=== PATIENT | female | born 1940 | race Caucasian/White ===

== ENCOUNTER → 2018-06-17 09:36 | Outpatient (CLI) | payer MEDICARE, OTHER, SELFPAY ==
[2018-06-17 09:59] LABS: Add Manual Diff / Slide Review NO; Basophils Percent Auto 1.2 % (0-2); Eosinophils Percent Auto 2.6 % (2-4); Hematocrit 39.8 % (36-46); Hemoglobin 13.9 g/dL (12.0-16.0); Lymphocytes Percent Auto 22.4 % (25-40); Mean Corpuscular HGB Conc 34.9 % (30-36); Mean Corpuscular Hemoglobin 31.5 PG (26-34); Mean Corpuscular Volume 90.3 fL (80-100); Monocytes Percent Auto 9.1 % (3-14); Neutrophils Absolute Auto 3400 /uL (3000-5900); Neutrophils Percent Auto 64.7 % (50-75); Platelet Count 120 X10^3/uL (150-400); Red Blood Cell Count 4.41 X10^6/uL (4.0-5.2); Red Cell Distribution Width 12.6 % (11.6-14.8); White Blood Cell Count 5.2 X10^3/uL (4.5-11.0)
[2018-06-17 10:12] LABS: Alanine Aminotransferase 43 IU/L (9-52); Albumin 4.3 g/dL (3.5-5.0); Albumin Globulin Ratio 1.2 (1.0-2.8); Alkaline Phosphatase 63 U/L (38-126); Aspartate Aminotransferase 49 IU/L (14-36); BUN Creatinine Ratio 21.4 (6-22); Bilirubin Total 0.7 mg/dL (0.2-1.3); Blood Urea Nitrogen 15 mg/dL (7-17); Calcium 9.5 mg/dL (8.4-10.2); Carbon Dioxide 28 mmol/L (22-32); Chloride 104 mmol/L (98-107); Estimated Glomerular Filt Rate > 60.0 mL/min (>60); Globulin 3.7 g/dL (1.7-4.1); Glucose 101 mg/dL (80-110); HEMOLYSIS < 15 (0-50); Potassium 3.6 mmol/L (3.4-5.1); Sodium 141 mmol/L (137-145)
[2018-06-17 10:56] LABS: Carcinoembryonic Antigen 2.2 ng/mL (0.1-3.0)
== END ==
PROVIDERS: PCP Family Medicine; Visit Provider Internal Medicine Hematology & Oncology
DX: C34.90 Malignant neoplasm of unspecified part of unspecified bronchus or lung (principal)
CPT/HCPCS: 36415; 80053; 82378; 85025

== ENCOUNTER → 2018-06-17 09:55 | Outpatient (CLI) | payer MEDICARE, OTHER, SELFPAY ==
--- NOTE | 2018-06-17 09:58 | DI.CT.S_ITS ---
PROCEDURE: CT CHEST W CON INDICATIONS: LUNG CANCER SURVEILLANCE TECHNIQUE: After the administration of intravenous contrast, 5 mm thick sections acquired from the pulmonary apices to the posterior costophrenic angles. 7 mm thick coronal and sagittal MIP reformats were acquired. For radiation dose reduction, the following was used: automated exposure control, adjustment of mA and/or kV according to patient size. COMPARISON: [facility], CT, CHEST/ABDOMEN WITH CONTRAST, 11/06/2016, 10:37. [facility], CT, CHEST/ABDOMEN WITH CONTRAST, 05/27/2017, 12:40. FINDINGS: Image quality: Excellent. Lungs and pleura: Redemonstration of bilateral perihilar ill-defined consolidation, confluent soft tissue attenuation, architectural distortion and ground glass attenuation. There is questionable increase in left perihilar subcentimeter focus on image 27 series 3 although other areas of previously identified consolidation appear less conspicuous. Overall, the appearance is probably unchanged accounting for slice registration artifact, since 05/27/17 No pleural effusions or pneumothorax. Central and peripheral airways are patent and normal in caliber. Upper lobe predominant centrilobular emphysema. Mediastinum: Heart size is normal. Coronary artery calcifications are noted. No pericardial effusion. Subcarinal abnormal confluent lymphoid soft tissue presumably treated disease given the unchanged appearance since the prior study. Thoracic aorta and central pulmonary arteries are normal in size. Aberrant right subclavian artery, status post stent placement. Esophagus is normal in caliber. No hiatal hernia. Bones and chest wall: No suspicious bony lesions. T7 compression fracture as before. No axillary or supraclavicular adenopathy by size criteria. Thyroid gland negative. Abdomen: Bilateral renal cortical atrophy and scarring. Hepatic steatosis. IMPRESSION: Overall, grossly unremarkable appearance of the presumed post therapeutic changes/fibrosis involving the bilateral perihilar regions since 05/27/17; no significant change. Confluent mediastinal lymphoid soft tissue also presumably treated disease given the absence of change. No specific evidence of active metastatic disease. Dictated by: Juan C Goodman M.D. on 06/17/2018 at 11:33 Approved by: Juan C Goodman M.D. on 06/17/2018 at 12:15
== END ==
PROVIDERS: PCP Family Medicine; Visit Provider Internal Medicine Hematology & Oncology
DX: C34.90 Malignant neoplasm of unspecified part of unspecified bronchus or lung (principal)
CPT/HCPCS: 36415; 71260; 80053; 82378; 85025; Q9967

== ENCOUNTER → 2018-08-12 16:00 | Outpatient (CLI) | payer MEDICARE, OTHER, SELFPAY ==
--- NOTE | 2018-08-12 16:02 | DI.RAD.S_ITS ---
PROCEDURE: XR THORACIC SPINE 3V INDICATIONS: thoracic back pain without trauma TECHNIQUE: 3 views of the thoracic spine were acquired. COMPARISON: [facility], CR, XR CHEST 2 VIEWS, 09/21/2017, 8:04. [facility], CT, CT CHEST W CON, 06/17/2018, 10:15. FINDINGS: Bones: There is a mild superior endplate deformity at T8, unchanged. There is multilevel disc desiccation is present. No suspicious bony lesions. 12 pairs of ribs are noted, and appear intact where visualized. Soft tissues: No paravertebral stripe thickening. IMPRESSION: Unchanged superior endplate deformity at T8. Multilevel disc desiccation. Dictated by: Sandy Mathews M.D. on 08/12/2018 at 17:05 Approved by: Sandy Mathews M.D. on 08/12/2018 at 17:07
== END ==
PROVIDERS: PCP Family Medicine; Visit Provider Family Medicine
DX: M54.6 Pain in thoracic spine (principal)
CPT/HCPCS: 72072

== ENCOUNTER → 2018-12-29 10:42 | Outpatient (CLI) | payer MEDICARE, OTHER, SELFPAY ==
[2018-12-29 11:23] LABS: Add Manual Diff / Slide Review NO; Basophils Absolute Auto 100 /uL (0-100); Basophils Percent Auto 1.1 % (0-2); Eosinophils Absolute Auto 100 /uL (0-450); Eosinophils Percent Auto 2.6 % (2-4); Hematocrit 41.7 % (36-46); Hemoglobin 13.9 g/dL (12.0-16.0); Lymphocytes Absolute Auto 1100 /uL (1100-4500); Lymphocytes Percent Auto 24.8 % (25-40); Mean Corpuscular HGB Conc 33.4 % (30-36); Mean Corpuscular Hemoglobin 30.5 PG (26-34); Mean Corpuscular Volume 91.2 fL (80-100); Monocytes Absolute Auto 500 /uL (0-900); Monocytes Percent Auto 10.8 % (3-14); Neutrophils Absolute Auto 2800 /uL (1500-7000); Neutrophils Percent Auto 60.7 % (50-75); Platelet Count 139 X10^3/uL (150-400); Red Blood Cell Count 4.58 X10^6/uL (4.0-5.2); Red Cell Distribution Width 13.3 % (11.6-14.8); White Blood Cell Count 4.6 X10^3/uL (4.5-11.0)
[2018-12-29 11:30] LABS: Alanine Aminotransferase 45 IU/L (9-52); Albumin 4.1 g/dL (3.5-5.0); Alkaline Phosphatase 67 U/L (38-126); Aspartate Aminotransferase 50 IU/L (14-36); BUN Creatinine Ratio 15.7 (6-22); Bilirubin Total 0.4 mg/dL (0.2-1.3); Blood Urea Nitrogen 11 mg/dL (7-17); Calcium 9.1 mg/dL (8.4-10.2); Carbon Dioxide 28 mmol/L (22-32); Chloride 102 mmol/L (98-107); Estimated Glomerular Filt Rate > 60.0 mL/min (>60); Glucose 95 mg/dL (80-110); HEMOLYSIS < 15 (0-50); Potassium 3.9 mmol/L (3.4-5.1); Sodium 140 mmol/L (137-145); Total Protein 8.1 g/dL (6.3-8.2)
[2018-12-29 11:59] LABS: Carcinoembryonic Antigen 2.5 ng/mL (0.1-3.0)
== END ==
PROVIDERS: Visit Provider Nurse Practitioner Gerontology
DX: Z85.118 Personal history of other malignant neoplasm of bronchus and lung (principal); J44.9 Chronic obstructive pulmonary disease, unspecified; I73.9 Peripheral vascular disease, unspecified; I48.91 Unspecified atrial fibrillation; Z86.718 Personal history of other venous thrombosis and embolism; F17.200 Nicotine dependence, unspecified, uncomplicated
CPT/HCPCS: 36415; 80053; 82378; 85025

== ENCOUNTER → 2019-03-10 14:40 | Oncology outpatient (ONC) | payer MEDICARE, OTHER, SELFPAY ==
[2018-07-01 14:03] VITALS: BP 106/47; PULSE 70; RESP 16; TEMP 36.4; O2SAT 99
--- NOTE | 2018-07-01 14:03 | ONC.PN ---
Assessment and Plan - Time Spent with Patient IMPRESSION: 1. 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 Stage T1 N3 by PET/CT. Completed chemoradiation therapy, November 23, [address] Pepe and Dr[address] Jessica. 2. COPD 3. Tobacco use, ongoing. 4. Weight loss, stabilized. 5. Peripheral vascular disease 6. Atrial fibrillation 7. History of DVT, 25 years ago. I reviewed her current lab results and recent CT chest from June 17, 2018 which reports stable post treatment related fibrosis without change compared with prior CT 05/27/2017. No new pulmonary nodules, masses, fluid collection or adenopathy to suggest recurrent disease. She otherwise is feeling well and appears to be stable clinically. She is very pleased with the results of her lab and CT imaging. We reviewed other issues, questions and concerns today. I strongly encouraged her in her efforts to quit smoking, hopefully permanently. Reviewed other symptoms to monitor for an to call back as needed if new concerns arise. We otherwise will plan to see her back in 6 months. PLAN: 1. Continue self monitoring and call back as needed. 2. Return appointment in 6 months. 3. CBC, CMP, CEA prior to the visit. 4. Repeat CT imaging in 6-12 months or based on symptoms or clinical concerns. 5. Follow-up with Dr. Bennett as planned. DICTATED BY GILA CHAPA MD MEDICAL ONCOLOGY AND HEMATOLOGY PN -Subjective Interval history: IDENTIFICATION: Ms. Umanzor is a 78-year-old woman with history of stage IIIB squamous cell carcinoma of the lung, diagnosed in 2014 and completed treatment with chemoradiation therapy, 11/23/2015. INTERVAL HISTORY: She returns today in follow-up to review labs and CT results. Here today with her daughter. She is under a bit more stress since her son . She had stopped smoking then restarted then quit then restarted. Otherwise, she is feeling well and gaining strength. She feels better than a few months ago and has no new symptoms or other concerns. She denies chest pain, productive cough or hemoptysis. No nausea, vomiting or abdominal discomfort, headaches or new neurologic symptoms. Anxious to learn her lab and CT results today but otherwise encouraged and feeling better. PAST MEDICAL HISTORY: 1. 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 Diagnosed by [facility] in [place]. Stage T1 N3 M0 by PET/CT. Completed chemoradiation therapy, 11/23/2015, with treatment guided by Dr. Jessica and Dr. Pepe. 2. Peripheral vascular disease. 3. COPD. 4. Tobacco use. 5. Atrial fibrillation. 6. DVT 25 years ago. 7. Status post hysterectomy with ovaries left in place. PHYSICAL EXAMINATION: She is a pleasant, thin, elderly woman who appears comfortable at today's appointment and not in acute distress. VITAL SIGNS: Blood pressure 95/50, pulse 56, respirations 18 and unlabored, temperature 98.1, weight 51.2 kg, 112.8 pounds. SKIN: No rash or ecchymoses. HEENT: Sclerae anicteric. PERRL. EOMI. Oropharynx clear. LYMPH: No palpable cervical or supraclavicular adenopathy. LUNGS: Clear bilaterally without wheeze or rales. CARDIAC: No JVD. Regular rate and rhythm. No S3. ABDOMEN: Soft, nontender. No hepatosplenomegaly or mass palpable. EXTREMITIES: Trace pedal edema bilaterally with dependent rubor. LABORATORY: 12/12/2017: WBC 5000, hemoglobin 15.1, hematocrit 43.3, platelet count 136,000. Sodium 137, potassium 4, chloride 100, CO2 29, BUN 13, creatinine 0.8, calcium 9.4, glucose 92, CEA 2. Albumin 4.4, globulin 4.4, total bilirubin 0.5, alkaline phosphatase 64, AST 69, ALT 50. IMPRESSION: 1. Stage IIIB (T1 N3) squamous cell carcinoma of the lung, diagnosed in 2014, and status post treatment with chemoradiation therapy by Dr. Pepe and Dr. Jessica, with treatment completing 11/23/2015. 2. Chronic obstructive pulmonary disease (COPD). 3. Tobacco use. 4. Weight loss, gradual and chronic, due to inadequate caloric intake by history. 5. Shoulder pain. - Additional ROS Additional ROS: Review of systems: General: No fever, night sweats. HEENT: No headaches, vision change, epistaxis or dysphagia. Respiratory as above. Cardiac: No chest pain, PND or orthopnea. GI: Negative. : Negative. Musculoskeletal: As above. Neurologic: Negative. Results - Imaging Additional studies: Procedures Colonoscopy (02/13/12) Other endoscopy of small intestine (02/13/12) Home Medications and Allergies Home Medications Medication Instructions Recorded Confirmed Type omeprazole 20 mg PO QDAY #30 cap 07/31/17 05/08/18 Rx carvedilol [Coreg] 12.5 mg PO BID #180 tab 08/13/17 05/08/18 Rx hydrocodone-acetaminophen 1 tab PO Q6HP PRN #20 tab 09/26/17 05/08/18 Rx atorvastatin [Lipitor] #0 12/13/17 05/08/18 History lisinopril #0 12/13/17 05/08/18 History primidone [Mysoline] 50 mg PO Q DAY #30 tab 02/18/18 05/08/18 Rx diphenoxylate-atropine 2.5 1 tab PO TIDP PRN #60 tab 04/04/18 05/08/18 Rx mg-0.025 mg tablet clonazepam 0.5 mg tablet 0.5 mg PO BID PRN #60 tab 05/08/18 Rx atorvastatin 40 mg tablet 40 mg PO DAILY #30 tab 06/05/18 Rx Allergies Allergy/AdvReac Type Severity Reaction Status Date / Time Penicillins [PENICILLINS] Allergy Severe RASH, SOB Verified 05/22/18 10:29 Sulfa (Sulfonamide Allergy Severe SOB Verified 05/22/18 10:29 Antibiotics) [SULFA (SULFONAMIDE ANTIBIOTICS)] Exam - Constitutional positive no acute distress, positive thin, positive cooperative - Routine HEENT Exam Head: Present: normocephalic, atraumatic. Absent: cushingoid faces, facial swelling Eye: Present: EOMI, PERRL. Absent: conjunctival icterus, scleral injection, periorbital ecchymosis, periorbital swelling ENT: Present: mucous membranes moist, oropharynx clear - Routine Neck Exam Present: full ROM. Absent: JVD, lymphadenopathy - Routine Chest/Breast/Axilla Exam Chest wall exam standard: Absent: mass Axillae: Absent: lymphadenopathy - Routine Respiratory Exam Present: Clear to auscultation bilaterally. Absent: accessory muscle use, rales, respiratory distress, rhonchi, wheezes - Routine Cardiovascular Exam Present: RRR, S1, S2. Absent: murmur, S3 - Routine Abdominal Exam Present: soft, normoactive bowel sounds. Absent: tenderness, distended, organomegaly Palpation/Percussion: Absent: hepatomegaly - Routine Extremities Exam Absent: cyanosis, clubbing, edema - Routine Back/Spine Exam Back/Spine: Absent: paraspinal tenderness, vertebral tenderness - Routine Skin Exam Present: intact. Absent: cyanosis, erythema, petechiae, jaundice, rash, ecchymosis - Routine Neurological Exam Present: alert, oriented X3, moving all extremities, normal speech. Absent: altered mental status, abnormal gait - Routine Psychiatric Exam Present: normal affect, normal thought process, cooperative, good judgment
[2019-03-10 14:45] VITALS: BP 140/88; PULSE 61; RESP 22; TEMP 36.2; O2SAT 100
--- NOTE | 2019-03-10 15:06 | ONC.PN ---
PN -Subjective Interval history: IDENTIFICATION: Ms. Umanzor is a 78-year-old woman with history of stage IIIB squamous cell carcinoma of the lung, diagnosed in 2014 and completed treatment with chemoradiation therapy, 11/23/2015. INTERVAL HISTORY: She returns today for follow-up. She has a history of squamous cell lung cancer treated with chemo radiation finishing in 2014. Today, she is feeling generally well. she has been stable in her weight. She is swallowing without any difficulty in her appetite has been fair. She denies any worsening shortness of breath or cough. She is not having any chest pain. strength and energy level have been low but stable. She has been bothered by some ongoing tremors. She notes that her memory has been poor since the chemotherapy but may be getting a little bit better. She has not noted any adenopathy. No GI complaints. She tells me that she is having some sort of test done to evaluate stents in her carotid arteries. She denies any other changes in her health. Her medications include aspirin Lipitor carvedilol lisinopril omeprazole Mysoline and tramadol. She does smoke about 3-4 cigarettes daily but has been cutting back and is trying to quit. PAST MEDICAL HISTORY: 1. 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 Diagnosed by [facility] in [place]. Stage T1 N3 M0 by PET/CT. Completed chemoradiation therapy, 11/23/2015, with treatment guided by Dr. Jessica and Dr. Pepe. 2. Peripheral vascular disease. 3. COPD. 4. Tobacco use. 5. Atrial fibrillation. 6. DVT 25 years ago. 7. Status post hysterectomy with ovaries left in place. Home Medications and Allergies Home Medications Medication Instructions Recorded Confirmed Type carvedilol [Coreg] 12.5 mg PO BID #180 tab 08/13/17 03/03/19 Rx omeprazole 20 mg capsule,delayed 20 mg PO QDAY #30 cap 08/07/18 03/03/19 Rx release primidone 50 mg tablet 50 mg PO Q DAY #30 tab 09/29/18 03/03/19 Rx aspirin 81 mg tablet,delayed 81 mg PO BID tab 03/03/19 03/03/19 History release atorvastatin 10 mg tablet 10 mg PO DAILY #0 tab 03/03/19 03/03/19 History lisinopril 2.5 mg tablet 2.5 mg PO DAILY #0 tab 03/03/19 03/03/19 History tramadol 50 mg tablet 50 mg PO Q12H PRN 30 Days #60 tab 03/03/19 Rx Allergies Allergy/AdvReac Type Severity Reaction Status Date / Time Penicillins [PENICILLINS] Allergy Severe RASH, SOB Verified 03/03/19 13:28 Sulfa (Sulfonamide Allergy Severe SOB Verified 03/03/19 13:28 Antibiotics) [SULFA (SULFONAMIDE ANTIBIOTICS)] Exam Vital signs: Vital Signs Temp Pulse Resp BP Pulse Ox 03/10/19 14:45 97.1 F L 61 22 140/88 100 Intake and Output 03/09/19 03/10/19 03/10/19 23:59 07:59 15:59 Other: Weight 53.4 kg Patient Weight 03/10/19 23:59 Weight 53.4 kg - Constitutional positive no acute distress, positive thin - Routine HEENT Exam Head: Present: normocephalic, atraumatic Eye: Present: EOMI, PERRL. Absent: conjunctival icterus, scleral injection ENT: Present: mucous membranes moist, oropharynx clear - Routine Neck Exam Present: supple. Absent: lymphadenopathy, thyromegaly - Routine Respiratory Exam Present: Clear to auscultation bilaterally. Absent: rales, wheezes - Routine Cardiovascular Exam Present: RRR, S1, S2. Absent: murmur - Routine Abdominal Exam Present: soft, normoactive bowel sounds. Absent: tenderness, organomegaly - Routine Extremities Exam Absent: cyanosis, clubbing, edema Comments: She does have some deformities in the hands consistent with osteoarthritis. - Routine Back/Spine Exam Back/Spine: Present: vertebral tenderness - Routine Skin Exam Present: intact. Absent: petechiae, rash - Routine Neurological Exam Present: alert, oriented X3, tremors - Routine Psychiatric Exam Present: normal affect, normal thought process Results - Imaging Additional studies: Procedures Colonoscopy (02/13/12) Other endoscopy of small intestine (02/13/12) Assessment and Plan (1) Malignant neoplasm of lung Current visit: No Status: Acute 78-year-old woman with a history of stage III squamous cell lung cancer. She has a little bit more than 3 years out from the end of her therapy. She has no evidence of disease. I encouraged her to continue working to quit smoking. She will return to clinic in 6 months for follow-up. She will be due for a CT scan of the chest at that time.
== END ==
PROVIDERS: PCP Family Medicine
DX: Z08 Encounter for follow-up examination after completed treatment for malignant neoplasm (principal); Z85.118 Personal history of other malignant neoplasm of bronchus and lung; F17.210 Nicotine dependence, cigarettes, uncomplicated; I48.91 Unspecified atrial fibrillation; J44.9 Chronic obstructive pulmonary disease, unspecified; I73.9 Peripheral vascular disease, unspecified
CPT/HCPCS: 99214

== ENCOUNTER → 2019-07-27 09:59 | Outpatient (CLI) | payer MEDICARE, OTHER, SELFPAY ==
[2019-07-27 11:09] LABS: Creatinine Urine Random 12.3 mg/dL
[2019-07-27 11:14] LABS: Microalbumi Creatinin Ratio Ur 105.6 ug/mg CR (<30); Microalbumin Urine Random 1.3 mg/dL (0-1.6)
[2019-07-27 11:33] LABS: Hematocrit 39.4 % (36-46); Hemoglobin 13.7 g/dL (12.0-16.0); Mean Corpuscular HGB Conc 34.7 % (30-36); Mean Corpuscular Volume 89.3 fL (80-100); Platelet Count 131 X10^3/uL (150-400); Red Blood Cell Count 4.41 X10^6/uL (4.0-5.2); Red Cell Distribution Width 12.9 % (11.6-14.8); White Blood Cell Count 6.3 X10^3/uL (4.5-11.0)
[2019-07-27 12:13] LABS: Alanine Aminotransferase 36 IU/L (9-52); Albumin 4.2 g/dL (3.5-5.0); Alkaline Phosphatase 84 U/L (38-126); Aspartate Aminotransferase 54 IU/L (14-36); BUN Creatinine Ratio 14.3 (6-22); Bilirubin Total 0.5 mg/dL (0.2-1.3); Blood Urea Nitrogen 10 mg/dL (7-17); Calcium 9.8 mg/dL (8.4-10.2); Carbon Dioxide 27 mmol/L (22-32); Chloride 105 mmol/L (98-107); Cholesterol 123 mg/dL (140-199); Estimated Glomerular Filt Rate > 60.0 mL/min (>60); Globulin 4.1 g/dL (1.7-4.1); Glucose 79 mg/dL (80-110); HDL Cholesterol 60 mg/dL (40-60); HEMOLYSIS < 15 (0-50); LDL Cholesterol Calculated 46 mg/dL (<100); Potassium 4.4 mmol/L (3.4-5.1); Sodium 140 mmol/L (137-145); Total Protein 8.3 g/dL (6.3-8.2); Triglycerides 84 mg/dL (35-150)
== END ==
PROVIDERS: Visit Provider Nurse Practitioner Family
DX: I10 Essential (primary) hypertension (principal)
CPT/HCPCS: 36415; 80053; 80061; 82043; 82570; 85027

== ENCOUNTER → 2019-12-30 12:34 | Outpatient (CLI) | payer MEDICARE, OTHER, SELFPAY ==
[2019-12-30 14:09] LABS: HEMOLYSIS < 15 (0-50); Iron 58 ug/dL (37-170)
[2019-12-30 14:11] LABS: Alanine Aminotransferase 31 IU/L (<35); Albumin 4.6 g/dL (3.5-5.0); Albumin Globulin Ratio 1.1 (1.0-2.8); Alkaline Phosphatase 87 U/L (38-126); Aspartate Aminotransferase 51 IU/L (14-36); BUN Creatinine Ratio 16.3 (6-22); Bilirubin Total 0.5 mg/dL (0.2-1.3); Bilirubin Unconjugated 0.2 mg/dL (0.0-1.1); Blood Urea Nitrogen 13 mg/dL (7-17); Carbon Dioxide 24 mmol/L (22-32); Chloride 102 mmol/L (98-107); Estimated Glomerular Filt Rate > 60.0 mL/min (>60); Globulin 4.3 g/dL (1.7-4.1); Glucose 110 mg/dL (80-110); HEMOLYSIS < 15 (0-50); Magnesium 1.9 mg/dL (1.6-2.3); Potassium 4.1 mmol/L (3.4-5.1); Sodium 140 mmol/L (137-145); Total Protein 8.9 g/dL (6.3-8.2)
[2019-12-30 14:20] LABS: Percent Iron Saturation 12 % (15-50); Total Iron Binding Capacity 498 ug/dL (265-497); Transferrin 412 mg/dL (206-381)
[2019-12-30 14:44] LABS: Ferritin 16.9 ng/mL (11.1-264)
[2020-01-05 10:12] LABS: Hepatitis B Core Antibody IgM NONREACTIVE; Hepatitis B Surface Antigen NONREACTIVE
[2020-01-05 11:21] LABS: Hepatitis C Antibody REACTIVE
[2020-01-06 12:54] LABS: Hepatitis A Antibody IgM NONREACTIVE
== END ==
PROVIDERS: PCP Nurse Practitioner Family; Visit Provider Nurse Practitioner Family
DX: R74.8 Abnormal levels of other serum enzymes (principal); M62.838 Other muscle spasm; I10 Essential (primary) hypertension; B19.20 Unspecified viral hepatitis C without hepatic coma; Z13.818 Encounter for screening for other digestive system disorders
CPT/HCPCS: 36415; 80053; 80074; 80076; 82728; 83540; 83550; 83735; 87522

== ENCOUNTER → 2020-01-13 11:02 | Outpatient (CLI) | payer MEDICARE, OTHER, SELFPAY ==
[2020-01-13 12:15] LABS: Cholesterol 123 mg/dL (140-199); HDL Cholesterol 52 mg/dL (40-60); LDL Cholesterol Calculated 52 mg/dL (<100); Triglycerides 94 mg/dL (35-150)
== END ==
PROVIDERS: PCP Nurse Practitioner Family; Referring Provider Internal Medicine Cardiovascular Disease; Visit Provider Internal Medicine Cardiovascular Disease
DX: E78.2 Mixed hyperlipidemia (principal)
CPT/HCPCS: 36415; 80061

== ENCOUNTER → 2020-02-19 09:38 | Outpatient (CLI) | payer MEDICARE, OTHER, SELFPAY ==
[2020-02-19 11:09] LABS: Influenza A - CEPHEID Flu A NEGATIVE (NEGATIVE); Influenza B - CEPHEID Flu B NEGATIVE (NEGATIVE)
[2020-02-22 06:03] LABS: COVID19 Sendout Not Detected (Not Detected)
== END ==
PROVIDERS: PCP Nurse Practitioner Family; Visit Provider Registered Nurse
DX: R68.89 Other general symptoms and signs (principal)
CPT/HCPCS: 87502

== ENCOUNTER 2020-02-27 11:33 | Inpatient (IN) | payer MEDICARE, OTHER, SELFPAY ==
[2020-02-27] VITALS (10 sets, daily range): BP systolic 100–125; BP diastolic 50–82; PULSE 66–101; RESP 14–28; TEMP 36.2–37.3; O2SAT 91–98; BMI 24.1
--- NOTE | 2020-02-27 11:50 | DI.RAD.S_ITS ---
PROCEDURE: XR HIP W PEL IF DONE LT 2V INDICATIONS: GLF, Groin pain, and tenderness on palpation of femoral head TECHNIQUE: AP pelvis with lateral view(s) of the left hip(s). COMPARISON: [facility], RG, XR PELVIS WITH LATERAL HIP, 04/30/2006, 7:48. [facility], CR, XR CHEST 1V, 02/27/2020, 13:15. [facility], CR, XR LUMBAR SPINE 2-3V, 02/27/2020, 13:15. [facility], CT, CT HEAD/BRAIN WO CON, 02/27/2020, 13:09. [facility], CT, CT CERVICAL SPINE WO CON, 02/27/2020, 13:09. FINDINGS: Bones: There is a mildly displaced, impacted subcapital left femoral neck fracture. No additional fractures are detected. No dislocation can be seen. Age-appropriate bony degenerative changes are seen. Soft tissues: The visualized bowel gas pattern is normal. No suspicious soft tissue calcifications. IMPRESSION: Subcapital left femoral neck fracture. Please consider a dedicated CT of the hip for further evaluation. Dictated by: Danis Morgan M.D. on 02/27/2020 at 13:08 Approved by: Danis Morgan M.D. on 02/27/2020 at 13:10
--- NOTE | 2020-02-27 12:44 | ED_ITS ---
HPI - Extremity Injury (Lower) General Chief Complaint: Extremity Injury, Lower Stated Complaint: fell out of bed, left leg/hip/groin pain-neg covid Time Seen by Provider: 02/27/20 12:34 Source: patient Mode of arrival: Wheelchair History of Present Illness HPI Narrative: HPI: The patient is a 79-year-old female who appears great it pale and chronically ill states that she fell out of bed. She states that she was trying to get up and she slid out of bed and landed on her buttocks. She told me that she got back up and into bed.However, she told the nurse that she remained on the floor until her family found her this morning. The patient was brought into the emergency department to be evaluated complaining of pain primarily in her groin. The patient was exquisitely tender to palpation over her left pubis. The patient was unable to walk. She was complaining of low back pain. She denied striking her head however she has a headache at this time. And her neck was stiff and sore. This injury happened last night. The patient is a poor historian however she is oriented to time and that she is here in the [facility]. She denies a history of diabetes mellitus but admits to a history of hypertension asthma and COPD. The patient intermittently smoke cigarettes. She does not drink alcohol and has smoked marijuana in the past. She has had intermittent sweats but denies any fever or chills. She is complaining of a headache without sore throat or sinus congestion. She has had a cough on productive of any sputum that is deep in rattling. She chronically has shortness of breath but denies any chest pain or palpitations. She is not having any nausea vomiting abdominal pain diarrhea or urinary symptoms. Related Data Home Medications Medication Instructions Recorded Confirmed aspirin 81 mg tablet,delayed 81 mg PO BID tab 03/03/19 02/19/20 release atorvastatin 10 mg tablet 10 mg PO DAILY #0 tab 03/03/19 02/19/20 lisinopril 2.5 mg tablet 2.5 mg PO DAILY #0 tab 03/03/19 02/19/20 multivitamin 1 tab PO DAILY 12/30/19 02/19/20 Previous Rx's Medication Instructions Recorded carvedilol [Coreg] 12.5 mg PO BID #180 tab 08/13/17 omeprazole 20 mg capsule,delayed 20 mg PO QDAY #90 cap 09/29/19 release primidone 50 mg tablet 50 mg PO Q DAY #90 tab 12/17/19 nicotine 21 mg/24 hr daily 1 patch TRANSDERMAL DAILY #28 each 12/30/19 transdermal patch albuterol sulfate 90 mcg/actuation 2 inhalation INHALATION Q4-6H PRN 02/19/20 aerosol inhaler #8 gram Allergies Allergy/AdvReac Type Severity Reaction Status Date / Time Penicillins [PENICILLINS] Allergy Severe RASH, SOB Verified 02/19/20 08:55 Sulfa (Sulfonamide Allergy Severe SOB Verified 02/19/20 08:55 Antibiotics) [SULFA (SULFONAMIDE ANTIBIOTICS)] Review of Systems Review of Systems Narrative: Her review of systems were all negative except for those mentioned in the history of present illness. 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 Unknown) Carotid artery disease (Chronic Unknown) Chronic viral hepatitis, unspecified (Chronic Unknown) Chronic wound of extremity (Resolved ~01/2012) COPD (chronic obstructive pulmonary disease) (Chronic Unknown) Coronary artery disease involving [place] coronary artery of [place] heart without angina pectoris (10/20/15) Decreased platelet count (Acute) Degenerative joint disease involving multiple joints (Chronic Unknown) Elevated liver enzymes (Acute) Essential hypertension (10/20/15) Essential tremor (11/29/16) Fatigue (Chronic) Fibromyalgia (Chronic Unknown) Gastroesophageal reflux disease without esophagitis (10/20/15) GERD (gastroesophageal reflux disease) (Chronic Unknown) Hx of cancer of lung (Resolved 08/2015) Hyperlipidemia (Chronic Unknown) Hypertension (Chronic Unknown) Low back pain (Chronic) Malignant neoplasm of lower lobe of left lung (10/20/15) Migraines (Chronic Unknown) Mixed hyperlipidemia (10/20/15) Muscle spasm of both lower legs (Acute) Pacemaker (Chronic 07/2017) Peripheral neuropathy (Chronic Unknown) Peripheral vascular disease (10/20/15) Renal artery stenosis (Chronic Unknown) Sleep apnea (Chronic Unknown) Thoracic back pain (Chronic) Tobacco abuse (Acute) Vascular insufficiency (Chronic Unknown) Surgical History History of permanent cardiac pacemaker placement (Resolved 10/2017) Hx of appendectomy (Resolved Unknown) Hx of hysterectomy (Resolved Unknown) Hx of tonsillectomy (Resolved Unknown) Social History household members: children Smoking Status: Current every day smoker quit status: considering quitting second hand exposure: Yes alcohol intake: never substance use type: marijuana Smoking Status: Current every day smoker Exam Narrative Exam Narrative: PHYSICAL EXAM: CONSTITUTIONAL: Awake, his swelling and and moving her right leg around but not her left leg or left hip. Her left hip is flexed. Movement of her left hip causes severe pain and discomfort. She is tender to palpation over her left pubic rami. The patient is very restless. She appears ashen calvillo in color. He is chronically ill-appearing HEAD: AT/NC EENT: PERRL, FROM of eyes, no discharge, External auditory canals are partially occluded. The portion of the tympanic membrane that I visualized did not reveal any hemotympanum. No epistaxis or nasal drainage Oral mucosa is moist and pink, posterior pharynx is without erythema or exudate. NECK: The patient is tender to palpation over the cervical spine diffusely. There is no bony deformity. No tenderness over the left costovertebral angle. SPINE: No gross deformity, no palpable tenderness of the cervical, thoracic, lumbar or sacral spine. THORAX: Increased AP diameter without retractions or tenderness. She has a pacemaker defibrillator in her left chest. LUNGS: He has inspiratory crackles in both bases of her lung with diffuse expiratory rhonchi with wheezes. HEART: Regular rhythm with a grade 1-2/6 systolic murmur along left sternal border. ABDOMEN: Soft, non-tender, without guarding, rebound, rigidity or palpable mass EXTREMITIES: The patient is moving her right leg around . She has held her left hip flexed. And motionless. SKIN: No rash, bruising, petechiae or purpura. NEURO: Awake, alert, cranial nerves II-XII are symmetrical moves all 4 extremities Initial Vital Signs Initial Vital Signs: Vital Signs Temperature 98.4 F 02/27/20 11:45 Respiratory Rate 14 02/27/20 11:45 Blood Pressure 125/66 02/27/20 11:45 Pulse Oximetry 98 02/27/20 11:45 Course Course Course Narrative: 1245: The patient had an unwitnessed fall out of bed last night. She got up and got herself back into bed. This morning she is complaining of severe pain in her pelvis and in her left hip. She is also complaining of neck pain and headache. She does not remember striking her head neck. 1445: Lumbar spine x-ray revealed focal L4-L5-L5-S1 degenerative changes without acute fracture CXR: Chest x-ray reveals diffuse interstitial prominence which is attributed to pulmonary edema. HIP and Pelvis xray reveals a subcapital left femoral neck fracture. CT of Head: No acute intracranial hemorrhage is seen. No displaced calvarial fracture can be seen. Cervical Spine CT: Reveals no definite acute fractures of the cervical spine visualized. However there is motion artifact in evaluation of the lower cervical spine is limited.Remote C5 anterior Wedge deformity. I will call and discuss the patient with Dr. Hinton the orthopedic surgeon on- call. Laboratory chemistries reveal a WBC of 12.8, hemoglobin 9.0, hematocrit 27.5, EGFR greater than 60, glucose 154, liver function tests except for AST are within normal limits AST is 43. CPK is 140. On February 18 the the patient's influenza a and B and [place] virus were reported to be negative. Discussed with Dr. Hinton, admit to medicine and he will consult. 1625: The patient has become agitated. A set of blood gases on room air reveals that her pH is 7.37 to her pCO2 is 20.4 O2 is 47 and her oxygen saturation is 83% consistent with hypoxia. She will be placed on nasal oxygen and assess her oxygen saturation she may need to be placed on the CPAP or BiPAP. For her agitation she is being administered 1 mg of Haldol. 1632: The nursing and respiratory therapy is having a hard time keeping her oxygen monitor on her. The patient has been placed on 5 L of oxygen and her oxygen saturation has been 97-99%. The patient has calmed down significantly with 1 mg of Haldol IV. The question will need to be re-evaluated to see whether not she is retaining CO2 as result of being placed on the oxygen. Chest x-ray revealed prominence of the interstitial markings consistent with collette estive heart failure. The patient's IV has been changed to keep vein open at 75 cc/hour. She will be administered 20 mg of Lasix IV push to see whether not this helps and improves her oxygen saturation. Orders Ordered: ED Orders 02/27/20 11:50 XR hip w pel if done LT 2V Stat 02/27/20 12:46 CT cervical spine wo con Stat CT head/brain wo con Stat 02/27/20 12:52 XR chest 1V Stat XR lumbar spine 2-3V Stat 02/27/20 13:47 UA Complete [Urinalysis and Microscopic] Stat 02/27/20 13:57 CBC Auto Diff [Complete Blood Count AUTO DIFF] Stat CMP [Comprehensive Metabolic Panel] Stat CPK [Creatine Kinase] Stat NT-proBNP (BNP-Adult 18+) Stat Troponin & CK Cardiac Panel Stat 02/27/20 16:11 Arterial Blood Gas Stat Haloperidol (Haldol) 1 mg IV Q1H PRN PRN Reason: Agitation Last Admin: 02/27/20 16:27 Dose: 1 mg Documented by: NICK Discontinued Medications Albuterol (Ventolin Hfa) 2 puff INH NOW ONE Stop: 02/27/20 14:01 Last Admin: 02/27/20 14:03 Dose: 2 puff Documented by: DANI Albuterol/Ipratropium (Duoneb) 3 ml INH NOW ONE Stop: 02/27/20 15:26 Last Admin: 02/27/20 16:01 Dose: 3 ml Documented by: DANI Furosemide (Lasix) 20 mg IV NOW ONE Stop: 02/27/20 16:32 Last Admin: 02/27/20 17:18 Dose: 20 mg Documented by: NICK Sodium Chloride (Normal Saline 0.9%) 1,000 mls @ 1,000 mls/hr IV BOLUS ONE Stop: 02/27/20 15:13 Last Infusion: 02/27/20 15:30 Dose: 0 mls/hr Documented by: Infusion: 02/27/20 15:30 Dose: 800 mls/hr Documented by: Admin: 02/27/20 14:20 Dose: 1,000 mls/hr Documented by: NICK Morphine Sulfate (Morphine) 4 mg IM NOW ONE Stop: 02/27/20 12:47 Last Admin: 02/27/20 13:09 Dose: 4 mg Documented by: NICK Morphine Sulfate (Morphine) 2 mg IV NOW ONE Stop: 02/27/20 15:26 Last Admin: 02/27/20 15:34 Dose: 2 mg Documented by: SENGEARLINE Vital Signs Vital signs: Vital Signs - 8 hr 02/27/20 11:45 02/27/20 14:04 02/27/20 15:30 Temperature 98.4 F Pulse Rate 82 80 Respiratory Rate 14 14 28 H Blood Pressure 125/66 Blood Pressure [Left Arm] 100/67 Pulse Oximetry 98 93 91 02/27/20 16:01 02/27/20 16:25 02/27/20 16:30 Temperature Pulse Rate 89 75 66 Respiratory Rate 22 20 Blood Pressure Blood Pressure [Left Arm] 115/67 Pulse Oximetry 93 94 MDM - Extremity Injury (Lower) Lab Data Result diagrams: 02/27/20 13:57 02/27/20 13:57 Labs: Lab Results 02/27/20 02/27/20 02/27/20 Range/Units 13:57 13:57 13:57 WBC 12.8 H (4.5-11.0) X10^3/uL RBC 3.48 L (4.0-5.2) X10^6/uL Hgb 9.0 L (12.0-16.0) g/dL Hct 27.5 L (36-46) % MCV 79.1 L (80-100) fL MCH 25.8 L (26-34) PG MCHC 32.6 (30-36) % RDW 13.9 (11.6-14.8) % Plt Count 168 (150-400) X10^3/uL Neut % (Auto) 85.7 H (50-75) % Lymph % (Auto) 7.2 L (25-40) % Weld % (Auto) 6.0 (3-14) % Eos % (Auto) 0.1 L (2-4) % Baso % (Auto) 1.0 (0-2) % Neut # (Auto) 12567 H (3091-1918) /uL Lymph # (Auto) 900 L (7502-7804) /uL Weld # (Auto) 800 (0-900) /uL Eos # (Auto) 0 (0-450) /uL Baso # (Auto) 100 (0-100) /uL ABG pH (7.35-7.45) ABG pCO2 (35-45) mmHg ABG pO2 (80-100) mmHg ABG HCO3 (22-26) mmol/L ABG Total CO2 (21-31) mmol/L ABG O2 Saturation (95-100) % ABG Base Excess (-2-2) mmol/L FiO2 Sodium 137 (137-145) mmol/L Potassium 3.7 (3.4-5.1) mmol/L Chloride 106 (98-107) mmol/L Carbon Dioxide 20 L (22-32) mmol/L BUN 14 (7-17) mg/dL Creatinine 0.68 (0.52-1.04) mg/dL Estimated GFR > 60.0 (>60) mL/min BUN/Creatinine Ratio 20.6 (6-22) Glucose 154 H (80-110) mg/dL Calcium 9.3 (8.4-10.2) mg/dL Total Bilirubin 0.5 (0.2-1.3) mg/dL AST 43 H (14-36) IU/L ALT 21 (<35) IU/L Alkaline Phosphatase 87 (38-126) U/L Total Creatine Kinase 140 H (30-135) U/L CK-MB (CK-2) (<2.37) ng/mL CK-MB (CK-2) Rel Index (1.5-5.0) % Troponin I (0.01-0.034) ng/mL NT-Pro-B Natriuret Pep 6220 H (<450) pg/mL Total Protein 8.3 H (6.3-8.2) g/dL Albumin 4.1 (3.5-5.0) g/dL Globulin 4.2 H (1.7-4.1) g/dL Albumin/Globulin Ratio 1.0 (1.0-2.8) 02/27/20 02/27/20 Range/Units 13:57 16:11 WBC (4.5-11.0) X10^3/uL RBC (4.0-5.2) X10^6/uL Hgb (12.0-16.0) g/dL Hct (36-46) % MCV (80-100) fL MCH (26-34) PG MCHC (30-36) % RDW (11.6-14.8) % Plt Count (150-400) X10^3/uL Neut % (Auto) (50-75) % Lymph % (Auto) (25-40) % Weld % (Auto) (3-14) % Eos % (Auto) (2-4) % Baso % (Auto) (0-2) % Neut # (Auto) (4478-0839) /uL Lymph # (Auto) (0450-0085) /uL Weld # (Auto) (0-900) /uL Eos # (Auto) (0-450) /uL Baso # (Auto) (0-100) /uL ABG pH 7.37 (7.35-7.45) ABG pCO2 29.4 L (35-45) mmHg ABG pO2 47 L* (80-100) mmHg ABG HCO3 17 L (22-26) mmol/L ABG Total CO2 18 L (21-31) mmol/L ABG O2 Saturation 83 L* (95-100) % ABG Base Excess -8.0 L (-2-2) mmol/L FiO2 21 Sodium (137-145) mmol/L Potassium (3.4-5.1) mmol/L Chloride (98-107) mmol/L Carbon Dioxide (22-32) mmol/L BUN (7-17) mg/dL Creatinine (0.52-1.04) mg/dL Estimated GFR (>60) mL/min BUN/Creatinine Ratio (6-22) Glucose (80-110) mg/dL Calcium (8.4-10.2) mg/dL Total Bilirubin (0.2-1.3) mg/dL AST (14-36) IU/L ALT (<35) IU/L Alkaline Phosphatase (38-126) U/L Total Creatine Kinase 137 H (30-135) U/L CK-MB (CK-2) 3.87 H (<2.37) ng/mL CK-MB (CK-2) Rel Index 2.8 (1.5-5.0) % Troponin I 0.022 (0.01-0.034) ng/mL NT-Pro-B Natriuret Pep (<450) pg/mL Total Protein (6.3-8.2) g/dL Albumin (3.5-5.0) g/dL Globulin (1.7-4.1) g/dL Albumin/Globulin Ratio (1.0-2.8) Discharge Plan Departure Patient Disposition: Admitted As Inpatient Clinical Impression: COPD exacerbation, Restless, Cachectic, Hypoxia, Agitation Closed left hip fracture Qualifiers: Encounter type: initial encounter Qualified Code(s): S72.002A - Fracture of unspecified part of neck of left femur, initial encounter for closed fracture Discharge Date/Time: 02/27/20 17:30 Referrals: Jose Raul Zarate ARNP [Primary Care Provider] - Admit Date/Time: 02/27/20 17:34 Admit Provider: Kevin Caicedo
--- NOTE | 2020-02-27 12:46 | DI.CT.S_ITS ---
PROCEDURE: CT CERVICAL SPINE WO CON INDICATIONS: unwitnessed fall out of bed c/o of headache and neck pain TECHNIQUE: Noncontrast 3 mm thick sections acquired from the skull base to the T4 level. Sagittal and coronal reformats were then constructed. For radiation dose reduction, the following was used: automated exposure control, adjustment of mA and/or kV according to patient size. COMPARISON: [facility], CT, SOFT TISSUE NECK W CONTRAST, 11/06/2016, 10:37. [facility], CR, XR CHEST 1V, 02/27/2020, 13:15. [facility], CR, XR HIP W PEL IF DONE LT 2V, 02/27/2020, 13:15. [facility], CR, XR LUMBAR SPINE 2-3V, 02/27/2020, 13:15. [facility], CT, CT HEAD/BRAIN WO CON, 02/27/2020, 13:09. FINDINGS: Image quality: This examination is limited by involuntary motion artifact, particularly within the lower cervical spine. Bones: The limits of this study, with motion artifact, no acute fractures are seen. Stable mild anterior wedge deformity can be seen at C5. There is moderate to space narrowing seen at C5-C6. Milder degenerative changes are seen elsewhere. Visualized superior ribs are intact. Soft tissues: Prevertebral soft tissues are normal in thickness. No paravertebral hematomas. No apical pneumothoraces. Emphysematous changes are seen. Pacer leads are partially seen. A left subclavian stent is seen. Atherosclerotic calcification is noted. IMPRESSION: No definite, acute fractures are seen. However, there is motion artifact and evaluation of the lower cervical spine is limited. If there is point tenderness, then please consider a repeat examination, the patient is able to hold still. Remote, stable C5 anterior wedge deformity Incidental note is made of: Left subclavian stent Pacer leads Atherosclerotic calcification Emphysematous change Dictated by: Danis Morgan M.D. on 02/27/2020 at 13:02 Approved by: Danis Morgan M.D. on 02/27/2020 at 13:06
--- NOTE | 2020-02-27 12:46 | DI.CT.S_ITS ---
PROCEDURE: CT HEAD/BRAIN WO CON INDICATIONS: unwitnessed fall out of bed c/o of headache and neck pain TECHNIQUE: Noncontrast 4.5 mm thick angled axial sections acquired from the foramen magnum to the vertex, with coronal and sagittal reformats. For radiation dose reduction, the following was used: automated exposure control, adjustment of mA and/or kV according to patient size. COMPARISON: [facility], MR, BRAIN W&WO CONTRAST, 08/05/2015, 18:40. [facility], CR, XR HIP W PEL IF DONE LT 2V, 02/27/2020, 13:15. [facility], CR, XR LUMBAR SPINE 2-3V, 02/27/2020, 13:15. [facility], CT, CT CERVICAL SPINE WO CON, 02/27/2020, 13:09. [facility], CR, XR THORACIC SPINE 3V, 08/12/2018, 15:49. [facility], CT, HEAD WITHOUT CONTRAST, 06/12/2017, 14:34. FINDINGS: Image quality: This examination is limited by involuntary motion artifact. CSF spaces: Basal cisterns are patent. No extra-axial fluid collections. The ventricles are symmetric in size and shape. Brain: No intracranial bleeds or masses. There is cerebral volume loss for age, with resultant ventricular and sulcal prominence. There are periventricular and deep white matter chronic small vessel ischemic changes. There is intracranial internal carotid artery atherosclerosis. Skull and face: Calvarium and visualized facial bones appear intact, without suspicious lesions. Sinuses: Visualized sinuses and mastoids are clear. IMPRESSION: No acute intracranial hemorrhage is seen. No displaced calvarial fracture can be seen. Note is made of age-appropriate brain parenchymal volume loss and chronic small vessel ischemic changes. Dictated by: Danis Morgan M.D. on 02/27/2020 at 13:06 Approved by: Danis Morgan M.D. on 02/27/2020 at 13:08
--- NOTE | 2020-02-27 12:52 | DI.RAD.S_ITS ---
PROCEDURE: XR CHEST 1V INDICATIONS: unwitnessed fall, cough short of breath COPD, reported neg Covid TECHNIQUE: One view of the chest was acquired. COMPARISON: [facility], CT, CT CHEST W CON, 06/17/2018, 10:15. [facility], CR, XR THORACIC SPINE 3V, 08/12/2018, 15:49. [facility], CR, XR HIP W PEL IF DONE LT 2V, 02/27/2020, 13:15. [facility], CR, XR LUMBAR SPINE 2-3V, 02/27/2020, 13:15. [facility], CT, CT HEAD/BRAIN WO CON, 02/27/2020, 13:09. [facility], CT, CT CERVICAL SPINE WO CON, 02/27/2020, 13:09. [facility], CR, CHEST 1 VIEW, 11/07/2015, 9:46. FINDINGS: Surgical changes and devices: A pacer device is seen. The leads are seen in stable positions. Lungs and pleura: Diffuse interstitial prominence is seen, which is more prominent centrally. No focal infiltrates are seen. No pleural effusions or pneumothorax. Mediastinum: The cardiac contours are within normal limits. The aorta demonstrates calcification and tortuosity. Bones and chest wall: No suspicious bony lesions. Age-appropriate bony degenerative changes are seen. Overlying soft tissues appear unremarkable. IMPRESSION: Diffuse interstitial prominence, which is attributed to pulmonary edema. Postoperative and degenerative changes are seen. Dictated by: Danis Morgan M.D. on 02/27/2020 at 13:10 Approved by: Danis Morgan M.D. on 02/27/2020 at 13:11
--- NOTE | 2020-02-27 12:52 | DI.RAD.S_ITS ---
PROCEDURE: XR LUMBAR SPINE 2-3V INDICATIONS: unwitnessed fall low back pain TECHNIQUE: 2 views of the lumbar spine were acquired. COMPARISON: [facility], CT, CHEST/ABDOMEN WITH CONTRAST, 05/27/2017, 12:40. [facility], CR, XR HIP W PEL IF DONE LT 2V, 02/27/2020, 13:15. [facility], CR, XR CHEST 1V, 02/27/2020, 13:15. [facility], CT, CT HEAD/BRAIN WO CON, 02/27/2020, 13:09. [facility], CT, CT CERVICAL SPINE WO CON, 02/27/2020, 13:09. [facility], CR, L-SPINE 2-3 VIEWS, 04/18/2010, 11:54. FINDINGS: Bones: 5 nonrib-bearing, lumbar type vertebral bodies are seen. Mild levoconvex scoliotic curvature is noted. No focal AP alignment abnormality is seen. No acute fractures are seen. Moderate to severe disc space narrowing is seen at L4-L5 and L5-S1. The disc heights otherwise appear well-preserved. Lower lumbar spine facet arthropathy is seen. Soft tissues: Overlying bowel gas pattern is normal. No suspicious soft tissue calcifications. There is a left renal artery stent. Pacer leads are partially seen. IMPRESSION: Focal L4-L5 L5-S1 degenerative change, without acute fracture is seen on this study. If there is point tenderness (or other clinical suspicion for a fracture not seen on these images) then a dedicated CT could be considered for further evaluation, as clinically appropriate. Postoperative changes are seen. Dictated by: Danis Morgan M.D. on 02/27/2020 at 13:11 Approved by: Danis Morgan M.D. on 02/27/2020 at 13:15
[2020-02-27] MEDS: MORPHINE 4 MG/ML INJ IM (13:09)
--- NOTE | 2020-02-27 13:41 | PC.NURSE ---
slipped out of bed fell to the floor. Patient has no obvious deformity or rotation. Patient reports to this writter she spent the night on the floor that she called for family but no one helped her till 11ish this morning.Updated provider on event
[2020-02-27] MEDS: ALBUTEROL HFA 60 PUFF/8 GM INH INH (14:03)
[2020-02-27 14:07] LABS: Add Manual Diff / Slide Review NO; Basophils Absolute Auto 100 /uL (0-100); Eosinophils Absolute Auto 0 /uL (0-450); Eosinophils Percent Auto 0.1 % (2-4); Hematocrit 27.5 % (36-46); Lymphocytes Absolute Auto 900 /uL (1100-4500); Lymphocytes Percent Auto 7.2 % (25-40); Mean Corpuscular HGB Conc 32.6 % (30-36); Mean Corpuscular Hemoglobin 25.8 PG (26-34); Mean Corpuscular Volume 79.1 fL (80-100); Monocytes Absolute Auto 800 /uL (0-900); Neutrophils Absolute Auto 11000 /uL (1500-7000); Neutrophils Percent Auto 85.7 % (50-75); Platelet Count 168 X10^3/uL (150-400); Red Blood Cell Count 3.48 X10^6/uL (4.0-5.2); Red Cell Distribution Width 13.9 % (11.6-14.8); White Blood Cell Count 12.8 X10^3/uL (4.5-11.0)
[2020-02-27 14:17] LABS: Alanine Aminotransferase 21 IU/L (<35); Albumin 4.1 g/dL (3.5-5.0); Alkaline Phosphatase 87 U/L (38-126); Aspartate Aminotransferase 43 IU/L (14-36); BUN Creatinine Ratio 20.6 (6-22); Bilirubin Total 0.5 mg/dL (0.2-1.3); Blood Urea Nitrogen 14 mg/dL (7-17); Calcium 9.3 mg/dL (8.4-10.2); Carbon Dioxide 20 mmol/L (22-32); Chloride 106 mmol/L (98-107); Creatine Kinase 140 U/L (30-135); Estimated Glomerular Filt Rate > 60.0 mL/min (>60); Globulin 4.2 g/dL (1.7-4.1); Glucose 154 mg/dL (80-110); HEMOLYSIS 16 (0-50); Potassium 3.7 mmol/L (3.4-5.1); Sodium 137 mmol/L (137-145); Total Protein 8.3 g/dL (6.3-8.2)
[2020-02-27] MEDS: SODIUM CHLORIDE 0.9% 1,000 ML 1000 ML IV (14:20)
--- NOTE | 2020-02-27 14:34 | PC.NURSE ---
patient restless. Reports pain but denies need for more meds. Patient just wants to go home. Complaining of cramp in right leg.
[2020-02-27 15:34] LABS: NT-proBNP (BNP-Adult 18+) 6220 pg/mL (<450)
[2020-02-27] MEDS: MORPHINE 2 MG/ML INJ IV (15:34)
[2020-02-27 15:54] LABS: Creatine Kinase 137 U/L (30-135)
[2020-02-27] MEDS: ALBUTEROL/IPRATROPIUM 3 ML AMPUL INH (16:01)
[2020-02-27 16:07] LABS: Troponin I 0.022 ng/mL (0.01-0.034)
[2020-02-27 16:09] LABS: CKMB % Relative Index 2.8 % (1.5-5.0); Creatine Kinase MB 3.87 ng/mL (<2.37)
[2020-02-27 16:24] LABS: HCO3 ABG 17 mmol/L (22-26); PCO2 ABG 29.4 mmHg (35-45); PO2 ABG 47 mmHg (80-100); pH ABG 7.37 (7.35-7.45)
[2020-02-27 16:25] LABS: Fractionated Inspired Oxygen 21; Oxygen Saturation ABG 83 % (95-100); TCO2 ABG 18 mmol/L (21-31)
[2020-02-27] MEDS: HALOPERIDOL 5 MG/ML VIAL 1 MG IV (16:27)
[2020-02-27] MEDS: FUROSEMIDE 20 MG/2 ML VIAL IV (17:18)
[2020-02-27 19:32] LABS: Bacteria Urine None Seen; RBC Urine None Seen (0-5/HPF)
[2020-02-27 19:33] LABS: Appearance Urine UA CLEAR; Bilirubin Urine UA NEGATIVE (NEGATIVE); Color Urine UA YELLOW; Glucose Urine UA NEGATIVE (Negative); Ketones Urine UA NEGATIVE (NEGATIVE); Leukocyte Esterase Urine UA NEGATIVE (NEGATIVE); Nitrite Urine UA NEGATIVE (Negative); Occult Blood Urine UA NEGATIVE (Negative); Protein Urine UA 1+ (Negative); Urobilinogen Urine UA 0.2 E.U./dL (0.2)
[2020-02-27 19:37] LABS: pH Urine UA 5.5 (4.5-8.0)
[2020-02-27 19:39] LABS: Amorphous Sediment Urine 1+; Culture Indicated Urine Cult Not Indicated; Mucus Urine 1+ (Negative); Squamous Epithelial Cell Urine 0-1 /HPF (0-5/HPF); WBC Urine 0-1/HPF (0-5/HPF)
[2020-02-27] MEDS: ACETAMINOPHEN 325 MG TABLET 975 MG PO (20:18)
[2020-02-27 20:40] LABS: Magnesium 1.7 mg/dL (1.6-2.3)
--- NOTE | 2020-02-27 20:45 | PM.HP.1 ---
History of Present Illness History of Present Illness Date Patient Seen: 02/27/20 Time Patient Seen: 20:05 Chief complaint: fell out of bed, left leg/hip/groin pain Narrative: Ms. Zamzam Randall is a 79-year-old female with an extensive medical history including coronary artery disease with a previous diagnosis of atrial fibrillation and status post permanent pacemaker insertion, peripheral vascular disease, COPD, hypertension, hyperlipidemia, obstructive sleep apnea, renal artery stenosis history of left lower squamous cell lung cancer status post chemotherapy and radiation in remission, neuropathy, GERD and migraines with a history of DVT 25 years ago who presents to the ER after being found down by family this morning. The patient presents to the ER with a chief complaint of left groin pain. The patient is a poor historian providing conflicting information stating she had fallen out of her bed to the floor but was able to get back into bed. The family states they found the patient on the floor. Timing of the fall is unclear with family reporting the fall was last night and the patient stating her fall was 2 days ago. Patient has associated complaints of headache and neck pain. She is incapable of providing subjective information is she is restless and agitated at time of admission. According to subjective evaluation completed in the ER the patient has had sweats but no fevers or chills gas with complaining of headache but denies nasal congestion or sore throat. She denied chest pain or palpitations has had a dry cough that is described as deep and rattling. The patient was seen by her primary care [phone] having had 1 and half weeks of worsening shortness of breath, subjective fevers and cough and was started on 1 week course of Levaquin. The patient has had no complaints of nausea or vomiting, no abdominal pain, diarrhea constipation no urinary symptoms. Upon arrival to the ER the patient is afebrile with a temperature 98.4? with heart rate of 82, blood pressure of 125/66, respirations 14 saturating 98% on room air. A chest x-ray is obtained which finds diffuse interstitial prominence believed to be pulmonary edema, images consistent with COPD with normal heart size, dual lead permanent pacemaker. An x-ray of the left hip finds an impacted subcapital femoral neck fracture that is minimally displaced. Imaging of the C-spine finds no acute injury and L-spine identifies levoscoliosis with L from 4-5-S1 degenerative joint disease without acute injury. CT of the head finds no acute intracranial processes, chronic periventricular and deep white matter at small-vessel ischemic changes. On laboratory analysis the patient has elevated white count at 12.8, hemoglobin of 9.0 and hematocrit of 27.5 and platelets of 168. Her electrolytes are within normal range and has a BUN of 14 and creatinine is 0.68. Her nonfasting glucose is 154. She has a total bilirubin of 0.5, AST of 43, ALT of 21 alkaline phosphatase of 87. She has a total CK of 137 with an MB of 3.87 and index of 2.8%. Her troponin is 0.22 with a BNP of 6220. ABGs obtained finding a pH of 7.37, pCO2 of 29.4, PO2 of 47 and bicarb of 17 with a base excess of -8 saturation is 83%. Dr. Hinton was consulted through the ER for evaluation hip fracture in has agreed to consult. In the ER the patient received albuterol MDI and nebulizer treatments, Lasix 20 mg IV and morphine for pain. The patient had increased agitation following morphine administration and was given Haldol. The patient is admitted to the medicine service for ground level fall resulting in left hip fracture. Patient History Medical History (Updated 02/27/20 @ 21:16 by ANUP Randall) Anxiety (Chronic) Chronic viral hepatitis, unspecified (Chronic Unknown) COPD (chronic obstructive pulmonary disease) (Chronic Unknown) Coronary artery disease involving [place] coronary artery of [place] heart without angina pectoris (10/20/15) Decreased platelet count (Acute) Degenerative joint disease involving multiple joints (Chronic Unknown) Elevated liver enzymes (Acute) Essential hypertension (10/20/15) Essential tremor (11/29/16) Fatigue (Chronic) Fibromyalgia (Chronic Unknown) GERD (gastroesophageal reflux disease) (Chronic Unknown) Low back pain (Chronic) Malignant neoplasm of lower lobe of left lung (10/20/15) Migraines (Chronic Unknown) Mixed hyperlipidemia (10/20/15) Muscle spasm of both lower legs (Acute) Peripheral neuropathy (Chronic Unknown) Renal artery stenosis (Chronic Unknown) Sleep apnea (Chronic Unknown) Thoracic back pain (Chronic) Tobacco abuse (Acute) Vascular insufficiency (Chronic Unknown) Surgical History (Updated 02/27/20 @ 21:24 by ANUP Randall) History of bilateral carotid endarterectomy (Acute) History of cataract surgery (Acute) History of intravascular stent placement (Acute) History of permanent cardiac pacemaker placement (Resolved 10/2017) History of stent insertion of renal artery (Acute) Hx of appendectomy (Resolved Unknown) Hx of hysterectomy (Resolved Unknown) Hx of tonsillectomy (Resolved Unknown) Family & Social History Family History Father Cancer Family history unavailable: Yes (History unavailable due to cognitive impairment) Social History: household members children Prior Living Arrangements Mobile home Safety & Behavioral: Feels Safe in Current Yes Environment Suicidal Ideation Description None Suicide Plan Description No Plan Tobacco & Substance use: Smoking Status Current every day smoker Smoking packs per day 0.5 alcohol intake never Comment: The patient lives in a single family home with her children. Family history is unavailable due to patient cognitive impairment. Social history is obtained through the medical record validated on visit with primary care provider 1 week ago. Smoking: Patient smokes 1/2 pack per day Alcohol: Patient does not consume alcohol Substance use: The patient has used marijuana, unknown last use. Advanced directives: There are no advanced directives in the medical record. At present the patient does not have capacity to determine code status and therefore will default to FULL CODE until such time this committee verified. Per phone call with family Bernarda Parmar, the patient's daughter, is the patient's surrogate decision maker. Meds Home Medications and Allergies Home Medications Medication Instructions Recorded Confirmed Type carvedilol [Coreg] 12.5 mg PO BID #180 tab 08/13/17 02/19/20 Rx aspirin 81 mg tablet,delayed 81 mg PO BID tab 03/03/19 02/19/20 History release lisinopril 2.5 mg tablet 2.5 mg PO DAILY #0 tab 03/03/19 02/19/20 History omeprazole 20 mg capsule,delayed 20 mg PO QDAY #90 cap 09/29/19 02/19/20 Rx release primidone 50 mg tablet 50 mg PO Q DAY #90 tab 12/17/19 02/19/20 Rx multivitamin 1 tab PO DAILY 12/30/19 02/19/20 History albuterol sulfate 90 mcg/actuation 2 inhalation INHALATION Q4-6H PRN 02/19/20 02/19/20 Rx aerosol inhaler #8 gram atorvastatin 40 mg PO BEDTIME 02/27/20 02/27/20 History Allergies Allergy/AdvReac Type Severity Reaction Status Date / Time Penicillins [PENICILLINS] Allergy Severe RASH, SOB Verified 02/19/20 08:55 Sulfa (Sulfonamide Allergy Severe SOB Verified 02/19/20 08:55 Antibiotics) [SULFA (SULFONAMIDE ANTIBIOTICS)] Review of Systems Review of Systems Narrative: Patient is confused and agitated and unable to participate in a review of systems. Notation is made of review of systems obtained by the ER provider upon patient arrival, prior to admission. ROS: Yes unobtainable due to mental status Exam Vital Signs (past 8 hours): - 02/27/20 14:04 02/27/20 15:30 02/27/20 16:01 Temperature Pulse Rate 82 80 89 Respiratory Rate 14 28 H 22 Blood Pressure Blood Pressure [Left Arm] 100/67 Pulse Oximetry 93 91 02/27/20 16:25 02/27/20 16:30 02/27/20 17:52 Temperature 99.1 F Pulse Rate 75 66 91 H Respiratory Rate 20 18 Blood Pressure 106/50 L Blood Pressure [Left Arm] 115/67 Pulse Oximetry 93 94 97 02/27/20 19:29 Temperature Pulse Rate Respiratory Rate Blood Pressure Blood Pressure [Left Arm] Pulse Oximetry 96 Oxygen Delivery Method Nasal Cannula Oxygen Flow Rate 2 Narrative Exam Narrative: GENERAL APPEARANCE: well developed, restless and agitated chronically ill-appearing elderly female. HEENT: Atraumatic, PERRLA, conjunctiva clear, EOMs intact without nystagmus, no sinus tenderness to percussion, no rhinorrhea, mucous membranes are moist and pink without lesions or exudate. NECK/THYROID: Full ROM, no step-offs, no JVD, no thyromegaly, trachea midline. LYMPH NODES: no cervical or supraclavicular lymphadenopathy. SKIN: [place], warm and dry, no visible ecchymosis, vascular insufficiency skin changes bilateral lower extremities. HEART: regular rate and rhythm, S1-S2, no murmur appreciated, delayed capillary refill bilateral toes at 3-4 seconds. LUNGS: Coarse bilaterally bilaterally, no wheezing, no cough present. CHEST: Symmetrical movement, no accessory muscle use, good tidal volume. ABDOMEN: Soft, no distention, no abdominal tenderness, no organomegaly, no flank or suprapubic tenderness, Griffin catheter in place, active bowel tones. EXTREMITIES: moves all extremities, pain left groin and hip. NEUROLOGIC: AAO to person confused as to place and situation, GCS 13-14 will inconsistently follow directions, no lateralizing findings. PSYCH: Patient is agitated post morphine, impaired cognition, intermittently cooperative. Objective Labs Result Diagrams: 02/27/20 13:57 02/27/20 13:57 Labs: Laboratory Results - last 24 hr 02/27/20 02/27/20 02/27/20 13:57 13:57 13:57 WBC 12.8 H RBC 3.48 L Hgb 9.0 L Hct 27.5 L MCV 79.1 L MCH 25.8 L MCHC 32.6 RDW 13.9 Plt Count 168 Neut % (Auto) 85.7 H Lymph % (Auto) 7.2 L [place] % (Auto) 6.0 Eos % (Auto) 0.1 L Baso % (Auto) 1.0 Neut # (Auto) 35932 H Lymph # (Auto) 900 L [place] # (Auto) 800 Eos # (Auto) 0 Baso # (Auto) 100 ABG pH ABG pCO2 ABG pO2 ABG HCO3 ABG Total CO2 ABG O2 Saturation ABG Base Excess FiO2 Sodium 137 Potassium 3.7 Chloride 106 Carbon Dioxide 20 L BUN 14 Creatinine 0.68 Estimated GFR > 60.0 BUN/Creatinine Ratio 20.6 Glucose 154 H Calcium 9.3 Magnesium Total Bilirubin 0.5 AST 43 H ALT 21 Alkaline Phosphatase 87 Total Creatine Kinase 140 H CK-MB (CK-2) CK-MB (CK-2) Rel Index Troponin I NT-Pro-B Natriuret Pep 6220 H Total Protein 8.3 H Albumin 4.1 Globulin 4.2 H Albumin/Globulin Ratio 1.0 Urine Color Urine Appearance Urine pH Ur Specific [place] Urine Protein Urine Glucose (UA) Urine Ketones Urine Occult Blood Urine Nitrate Urine Bilirubin Urine Urobilinogen Ur Leukocyte Esterase Urine RBC Urine WBC Ur Squamous Epith Cells Amorphous Sediment Urine Bacteria Urine Mucus Ur Culture Indicated? 02/27/20 02/27/20 02/27/20 13:57 13:57 16:11 WBC RBC Hgb Hct MCV MCH MCHC RDW Plt Count Neut % (Auto) Lymph % (Auto) [place] % (Auto) Eos % (Auto) Baso % (Auto) Neut # (Auto) Lymph # (Auto) [place] # (Auto) Eos # (Auto) Baso # (Auto) ABG pH 7.37 ABG pCO2 29.4 L ABG pO2 47 L* ABG HCO3 17 L ABG Total CO2 18 L ABG O2 Saturation 83 L* ABG Base Excess -8.0 L FiO2 21 Sodium Potassium Chloride Carbon Dioxide BUN Creatinine Estimated GFR BUN/Creatinine Ratio Glucose Calcium Magnesium 1.7 Total Bilirubin AST ALT Alkaline Phosphatase Total Creatine Kinase 137 H CK-MB (CK-2) 3.87 H CK-MB (CK-2) Rel Index 2.8 Troponin I 0.022 NT-Pro-B Natriuret Pep Total Protein Albumin Globulin Albumin/Globulin Ratio Urine Color Urine Appearance Urine pH Ur Specific [place] Urine Protein Urine Glucose (UA) Urine Ketones Urine Occult Blood Urine Nitrate Urine Bilirubin Urine Urobilinogen Ur Leukocyte Esterase Urine RBC Urine WBC Ur Squamous Epith Cells Amorphous Sediment Urine Bacteria Urine Mucus Ur Culture Indicated? 02/27/20 19:31 WBC RBC Hgb Hct MCV MCH MCHC RDW Plt Count Neut % (Auto) Lymph % (Auto) [place] % (Auto) Eos % (Auto) Baso % (Auto) Neut # (Auto) Lymph # (Auto) [place] # (Auto) Eos # (Auto) Baso # (Auto) ABG pH ABG pCO2 ABG pO2 ABG HCO3 ABG Total CO2 ABG O2 Saturation ABG Base Excess FiO2 Sodium Potassium Chloride Carbon Dioxide BUN Creatinine Estimated GFR BUN/Creatinine Ratio Glucose Calcium Magnesium Total Bilirubin AST ALT Alkaline Phosphatase Total Creatine Kinase CK-MB (CK-2) CK-MB (CK-2) Rel Index Troponin I NT-Pro-B Natriuret Pep Total Protein Albumin Globulin Albumin/Globulin Ratio Urine Color Yellow Urine Appearance Clear Urine pH 5.5 Ur Specific [place] 1.020 Urine Protein 1+ H Urine Glucose (UA) Negative Urine Ketones Negative Urine Occult Blood Negative Urine Nitrate Negative Urine Bilirubin Negative Urine Urobilinogen 0.2 Ur Leukocyte Esterase Negative Urine RBC None seen Urine WBC 0-1/hpf Ur Squamous Epith Cells 0-1 /hpf Amorphous Sediment 1+ Urine Bacteria None seen Urine Mucus 1+ H Ur Culture Indicated? Cult not indicated Assessment & Plan Assessment & Plan narrative: 1. Acute left subcapital femoral neck fracture, present on admission, active -Patient sustained a ground level fall from her bed to the floor and per best reports last night and has been nonambulatory with chief complaint of left groin pain. -Left hip x-ray identifies mildly displaced impacted subcapital femoral neck fracture. -Dr. Hinton was contacted through the emergency department has agreed to consult, we appreciate Dr. Hinton's evaluation and recommendations. -Patient will be NPO at midnight pending possible surgery in the morning. -Ordered Tylenol 975 mg every 8 hours for pain -Patient had an inducing carotic response with agitation to morphine, ordered tramadol 100 mg x 1 and will assess efficacy. 2. Acute on chronic respiratory failure with hypoxemia, COPD, bronchitis, present on admission, active -History of left lower lobe squamous cell lung cancer treated with chemotherapy and radiation in 2014, presently in remission followed by oncology. -Present smoker 1/2 pack per day. Chest x-ray consistent with COPD with radiology interpretation of diffuse interstitial prominence lead to be pulmonary edema. -Arterial blood gas finds a pH of 7.37, pCO2 29.4, PO2 low at 47, bicarbonate at 17, base excess of -8 with oxygen saturation of 83%. 3. Coronary artery disease, history of atrial fibrillation probable paroxysmal in nature, presently in sinus rhythm, active. -Patient has not complained of chest pain but has chronic shortness of breath and treated for pneumonia with Levaquin by her primary care provider. -Twelve lead EKG finds sinus rhythm with a ventricular rate of 90 with a sinus arrhythmia without ventricular ectopy, with inverted T-waves laterally and inferior Q-waves. -Total CK is 137, MB is 3.87, index is 2.8, troponin is 0.22. BNP of 6220. Prior echocardiogram from 07/2017 10 if eyes and EF of 70 75%, LV is hyperdynamic with mild concentric left find sure killer hypertrophy, right ventricle is described as normal in function and size. -Continue home regimen of aspirin 81 mg twice daily, carvedilol 12.5 mg twice daily and lisinopril 2.5 mg daily. -will recheck troponin at 10:00 p.m. -patient will remain on cardiac telemetry. 4. Peripheral vascular disease, present on admission, stable. -Patient with decreased capillary refill at 3-4 seconds bilateral feet, vascular insufficiency skin changes bilateral lower extremities, history renal and subclavian stents. -Continue home regimen lisinopril and monitor condition. 5. History of hepatitis C, stable -History of hepatitis C exposure, on 12/30/2019 HCV antibody was reactive at 28.9 (cut off 1.0). No evidence of hepatomegaly and she does not consume alcohol. -Patient has a bilirubin of 0.5, AST minimally elevated at 43, ALT of 21 and alkaline phosphatase of 87, albumin is 4.1 and platelets are 186. 6. Essential hypertension, present on admission stable. -Continue home regimen of aspirin 81 mg twice daily, carvedilol 12.5 mg twice daily and lisinopril 2.5 mg daily. 7. Hyperlipidemia, present on admission, stable. Continue home regimen of atorvastatin 40 mg daily. VTE prophylaxis: SCDs, chemical prophylaxis contraindicated with planned surgery, aspirin 81 mg twice daily. IV fluid: Lactated Ringer's 75 cc/hour Diet: NPO except meds. Code status: Patient is presently FULL CODE. Patient is unable to confirm status will require clarification. Patient is admitted to the hospital for acute on chronic shortness of breath with a closed left hip fracture and planned surgical intervention. The patient is admitted as an inpatient with expected length of stay to be greater than 2 midnights. Scores GCS [place] coma scale eye opening: Spontaneous [place] coma scale verbal response: Confused [place] coma scale motor response: Obey commands [place] coma scale total score: 14
[2020-02-27] MEDS: LACTATED RINGERS 1,000 ML 50 ML IV (21:13)
[2020-02-27] MEDS: TRAMADOL 50 MG TABLET 100 MG PO (21:56)
--- NOTE | 2020-02-27 23:23 | PC.NURSE ---
Upon arrival pt was drowsy. pt kept falling asleep while I was asking her questions. later on pt started to become more restless due to pain. tylenol given per orders. LS: ronchi and expiratory wheezes. cont pulse ox. 1.5L 95%. pt's bladder scan was 725cc. pt unable to void. notified , VTO to place lin. bed rest. pt ate some pudding then went back to sleep. NPO at midnight. IVF. call light in reach. bed alarm active. frequent checks. pt occasionally tries to get out of bed.
[2020-02-27 23:37] LABS: Troponin I 0.246 ng/mL (0.01-0.034)
[2020-02-27 23:38] LABS: Adenovirus Not Detected (Not Detect)
[2020-02-27 23:39] LABS: Bordetella pertussis Not Detected (Not Detect); Chlamydophila pneumoniae Not Detected (Not Detect); Coronavirus 229E Not Detected (Not Detect); Coronavirus HKU1 Not Detected (Not Detect); Coronavirus NL 63 Not Detected (Not Detect); Coronavirus OC43 Not Detected (Not Detect); Human Metapneumovirus Not Detected (Not Detect); Human Rhinovirus/Enterovirus Not Detected (Not Detect); Influenza A Not Detected (Not Detect); Influenza B Not Detected (Not Detect); Mycoplasma pneumoniae Not Detected (Not Detect); Parainfluenza Virus 1 Not Detected (Not Detect); Parainfluenza Virus 2 Not Detected (Not Detect); Parainfluenza Virus 3 Not Detected (Not Detect); Parainfluenza Virus 4 Not Detected (Not Detect); Respiratory Syncytial Virus Not Detected (Not Detect)
[2020-02-28] VITALS (31 sets, daily range): BP systolic 70–167; BP diastolic 36–99; PULSE 73–91; RESP 10–20; TEMP 36.1–37.2; O2SAT 86–99; BMI 22.6
--- NOTE | 2020-02-28 | DI.RAD.S_ITS ---
PROCEDURE: XR HIP W PEL IF DONE LT 2V INDICATIONS: LEFT HIP CANULATED SCREWS TECHNIQUE: Fluoroscopic images were obtained during an operative procedure and submitted for interpretation following the completion of the procedure. COMPARISON: [facility], , XR HIP W PEL IF DONE LT 2V, 02/27/2020, 13:15. FINDINGS: These fluoroscopic images were performed for intraoperative localization. On these images, 3 screws are seen through the left femoral neck. Please correlate with intraoperative findings. IMPRESSION: Normal intraoperative examination. Dictated by: Danis Morgan M.D. on 02/28/2020 at 14:18 Approved by: Danis Morgan M.D. on 02/28/2020 at 14:19
--- NOTE | 2020-02-28 | DI.RAD.S_ITS ---
PROCEDURE: XR CHEST 1V INDICATIONS: increasing O2 requirements, hypotension, assess fluid status TECHNIQUE: One view of the chest was acquired. COMPARISON: [facility], CT, CHEST/ABDOMEN WITH CONTRAST, 02/15/2016, 9:57. [facility], CT, CT CHEST W CON, 06/17/2018, 10:15. [facility], CR, XR CHEST 1V, 02/27/2020, 13:15. FINDINGS: Surgical changes and devices: A pacer device is seen. The leads are seen in stable positions. 2 great vessel stents are seen. There is also a left renal artery stent. Lungs and pleura: Interstitial prominence is seen, which is improved compared to the prior examination. Right perihilar fullness is seen. On this semiupright portable chest examination, no large pneumothorax or large pleural effusions are seen. No focal infiltrates are seen. Mediastinum: The cardiac contours are within normal limits. The aorta demonstrates calcification and tortuosity. Bones and chest wall: No suspicious bony lesions. Age-appropriate bony degenerative changes are seen. Mitral valve annulus calcification can be seen. IMPRESSION: Improved interstitial prominence. Dictated by: Danis Morgan M.D. on 02/28/2020 at 10:06 Approved by: Danis Morgan M.D. on 02/28/2020 at 10:10
[2020-02-28] MEDS: NITROGLYCERIN OINT 1 INCH/GM OINT...G. 0.5 INCH TOP (00:41)
[2020-02-28] MEDS: TRAMADOL 50 MG TABLET 100 MG PO ×3 (01:54→21:15)
[2020-02-28] MEDS: ACETAMINOPHEN 325 MG TABLET 975 MG PO (05:25)
[2020-02-28 06:42] LABS: Add Manual Diff / Slide Review NO; Basophils Absolute Auto 100 /uL (0-100); Basophils Percent Auto 0.8 % (0-2); Eosinophils Absolute Auto 0 /uL (0-450); Eosinophils Percent Auto 0.6 % (2-4); Hematocrit 24.9 % (36-46); Hemoglobin 8.2 g/dL (12.0-16.0); INR 1.1 (0.9-1.3); Lymphocytes Absolute Auto 1200 /uL (1100-4500); Lymphocytes Percent Auto 15.4 % (25-40); Mean Corpuscular HGB Conc 33.1 % (30-36); Mean Corpuscular Hemoglobin 26.3 PG (26-34); Mean Corpuscular Volume 79.4 fL (80-100); Monocytes Absolute Auto 1000 /uL (0-900); Monocytes Percent Auto 12.2 % (3-14); Neutrophils Absolute Auto 5800 /uL (1500-7000); Platelet Count 141 X10^3/uL (150-400); Prothrombin Time 12.7 SECONDS (10.1-12.7); Red Blood Cell Count 3.13 X10^6/uL (4.0-5.2); Red Cell Distribution Width 13.9 % (11.6-14.8); White Blood Cell Count 8.1 X10^3/uL (4.5-11.0)
[2020-02-28 06:45] LABS: PTT Partial Thromboplastin Tim 32 SECONDS (26.4-36.2)
[2020-02-28 06:52] LABS: BUN Creatinine Ratio 21.9 (6-22); Blood Urea Nitrogen 21 mg/dL (7-17); Calcium 8.8 mg/dL (8.4-10.2); Carbon Dioxide 24 mmol/L (22-32); Chloride 104 mmol/L (98-107); Estimated Glomerular Filt Rate 56.2 mL/min (>60); Glucose 113 mg/dL (80-110); HEMOLYSIS < 15 (0-50); Potassium 3.5 mmol/L (3.4-5.1); Sodium 135 mmol/L (137-145)
[2020-02-28 07:01] LABS: Troponin I 0.255 ng/mL (0.01-0.034)
[2020-02-28] MEDS: LACTATED RINGERS 1,000 ML 100 ML IV (08:24)
[2020-02-28] MEDS: PANTOPRAZOLE 40 MG VIAL IV (09:10)
--- NOTE | 2020-02-28 10:04 | PM.HP.1 ---
History of Present Illness History of Present Illness Date Patient Seen: 02/28/20 Time Patient Seen: 10:05 Date of Onset of Symptoms: 02/27/20 Chief complaint: fell out of bed, left leg/hip/groin pain Narrative: 79-year-old female status post fall out of bed with complaints of left hip and lower extremity pain. Seen and evaluated emergency room and noted to have an impacted subcapital femoral neck fracture. Patient has history of low-grade GI bleed and pacemaker. Current the being assessed by the hospitalist due to concerns about GI bleed and cardiac issues. Patient in moderate pain due to left hip injury. Patient History Medical History (Updated 02/27/20 @ 21:16 by ANUP Randall) Anxiety (Chronic) Chronic viral hepatitis, unspecified (Chronic Unknown) COPD (chronic obstructive pulmonary disease) (Chronic Unknown) Coronary artery disease involving [place] coronary artery of [place] heart without angina pectoris (10/20/15) Decreased platelet count (Acute) Degenerative joint disease involving multiple joints (Chronic Unknown) Elevated liver enzymes (Acute) Essential hypertension (10/20/15) Essential tremor (11/29/16) Fatigue (Chronic) Fibromyalgia (Chronic Unknown) GERD (gastroesophageal reflux disease) (Chronic Unknown) Low back pain (Chronic) Malignant neoplasm of lower lobe of left lung (10/20/15) Migraines (Chronic Unknown) Mixed hyperlipidemia (10/20/15) Muscle spasm of both lower legs (Acute) Peripheral neuropathy (Chronic Unknown) Renal artery stenosis (Chronic Unknown) Sleep apnea (Chronic Unknown) Thoracic back pain (Chronic) Tobacco abuse (Acute) Vascular insufficiency (Chronic Unknown) Surgical History (Updated 02/27/20 @ 21:24 by ANUP Randall) History of bilateral carotid endarterectomy (Acute) History of cataract surgery (Acute) History of intravascular stent placement (Acute) History of permanent cardiac pacemaker placement (Resolved 10/2017) History of stent insertion of renal artery (Acute) Hx of appendectomy (Resolved Unknown) Hx of hysterectomy (Resolved Unknown) Hx of tonsillectomy (Resolved Unknown) Family & Social History Family History Father Cancer Social History: Family history unavailable Yes: History unavailable due to cognitive impairment household members children Prior Living Arrangements Mobile home Safety & Behavioral: Feels Safe in Current Yes Environment Suicidal Ideation Description None Suicide Plan Description No Plan Tobacco & Substance use: Smoking Status Current every day smoker Smoking packs per day 0.5 alcohol intake never Meds Home Medications and Allergies Home Medications Medication Instructions Recorded Confirmed Type carvedilol [Coreg] 12.5 mg PO BID #180 tab 08/13/17 02/19/20 Rx aspirin 81 mg tablet,delayed 81 mg PO BID tab 03/03/19 02/19/20 History release lisinopril 2.5 mg tablet 2.5 mg PO DAILY #0 tab 03/03/19 02/19/20 History omeprazole 20 mg capsule,delayed 20 mg PO QDAY #90 cap 09/29/19 02/19/20 Rx release primidone 50 mg tablet 50 mg PO Q DAY #90 tab 12/17/19 02/19/20 Rx multivitamin 1 tab PO DAILY 12/30/19 02/19/20 History albuterol sulfate 90 mcg/actuation 2 inhalation INHALATION Q4-6H PRN 02/19/20 02/19/20 Rx aerosol inhaler #8 gram atorvastatin 40 mg PO BEDTIME 02/27/20 02/27/20 History Allergies Allergy/AdvReac Type Severity Reaction Status Date / Time Penicillins [PENICILLINS] Allergy Severe RASH, SOB Verified 02/19/20 08:55 Sulfa (Sulfonamide Allergy Severe SOB Verified 02/19/20 08:55 Antibiotics) [SULFA (SULFONAMIDE ANTIBIOTICS)] Review of Systems Review of Systems Narrative: Elderly appearing female in hospital bed in obvious distress due to left hip pain. Vital signs stable, afebrile, patient is awake and alert and oriented and moderately conversant although interrupted by spasms of pain. HEENT normocephalic atraumatic lungs clear to auscultation heart regular rate rhythm abdomen benign extremities benign but there is significant pain with any movement of the left lower extremity neurovascular examination is grossly intact. Exam Vital Signs (past 8 hours): - 02/28/20 05:38 02/28/20 08:06 02/28/20 08:59 Temperature 97.6 F Pulse Rate 76 82 Respiratory Rate 16 Blood Pressure 126/71 112/64 Pulse Oximetry 99 96 94 Oxygen Delivery Method Nasal Cannula Oxygen Flow Rate 1 Objective Labs Result Diagrams: 02/28/20 06:15 02/28/20 06:15 Labs: Laboratory Results - last 24 hr 02/27/20 02/27/20 02/27/20 13:57 13:57 13:57 WBC 12.8 H RBC 3.48 L Hgb 9.0 L Hct 27.5 L MCV 79.1 L MCH 25.8 L MCHC 32.6 RDW 13.9 Plt Count 168 Neut % (Auto) 85.7 H Lymph % (Auto) 7.2 L [place] % (Auto) 6.0 Eos % (Auto) 0.1 L Baso % (Auto) 1.0 Neut # (Auto) 47224 H Lymph # (Auto) 900 L [place] # (Auto) 800 Eos # (Auto) 0 Baso # (Auto) 100 PT INR APTT ABG pH ABG pCO2 ABG pO2 ABG HCO3 ABG Total CO2 ABG O2 Saturation ABG Base Excess FiO2 Sodium 137 Potassium 3.7 Chloride 106 Carbon Dioxide 20 L BUN 14 Creatinine 0.68 Estimated GFR > 60.0 BUN/Creatinine Ratio 20.6 Glucose 154 H Calcium 9.3 Magnesium Total Bilirubin 0.5 AST 43 H ALT 21 Alkaline Phosphatase 87 Total Creatine Kinase 140 H CK-MB (CK-2) CK-MB (CK-2) Rel Index Troponin I NT-Pro-B Natriuret Pep 6220 H Total Protein 8.3 H Albumin 4.1 Globulin 4.2 H Albumin/Globulin Ratio 1.0 Urine Color Urine Appearance Urine pH Ur Specific [place] Urine Protein Urine Glucose (UA) Urine Ketones Urine Occult Blood Urine Nitrate Urine Bilirubin Urine Urobilinogen Ur Leukocyte Esterase Urine RBC Urine WBC Ur Squamous Epith Cells Amorphous Sediment Urine Bacteria Urine Mucus Ur Culture Indicated? Chlamy pneumoniae PCR Adenovirus (PCR) B.parapertussis DNA PCR Coronavirus OC43 (PCR) Coronavirus HKU1 (PCR) Coronavirus 229E (PCR) Coronavirus NL63 (PCR) Human Metapneumovir PCR Influenza Type A (PCR) Influenza Type B (PCR) M. pneumoniae (PCR) Parainfluenza 1 (PCR) Parainfluenza 2 (PCR) Parainfluenza 3 (PCR) Parainfluenza 4 (PCR) RSV (PCR) Entero/Rhino (PCR) 02/27/20 02/27/20 02/27/20 13:57 13:57 16:11 WBC RBC Hgb Hct MCV MCH MCHC RDW Plt Count Neut % (Auto) Lymph % (Auto) [place] % (Auto) Eos % (Auto) Baso % (Auto) Neut # (Auto) Lymph # (Auto) [place] # (Auto) Eos # (Auto) Baso # (Auto) PT INR APTT ABG pH 7.37 ABG pCO2 29.4 L ABG pO2 47 L* ABG HCO3 17 L ABG Total CO2 18 L ABG O2 Saturation 83 L* ABG Base Excess -8.0 L FiO2 21 Sodium Potassium Chloride Carbon Dioxide BUN Creatinine Estimated GFR BUN/Creatinine Ratio Glucose Calcium Magnesium 1.7 Total Bilirubin AST ALT Alkaline Phosphatase Total Creatine Kinase 137 H CK-MB (CK-2) 3.87 H CK-MB (CK-2) Rel Index 2.8 Troponin I 0.022 NT-Pro-B Natriuret Pep Total Protein Albumin Globulin Albumin/Globulin Ratio Urine Color Urine Appearance Urine pH Ur Specific [place] Urine Protein Urine Glucose (UA) Urine Ketones Urine Occult Blood Urine Nitrate Urine Bilirubin Urine Urobilinogen Ur Leukocyte Esterase Urine RBC Urine WBC Ur Squamous Epith Cells Amorphous Sediment Urine Bacteria Urine Mucus Ur Culture Indicated? Chlamy pneumoniae PCR Adenovirus (PCR) B.parapertussis DNA PCR Coronavirus OC43 (PCR) Coronavirus HKU1 (PCR) Coronavirus 229E (PCR) Coronavirus NL63 (PCR) Human Metapneumovir PCR Influenza Type A (PCR) Influenza Type B (PCR) M. pneumoniae (PCR) Parainfluenza 1 (PCR) Parainfluenza 2 (PCR) Parainfluenza 3 (PCR) Parainfluenza 4 (PCR) RSV (PCR) Entero/Rhino (PCR) 02/27/20 02/27/20 02/27/20 19:31 21:59 22:25 WBC RBC Hgb Hct MCV MCH MCHC RDW Plt Count Neut % (Auto) Lymph % (Auto) [place] % (Auto) Eos % (Auto) Baso % (Auto) Neut # (Auto) Lymph # (Auto) [place] # (Auto) Eos # (Auto) Baso # (Auto) PT INR APTT ABG pH ABG pCO2 ABG pO2 ABG HCO3 ABG Total CO2 ABG O2 Saturation ABG Base Excess FiO2 Sodium Potassium Chloride Carbon Dioxide BUN Creatinine Estimated GFR BUN/Creatinine Ratio Glucose Calcium Magnesium Total Bilirubin AST ALT Alkaline Phosphatase Total Creatine Kinase CK-MB (CK-2) CK-MB (CK-2) Rel Index Troponin I 0.246 H* NT-Pro-B Natriuret Pep Total Protein Albumin Globulin Albumin/Globulin Ratio Urine Color Yellow Urine Appearance Clear Urine pH 5.5 Ur Specific [place] 1.020 Urine Protein 1+ H Urine Glucose (UA) Negative Urine Ketones Negative Urine Occult Blood Negative Urine Nitrate Negative Urine Bilirubin Negative Urine Urobilinogen 0.2 Ur Leukocyte Esterase Negative Urine RBC None seen Urine WBC 0-1/hpf Ur Squamous Epith Cells 0-1 /hpf Amorphous Sediment 1+ Urine Bacteria None seen Urine Mucus 1+ H Ur Culture Indicated? Cult not indicated Chlamy pneumoniae PCR Not detected Adenovirus (PCR) Not detected B.parapertussis DNA PCR Not detected Coronavirus OC43 (PCR) Not detected Coronavirus HKU1 (PCR) Not detected Coronavirus 229E (PCR) Not detected Coronavirus NL63 (PCR) Not detected Human Metapneumovir PCR Not detected Influenza Type A (PCR) Not detected Influenza Type B (PCR) Not detected M. pneumoniae (PCR) Not detected Parainfluenza 1 (PCR) Not detected Parainfluenza 2 (PCR) Not detected Parainfluenza 3 (PCR) Not detected Parainfluenza 4 (PCR) Not detected RSV (PCR) Not detected Entero/Rhino (PCR) Not detected 02/28/20 02/28/20 02/28/20 06:15 06:15 06:15 WBC 8.1 RBC 3.13 L Hgb 8.2 L Hct 24.9 L MCV 79.4 L MCH 26.3 MCHC 33.1 RDW 13.9 Plt Count 141 L Neut % (Auto) 71.0 Lymph % (Auto) 15.4 L [place] % (Auto) 12.2 Eos % (Auto) 0.6 L Baso % (Auto) 0.8 Neut # (Auto) 5800 Lymph # (Auto) 1200 [place] # (Auto) 1000 H Eos # (Auto) 0 Baso # (Auto) 100 PT INR APTT ABG pH ABG pCO2 ABG pO2 ABG HCO3 ABG Total CO2 ABG O2 Saturation ABG Base Excess FiO2 Sodium 135 L Potassium 3.5 Chloride 104 Carbon Dioxide 24 BUN 21 H Creatinine 0.96 Estimated GFR 56.2 L BUN/Creatinine Ratio 21.9 Glucose 113 H Calcium 8.8 Magnesium Total Bilirubin AST ALT Alkaline Phosphatase Total Creatine Kinase CK-MB (CK-2) CK-MB (CK-2) Rel Index Troponin I 0.255 H* NT-Pro-B Natriuret Pep Total Protein Albumin Globulin Albumin/Globulin Ratio Urine Color Urine Appearance Urine pH Ur Specific [place] Urine Protein Urine Glucose (UA) Urine Ketones Urine Occult Blood Urine Nitrate Urine Bilirubin Urine Urobilinogen Ur Leukocyte Esterase Urine RBC Urine WBC Ur Squamous Epith Cells Amorphous Sediment Urine Bacteria Urine Mucus Ur Culture Indicated? Chlamy pneumoniae PCR Adenovirus (PCR) B.parapertussis DNA PCR Coronavirus OC43 (PCR) Coronavirus HKU1 (PCR) Coronavirus 229E (PCR) Coronavirus NL63 (PCR) Human Metapneumovir PCR Influenza Type A (PCR) Influenza Type B (PCR) M. pneumoniae (PCR) Parainfluenza 1 (PCR) Parainfluenza 2 (PCR) Parainfluenza 3 (PCR) Parainfluenza 4 (PCR) RSV (PCR) Entero/Rhino (PCR) 02/28/20 06:15 WBC RBC Hgb Hct MCV MCH MCHC RDW Plt Count Neut % (Auto) Lymph % (Auto) [place] % (Auto) Eos % (Auto) Baso % (Auto) Neut # (Auto) Lymph # (Auto) [place] # (Auto) Eos # (Auto) Baso # (Auto) PT 12.7 INR 1.1 APTT 32 ABG pH ABG pCO2 ABG pO2 ABG HCO3 ABG Total CO2 ABG O2 Saturation ABG Base Excess FiO2 Sodium Potassium Chloride Carbon Dioxide BUN Creatinine Estimated GFR BUN/Creatinine Ratio Glucose Calcium Magnesium Total Bilirubin AST ALT Alkaline Phosphatase Total Creatine Kinase CK-MB (CK-2) CK-MB (CK-2) Rel Index Troponin I NT-Pro-B Natriuret Pep Total Protein Albumin Globulin Albumin/Globulin Ratio Urine Color Urine Appearance Urine pH Ur Specific [place] Urine Protein Urine Glucose (UA) Urine Ketones Urine Occult Blood Urine Nitrate Urine Bilirubin Urine Urobilinogen Ur Leukocyte Esterase Urine RBC Urine WBC Ur Squamous Epith Cells Amorphous Sediment Urine Bacteria Urine Mucus Ur Culture Indicated? Chlamy pneumoniae PCR Adenovirus (PCR) B.parapertussis DNA PCR Coronavirus OC43 (PCR) Coronavirus HKU1 (PCR) Coronavirus 229E (PCR) Coronavirus NL63 (PCR) Human Metapneumovir PCR Influenza Type A (PCR) Influenza Type B (PCR) M. pneumoniae (PCR) Parainfluenza 1 (PCR) Parainfluenza 2 (PCR) Parainfluenza 3 (PCR) Parainfluenza 4 (PCR) RSV (PCR) Entero/Rhino (PCR) Assessment & Plan Assessment & Plan narrative: 79-year-old female status post fall out of bed with impacted femoral neck fracture. Plan on proceed with cannulated screw fixation and patient gives informed consent. This is pending clearance by hospitalist due to concerns of chronic GI bleed and cardiac issues. Has a troponin pending later this morning which will help determine suitability for proceeding today.
--- NOTE | 2020-02-28 10:24 | CM.DANOTE ---
Patient is a 79 year old female who was admitted on 02/27/20 for GLF, hip pain. Pt has [facility] and [facility] for insurance and her PCP is Dr. Melany Zarate. EMR was reviewed. Per MD, pt was tested for COVID 19 on 02/19/20 and tested negative and has a hx of lung cancer in remission now and likely G.I. bleed but waiting for [place] results to determine. Ortho MD consulted and pt could benefit from a hip pinning pending her current trops. Per RN, pt mostly alert and oriented and sometimes slightly confused after waking but easily re-oriented. SW met bedside with pt and explained role and updated white board and pt clearly uncomfortable in her hip and attempted to readjust several times in the bed. Pt confirms that she lives in [place] with her adult Dtr/DPOA Bernarda and Bernarda's supportive . Pt is mostly independent with ADL's at baseline and Dtr typically drives. Pt denies any hx of HH or SNF or even being admitted to a hospital before. Pt aware of possible hip pinning pending her labs and is hopeful to d/c back home with supportive family when stable but aware that PT eval needed pending possible hip pinning procedure. Plan: SW to follow closely later today to determine if she is stable for hip pinning in the OR around lunchtime and PT initial eval and recommendations to determine if safe for return home with family when stable. HIGINIO Collier Discharge Planning/Care Management CM Discharge Assessment Start: 02/28/20 10:09 Freq: Status: Active Protocol: Document 02/28/20 10:09 (Rec: 02/28/20 10:24 [id number]) Discharge Planning Assessment Assigned Sex Therapist HIGINIO Steele DPOA/Assigned Designee Name Michaelamber Menchaca Contact Information [phone] Advance Directives? No Advance Directives on File No History Provided By Patient,Medical Record Has Patient been admitted in last 30 No days? Prior Living Arrangements Mobile home Household Members children Type of transporation used prior to Relies on Others admit Comment Lives in [place] with her adult Dtr Bernarda and her son inlaw Independent with ADL's Yes Is patient alert and oriented? Yes Needs Assistance With Home Chores / Shopping Caregiver for Another No Comment Waiting for possible hip pinning surgery and PT eval to determine d/c needs Barriers to Discharge No Discharge Plan Home Community Services Physical Therapy Transportation Arrangement If pt is safe for return home with family then Dtr can provide transport at d/c Additional Comment Waiting for possible surg and PT inial eval and recommendations Whiteboard Updated in Patient Room with Yes name and ext. # of Sex Therapist Review Status In Process Please Provide Date Initial DC 02/28/20 Assessment Was Performed Next Review Type Continued Stay Review
[2020-02-28] MEDS: ALBUTEROL/IPRATROPIUM 3 ML AMPUL INH ×2 (11:05→17:41)
--- NOTE | 2020-02-28 11:30 | PC.NURSE ---
Addendum entered by Neema Guerrero R.N. 02/28/20 12:46: ECHO completed. Most recent BP 123/78. Patient awake and alert, continues to deny chest pain or SOB. Reports improvement in pain in groin/LLE and objectively appears more comfortable. Dr Caicedo aware of EKG report, labs and current vitals, and stated that patient should be okay to go to surgery for a pinning of LLE. PROGRAM SUPPORT ASSISTANT Evelina reported she relayed lab values to Dr Hinton in surgery. Patient transported off floor to PACU at this time on 3L O2. This law writer will call to update daughter Marcella and granddaughter Rashmi. Addendum entered by Neema Guerrero R.N. 02/28/20 11:58: Labs back. Troponin decreased slightly compared to previous. H/H w/ slight improvement compared to previous. ECHO still being done at this time. Addendum entered by Neema Guerrero R.N. 02/28/20 11:55: Patient's granddaughter Rashmi called and this law writer gave her an update on patient condition. Original Note: Hypotension/sweaty: Starting approx 1000 patient C/O awful pain in her groin area and she was sweaty and writhing around in bed. Denied chest pain/pressure/palpitations. BP measured initially (at 1000) was 70/36. Vitals measured multiple times subsequently with most recent BP 106/70 with HR in the 80's. Patient denied SOB/dizziness/lightheadedness at rest. This law writer spoke w/ Dr Caicedo just after this started and informed of vitals,etc, and he came down and assessed patient at that time. Nitro paste removed (per direction from Dr Caicedo) at 1015. Coreg was held this morning r/t hypotension. Assisted patient to reposition in bed, given ice packs for groin and back of neck, fan placed at bedside. STAT EKG and chest x-ray were done and Dr Caicedo aware of results. Repeat H/H, troponin and BMP drawn. ECHO being done at this time. IV fluids per order Bed alarm on.
[2020-02-28 11:32] LABS: Hematocrit 26.3 % (36-46); Hemoglobin 8.5 g/dL (12.0-16.0)
[2020-02-28 11:40] LABS: BUN Creatinine Ratio 19.8 (6-22); Blood Urea Nitrogen 22 mg/dL (7-17); Calcium 8.8 mg/dL (8.4-10.2); Carbon Dioxide 21 mmol/L (22-32); Chloride 107 mmol/L (98-107); Estimated Glomerular Filt Rate 47.5 mL/min (>60); Glucose 122 mg/dL (80-110); HEMOLYSIS < 15 (0-50); Potassium 3.7 mmol/L (3.4-5.1); Sodium 137 mmol/L (137-145)
[2020-02-28 11:58] LABS: Troponin I 0.237 ng/mL (0.01-0.034)
[2020-02-28] MEDS: LACTATED RINGERS 1,000 ML 84 ML IV (13:00)
--- NOTE | 2020-02-28 13:21 | PM.PREOP ---
Pre-operative Note Interval Note History & Physical reviewed/Exam performed by Physician: Yes Changes to H&P: No
[2020-02-28] MEDS: CEFAZOLIN 1 GM/50 ML FROZ.PIGGY IV (13:57)
--- NOTE | 2020-02-28 14:30 | SUR.OPER ---
Supine on padded [place] table with left leg secured in padded positioning boot and suspended in positioning spar,right leg in well leg allen operative leg in traction per surgeon. Head on one pillow. Arm on non-operative side secured on padded armboard <90 degrees abduction. Arm on operative side padded and resting across chest then secured with tape over sheet. Padded perineal post in place per surgeon.
--- NOTE | 2020-02-28 15:02 | PM.OP.1 ---
Operative Date/Time/Diagnoses Date of procedure: 02/28/20 Time of procedure: 15:03 Pre-op diagnosis: Left Post-op diagnosis: same Procedure & Clinicians Procedure: Percutaneous cannulated screw fixation of left femoral neck fracture (CPT 57060) Same procedure as scheduled: Yes Indications: 79-year-old female status post fall with impacted femoral neck fracture. Discussed nature of condition, treatment options, risks, and benefits. Patient elected proceed with surgical fixation as discussed and gives informed consent. Surgeon: Merrick Hinton Click Yes if Unassisted: Yes Anesthesia Type: General Operative Notes Closure Type: primary Estimated Blood Loss (mL): 20 Procedure in detail: After administration of intravenous antibiotics and general anesthetic, patient placed supine on the fracture table with the right leg in the 90 90 well leg allen, and the left leg in the fracture table boot well-padded. Prior to prepping fluoroscopic images taken in AP and lateral planes demonstrate a mildly angulated valgus impacted femoral neck fracture and adequate visualization. Left hip and lower extremity then prepped and draped in the usual sterile fashion. Under fluoroscopic guidance 3 pins were placed percutaneously from the in the lateral femur to the lateral cortex of the femur up femoral neck across the fracture and into the femoral head and the desire and position and triangular configuration. After all 3 pins were determined to be in satisfactory position, incisions were made at the pin sites and the pins measured for depth. Corresponding cannulated screws were then inserted under fluoroscopic guidance and satisfactory maintenance of the position of the femoral head and neck and placement of screws was confirmed. The guidepins were removed the wounds were cleansed and closed with Steri-Strips. Sterile dressings applied the anesthetic terminated and the patient taken to postanesthetic recovery in satisfactory condition. Complications: none Post-operative Condition: stable Disposition: PACU Plan for aftercare: Routine postoperative wound care. Physical therapy ambulation toe-touch weight-bearing. Follow up for wound check and x-rays in 2 weeks. Probable discharge from hospital to extended care facility on postop day 3.
--- NOTE | 2020-02-28 16:01 | SUR.PHASEI ---
Patient taken up to room with all belongings. Report given to ENEIDA Mcfadden. Left in good condition with RN at bedside.
--- NOTE | 2020-02-28 16:48 | PM.PN.1 ---
Subjective Subjective Date Patient Seen: 02/28/20 Time Patient Seen: 16:49 Interval history: Zamzam Randall is a 79-year-old female with an extensive medical history including coronary artery disease with a previous diagnosis of atrial fibrillation and status post permanent pacemaker insertion, peripheral vascular disease, COPD, hypertension, hyperlipidemia, obstructive sleep apnea, renal artery stenosis history of left lower squamous cell lung cancer status post chemotherapy and radiation in remission, neuropathy, GERD and migraines with a history of DVT 25 years ago who presented to the emergency room after being found down by her family, likely overnight. She was found to have a left hip fracture and after an eventful morning underwent percutaneous pinning of the fracture for stabilization. Overnight the patient had a bump in her troponins to a peak of 0.255 this morning. She also showed evidence of ischemic changes with lateral T-wave inversions. This resolved on repeat EKGs this morning. Her hemoglobin also fell from 9.0 on admission to 8.3. She has also complained of dark stools over the past month and progressive fatigue over this period of time as well. Her hemoglobin was around 13 in July of last year. Stool guaiac was ordered but is still pending. She was started on Protonix, and hemoglobin subsequently increased slightly from 8.3 to 8.5. Her troponin downtrended at that time as well.This morning the patient was hypotensive, and still remained on fluids. Chest x-ray was repeated which showed improved interstitial predominance. She still had a nitro patch on which was removed as her EKG showed improvement in T-wave inversions and her troponin had down trended and her chest pain had resolved, with subsequent improvement in her blood pressures. Following this she was deemed stable for percutaneous pinning of her left hip fracture. Exam Vital Signs (past 8 hours): - 02/28/20 08:59 02/28/20 09:58 02/28/20 10:13 Temperature Pulse Rate 82 86 86 Respiratory Rate Blood Pressure 112/64 70/36 L 76/62 L Pulse Oximetry 94 94 02/28/20 10:15 02/28/20 10:31 02/28/20 10:34 Temperature Pulse Rate 87 84 Respiratory Rate Blood Pressure 88/36 L 83/59 L Pulse Oximetry 92 88 L 90 L 02/28/20 10:35 02/28/20 10:48 02/28/20 11:04 Temperature Pulse Rate 80 Respiratory Rate Blood Pressure 93/51 L Pulse Oximetry 94 92 94 02/28/20 11:06 02/28/20 11:22 02/28/20 11:25 Temperature 98.1 F Pulse Rate 83 78 Respiratory Rate 20 Blood Pressure 106/70 Pulse Oximetry 97 99 97 02/28/20 12:29 02/28/20 12:54 02/28/20 15:02 Temperature 97.4 F L 99.0 F Pulse Rate 78 75 81 Respiratory Rate 16 11 L Blood Pressure 123/78 122/71 97/57 L Pulse Oximetry 92 97 93 02/28/20 15:07 02/28/20 15:12 02/28/20 15:17 Temperature 97.8 F 97.0 F L 97.3 F L Pulse Rate 74 76 78 Respiratory Rate 11 L 11 L 10 L Blood Pressure 118/71 118/73 165/87 H Pulse Oximetry 94 91 97 02/28/20 15:32 02/28/20 16:05 Temperature 97.7 F Pulse Rate 77 77 Respiratory Rate 16 16 Blood Pressure 141/89 H 157/99 H Pulse Oximetry 93 98 Oxygen Delivery Method Room Air Oxygen Flow Rate 2 Narrative Exam Narrative: GENERAL APPEARANCE: well developed, restless but cooperative chronically ill-appearing elderly female. HEENT: Atraumatic, PERRLA, conjunctiva clear, EOMs intact without nystagmus, no sinus tenderness to percussion, no rhinorrhea, mucous membranes are moist and pink without lesions or exudate. NECK/THYROID: Full ROM, no step-offs, no JVD, no thyromegaly, trachea midline. LYMPH NODES: no cervical or supraclavicular lymphadenopathy. SKIN: [place], warm and dry, no visible ecchymosis, vascular insufficiency skin changes bilateral lower extremities. HEART: regular rate and rhythm, S1-S2, no murmur appreciated, delayed capillary refill bilateral toes at 3-4 seconds. LUNGS: Coarse bilaterally bilaterally, no wheezing, no cough present. CHEST: Symmetrical movement, no accessory muscle use, good tidal volume. ABDOMEN: Soft, no distention, no abdominal tenderness, no organomegaly, no flank or suprapubic tenderness, Griffin catheter in place, active bowel tones. EXTREMITIES: moves all extremities, pain left groin and hip. NEUROLOGIC: AAO to person confused as to place and situation, follows commands, no focal neurological deficits PSYCH: impaired cognition but common cooperative. Objective Labs Result Diagrams: 02/28/20 12:00 02/28/20 12:00 Labs: Laboratory Results - last 24 hr 02/27/20 02/27/20 02/27/20 13:57 19:31 21:59 WBC RBC Hgb Hct MCV MCH MCHC RDW Plt Count Neut % (Auto) Lymph % (Auto) [place] % (Auto) Eos % (Auto) Baso % (Auto) Neut # (Auto) Lymph # (Auto) [place] # (Auto) Eos # (Auto) Baso # (Auto) PT INR APTT Sodium Potassium Chloride Carbon Dioxide BUN Creatinine Estimated GFR BUN/Creatinine Ratio Glucose Calcium Magnesium 1.7 Troponin I Urine Color Yellow Urine Appearance Clear Urine pH 5.5 Ur Specific [place] 1.020 Urine Protein 1+ H Urine Glucose (UA) Negative Urine Ketones Negative Urine Occult Blood Negative Urine Nitrate Negative Urine Bilirubin Negative Urine Urobilinogen 0.2 Ur Leukocyte Esterase Negative Urine RBC None seen Urine WBC 0-1/hpf Ur Squamous Epith Cells 0-1 /hpf Amorphous Sediment 1+ Urine Bacteria None seen Urine Mucus 1+ H Ur Culture Indicated? Cult not indicated Chlamy pneumoniae PCR Not detected Adenovirus (PCR) Not detected B.parapertussis DNA PCR Not detected Coronavirus OC43 (PCR) Not detected Coronavirus HKU1 (PCR) Not detected Coronavirus 229E (PCR) Not detected Coronavirus NL63 (PCR) Not detected Human Metapneumovir PCR Not detected Influenza Type A (PCR) Not detected Influenza Type B (PCR) Not detected M. pneumoniae (PCR) Not detected Parainfluenza 1 (PCR) Not detected Parainfluenza 2 (PCR) Not detected Parainfluenza 3 (PCR) Not detected Parainfluenza 4 (PCR) Not detected RSV (PCR) Not detected Entero/Rhino (PCR) Not detected 02/27/20 02/28/20 02/28/20 22:25 06:15 06:15 WBC 8.1 RBC 3.13 L Hgb 8.2 L Hct 24.9 L MCV 79.4 L MCH 26.3 MCHC 33.1 RDW 13.9 Plt Count 141 L Neut % (Auto) 71.0 Lymph % (Auto) 15.4 L [place] % (Auto) 12.2 Eos % (Auto) 0.6 L Baso % (Auto) 0.8 Neut # (Auto) 5800 Lymph # (Auto) 1200 [place] # (Auto) 1000 H Eos # (Auto) 0 Baso # (Auto) 100 PT INR APTT Sodium Potassium Chloride Carbon Dioxide BUN Creatinine Estimated GFR BUN/Creatinine Ratio Glucose Calcium Magnesium Troponin I 0.246 H* 0.255 H* Urine Color Urine Appearance Urine pH Ur Specific [place] Urine Protein Urine Glucose (UA) Urine Ketones Urine Occult Blood Urine Nitrate Urine Bilirubin Urine Urobilinogen Ur Leukocyte Esterase Urine RBC Urine WBC Ur Squamous Epith Cells Amorphous Sediment Urine Bacteria Urine Mucus Ur Culture Indicated? Chlamy pneumoniae PCR Adenovirus (PCR) B.parapertussis DNA PCR Coronavirus OC43 (PCR) Coronavirus HKU1 (PCR) Coronavirus 229E (PCR) Coronavirus NL63 (PCR) Human Metapneumovir PCR Influenza Type A (PCR) Influenza Type B (PCR) M. pneumoniae (PCR) Parainfluenza 1 (PCR) Parainfluenza 2 (PCR) Parainfluenza 3 (PCR) Parainfluenza 4 (PCR) RSV (PCR) Entero/Rhino (PCR) 02/28/20 02/28/20 02/28/20 06:15 06:15 12:00 WBC RBC Hgb Hct MCV MCH MCHC RDW Plt Count Neut % (Auto) Lymph % (Auto) [place] % (Auto) Eos % (Auto) Baso % (Auto) Neut # (Auto) Lymph # (Auto) [place] # (Auto) Eos # (Auto) Baso # (Auto) PT 12.7 INR 1.1 APTT 32 Sodium 135 L Potassium 3.5 Chloride 104 Carbon Dioxide 24 BUN 21 H Creatinine 0.96 Estimated GFR 56.2 L BUN/Creatinine Ratio 21.9 Glucose 113 H Calcium 8.8 Magnesium Troponin I 0.237 H* Urine Color Urine Appearance Urine pH Ur Specific [place] Urine Protein Urine Glucose (UA) Urine Ketones Urine Occult Blood Urine Nitrate Urine Bilirubin Urine Urobilinogen Ur Leukocyte Esterase Urine RBC Urine WBC Ur Squamous Epith Cells Amorphous Sediment Urine Bacteria Urine Mucus Ur Culture Indicated? Chlamy pneumoniae PCR Adenovirus (PCR) B.parapertussis DNA PCR Coronavirus OC43 (PCR) Coronavirus HKU1 (PCR) Coronavirus 229E (PCR) Coronavirus NL63 (PCR) Human Metapneumovir PCR Influenza Type A (PCR) Influenza Type B (PCR) M. pneumoniae (PCR) Parainfluenza 1 (PCR) Parainfluenza 2 (PCR) Parainfluenza 3 (PCR) Parainfluenza 4 (PCR) RSV (PCR) Entero/Rhino (PCR) 02/28/20 02/28/20 12:00 12:00 WBC RBC Hgb 8.5 L Hct 26.3 L MCV MCH MCHC RDW Plt Count Neut % (Auto) Lymph % (Auto) [place] % (Auto) Eos % (Auto) Baso % (Auto) Neut # (Auto) Lymph # (Auto) [place] # (Auto) Eos # (Auto) Baso # (Auto) PT INR APTT Sodium 137 Potassium 3.7 Chloride 107 Carbon Dioxide 21 L BUN 22 H Creatinine 1.11 H Estimated GFR 47.5 L BUN/Creatinine Ratio 19.8 Glucose 122 H Calcium 8.8 Magnesium Troponin I Urine Color Urine Appearance Urine pH Ur Specific [place] Urine Protein Urine Glucose (UA) Urine Ketones Urine Occult Blood Urine Nitrate Urine Bilirubin Urine Urobilinogen Ur Leukocyte Esterase Urine RBC Urine WBC Ur Squamous Epith Cells Amorphous Sediment Urine Bacteria Urine Mucus Ur Culture Indicated? Chlamy pneumoniae PCR Adenovirus (PCR) B.parapertussis DNA PCR Coronavirus OC43 (PCR) Coronavirus HKU1 (PCR) Coronavirus 229E (PCR) Coronavirus NL63 (PCR) Human Metapneumovir PCR Influenza Type A (PCR) Influenza Type B (PCR) M. pneumoniae (PCR) Parainfluenza 1 (PCR) Parainfluenza 2 (PCR) Parainfluenza 3 (PCR) Parainfluenza 4 (PCR) RSV (PCR) Entero/Rhino (PCR) Assessment & Plan Assessment & Plan narrative: Zamzam Randall is a 79-year-old female with an extensive medical history including coronary artery disease with a previous diagnosis of atrial fibrillation and status post permanent pacemaker insertion, peripheral vascular disease, COPD, hypertension, hyperlipidemia, obstructive sleep apnea, renal artery stenosis history of left lower squamous cell lung cancer status post chemotherapy and radiation in remission, neuropathy, GERD and migraines with a history of DVT 25 years ago who presented to the emergency room after being found down by her family, likely overnight. She was found to have a left hip fracture and after an eventful morning underwent percutaneous pinning of the fracture for stabilization. 1. Acute left subcapital femoral neck fracture, present on admission, active -Patient sustained a ground level fall from her bed to the floor and per best reports last night and has been nonambulatory with chief complaint of left groin pain. -Left hip x-ray identifies mildly displaced impacted subcapital femoral neck fracture. -Dr. Hinton was contacted through the emergency department has agreed to consult, we appreciate Dr. Hinton's management. -pain control ordered by Orthopedic surgery, continue to adjust as necessary. 2. Acute on chronic respiratory failure with hypoxemia, COPD, bronchitis, present on admission, resolved -History of left lower lobe squamous cell lung cancer treated with chemotherapy and radiation in 2015, presently in remission followed by oncology. -Present smoker 1/2 pack per day. Chest x-ray consistent with COPD with radiology interpretation of diffuse interstitial prominence lead to be pulmonary edema. -Arterial blood gas finds a pH of 7.37, pCO2 29.4, PO2 low at 47, bicarbonate at 17, base excess of -8 with oxygen saturation of 83%. -improved oxygenation requirements prior to the OR. -echocardiogram obtained but still pending. This may be in the setting of NSTEMI, possible flash pulmonary edema, however etiology is unclear. This does not likely represent COPD exacerbation. 3. Coronary artery disease, history of atrial fibrillation probable paroxysmal in nature not on anticoagulation, presently in sinus rhythm, active. -Patient has not complained of chest pain but has chronic shortness of breath and treated for pneumonia with Levaquin by her primary care provider recently. -Twelve lead EKG finds sinus rhythm with a ventricular rate of 90 with a sinus arrhythmia without ventricular ectopy, with inverted T-waves laterally and inferior Q-waves which improved on repeat examination. -Continue home regimen of aspirin 81 mg twice daily, carvedilol half dosing as noted below and lisinopril 2.5 mg daily. -patient will remain on cardiac telemetry. 4. Microcytic anemia, possibly acute, present on admission -patient with admission hemoglobin of 9.0, with reports of dark stools as well as epigastric pain. Hemoglobin on repeat was 8.3. At that point patient was started on Protonix with improvement in hemoglobin to 8.5. -suspect either upper or lower GI bleeding. Stool guaiac pending. Daughter reports that patient has not had a colonoscopy in 25 years. She sees a GI specialist for her hepatitis C, and do recommend follow-up as an outpatient for possible EGD/colonoscopy if her hemoglobin remains stable. -continue Protonix IV 40 mg b.i.d. 5. Peripheral vascular disease, present on admission, stable. -Patient with decreased capillary refill at 3-4 seconds bilateral feet, vascular insufficiency skin changes bilateral lower extremities, history renal and subclavian stents. -Continue home regimen lisinopril and monitor condition. 6. History of hepatitis C, stable -History of hepatitis C exposure, on 12/30/2019 HCV antibody was reactive at 28.9 (cut off 1.0). No evidence of hepatomegaly and she does not consume alcohol. She has plan to start hepatitis C therapy within the next month per her daughter. -Patient has a bilirubin of 0.5, AST minimally elevated at 43, ALT of 21 and alkaline phosphatase of 87, albumin is 4.1 and platelets are 186. 7. Essential hypertension, present on admission stable. -Continue home regimen of aspirin 81 mg twice daily, Coreg will be reduced to half dosing at 6.125 twice daily given hypotension this morning. Can continue lisinopril 2.5 mg daily. 8. Hyperlipidemia, present on admission, stable. Continue home regimen of atorvastatin 40 mg daily. 9. NSTEMI, type 2 LA, inferior lateral EKG changes, resolved -nitropaste, 1/2 inch topically which was discontinued for hypotension this morning. -troponin ultimately peaked at 0.255, and EKG changes resolved. -patient currently taking aspirin twice daily, consider cessation if bleeding remains active. -echocardiogram obtained today, currently pending. VTE prophylaxis: SCDs, chemical prophylaxis contraindicated with possible bleeding Diet: Heart healthy Code status: Patient is presently FULL CODE. Patient is unable to confirm status will require clarification with daughter. Dispo: Anticipate discharge in the next 1-2 days after physical therapy evaluation, she will likely need SNF placement.
[2020-02-28] MEDS: ACETAMINOPHEN 325 MG TABLET 650 MG PO ×2 (17:04→20:21)
[2020-02-28] MEDS: DOCUSATE 100 MG CAPSULE PO (20:21)
[2020-02-28] MEDS: ASPIRIN EC 81 MG TABLET PO (20:21)
[2020-02-28] MEDS: carvediloL 6.25 MG TABLET PO (20:58)
[2020-02-29] VITALS (17 sets, daily range): BP systolic 106–157; BP diastolic 49–88; PULSE 79–89; RESP 14–19; TEMP 35.8–36.7; O2SAT 89–99
[2020-02-29] MEDS: BACLOFEN 10 MG TABLET PO ×3 (00:33→20:56)
[2020-02-29] MEDS: MAGNESIUM OXIDE 400 MG TABLET PO (00:33)
--- NOTE | 2020-02-29 00:39 | PC.NURSE ---
Addendum entered by Marta Canseco R.N. 02/29/20 06:40: Noted O2 sat this morning was 99% so oxygen decreased to 1L/min. Patient states she slept very well. Denies any pain. Original Note: Patient knows self, birthday, age, month, year and why she is here. Breath sounds with expiratory rhonchi. On oxygen at 3L/min per NC at shift change with sat of 97% so decreased to 2L/min and now at 96%. HRR; telemetry reading was SR. Denies nausea. BT hypoactive; abdomen is soft. Indwelling catheter is patent; urine is clear, dark yellow. Restless at start of shift and continues to be so but not as severe. States pain is 6/10; Freddy HEBERT, informed by previous shift and ordered Baclofen + Mag Oxide to try before giving additional pain meds. Dressing to left hip is CDI. Feet cold to touch but good PP. Able to wiggle feet but not lift left leg. Wearing bilateral calf SCD's. Needing assist to reposition. Gait not assessed as has not been out of bed as yet. Fall risk score is high and bed alarm is activated.
[2020-02-29 07:04] LABS: BUN Creatinine Ratio 24.5 (6-22); Blood Urea Nitrogen 25 mg/dL (7-17); Calcium 8.7 mg/dL (8.4-10.2); Carbon Dioxide 25 mmol/L (22-32); Chloride 104 mmol/L (98-107); Estimated Glomerular Filt Rate 52.4 mL/min (>60); Glucose 117 mg/dL (80-110); HEMOLYSIS < 15 (0-50); Magnesium 1.8 mg/dL (1.6-2.3); Sodium 135 mmol/L (137-145)
[2020-02-29 07:05] LABS: Add Manual Diff / Slide Review NO; Basophils Absolute Auto 100 /uL (0-100); Basophils Percent Auto 0.6 % (0-2); Eosinophils Absolute Auto 100 /uL (0-450); Eosinophils Percent Auto 0.9 % (2-4); Hematocrit 24.2 % (36-46); Lymphocytes Absolute Auto 1100 /uL (1100-4500); Lymphocytes Percent Auto 12.8 % (25-40); Mean Corpuscular HGB Conc 32.9 % (30-36); Mean Corpuscular Hemoglobin 26.1 PG (26-34); Mean Corpuscular Volume 79.2 fL (80-100); Monocytes Absolute Auto 1100 /uL (0-900); Monocytes Percent Auto 12.1 % (3-14); Neutrophils Absolute Auto 6400 /uL (1500-7000); Neutrophils Percent Auto 73.6 % (50-75); Platelet Count 150 X10^3/uL (150-400); Red Blood Cell Count 3.05 X10^6/uL (4.0-5.2); Red Cell Distribution Width 14.1 % (11.6-14.8); White Blood Cell Count 8.7 X10^3/uL (4.5-11.0)
--- NOTE | 2020-02-29 08:54 | PM.PNPO.1 ---
Subjective Subjective Date Patient Seen: 02/29/20 Time Patient Seen: 08:55 Interval history: Postop day 1. Closed reduction and cannulated screw fixation of subcapital femoral neck fracture on the left. Patient complains of moderate left hip pain but well controlled on pain medication. Exam Vital Signs (past 8 hours): - 02/29/20 05:48 Temperature 97.0 F L Pulse Rate 82 Respiratory Rate 18 Blood Pressure 141/75 H Pulse Oximetry 99 Oxygen Delivery Method Nasal Cannula Oxygen Flow Rate 2 Narrative Exam Narrative: Dressings dry and intact the patient is currently sleeping. Objective Labs Result Diagrams: 02/29/20 06:29 02/29/20 06:29 Labs: Laboratory Results - last 24 hr 02/28/20 02/28/20 02/28/20 12:00 12:00 12:00 WBC RBC Hgb 8.5 L Hct 26.3 L MCV MCH MCHC RDW Plt Count Neut % (Auto) Lymph % (Auto) [place] % (Auto) Eos % (Auto) Baso % (Auto) Neut # (Auto) Lymph # (Auto) [place] # (Auto) Eos # (Auto) Baso # (Auto) Sodium 137 Potassium 3.7 Chloride 107 Carbon Dioxide 21 L BUN 22 H Creatinine 1.11 H Estimated GFR 47.5 L BUN/Creatinine Ratio 19.8 Glucose 122 H Calcium 8.8 Magnesium Troponin I 0.237 H* 02/29/20 02/29/20 06:29 06:29 WBC 8.7 RBC 3.05 L Hgb 8.0 L Hct 24.2 L MCV 79.2 L MCH 26.1 MCHC 32.9 RDW 14.1 Plt Count 150 Neut % (Auto) 73.6 Lymph % (Auto) 12.8 L [place] % (Auto) 12.1 Eos % (Auto) 0.9 L Baso % (Auto) 0.6 Neut # (Auto) 6400 Lymph # (Auto) 1100 [place] # (Auto) 1100 H Eos # (Auto) 100 Baso # (Auto) 100 Sodium 135 L Potassium 4.0 Chloride 104 Carbon Dioxide 25 BUN 25 H Creatinine 1.02 Estimated GFR 52.4 L BUN/Creatinine Ratio 24.5 H Glucose 117 H Calcium 8.7 Magnesium 1.8 Troponin I Assessment & Plan Post-op Postoperative Procedures: Procedures Operation Date: 02/28/20 10:30 Actual Procedures Side Surgeon p ORIF Hip/Cannulated Screws Merrick Hinton MD Postoperative day: 1 Postoperative status: doing well Postoperative status narrative: Patient doing reasonably well by report and pain reasonably well controlled on pain medication. Postoperative plan: routine post-op care Postoperative plan narrative: Routine postoperative wound care, physical therapy toe-touch weight-bearing. Anticipate discharge postop day 3 likely to ECF. Will need follow-up x-rays in 10-14 days.
--- NOTE | 2020-02-29 09:19 | P.PN_ITS ---
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 The patient is resting in bed comfortably. She reports she slept very well after receiving baclofen for muscle spasms. She endorses mild discomfort at left hip that is controlled with pain medications. She has no other complaints and denies headache, cough, shortness of breath, chest pain, abdominal pain, nausea, vomiting, fever, chills, dysuria, diarrhea or constipation. She is voiding without difficulty. She has not had a bowel movement since admission and a bowel regimen has been implemented to avoid opiate induced constipation. Exam Vital Signs (past 8 hours): - 02/29/20 05:48 Temperature 97.0 F L Pulse Rate 82 Respiratory Rate 18 Blood Pressure 141/75 H Pulse Oximetry 99 Oxygen Delivery Method Nasal Cannula Oxygen Flow Rate 2 Narrative Exam Narrative: General: Elderly female lying in bed and in no acute distress, appears older than stated age well-developed, well-nourished, appropriately interactive HEENT: Normocephalic, atraumatic. External ears without defect. Pupils equal, round, and reactive to light. Anicteric sclerae, moist conjunctivae, and no lid lag. Oropharynx free of erythema and cobble stoning with dry oral mucosa. Neck: Supple with full range of motion. No lymphadenopathy or thyromegaly. Cardiovascular: Regular rate and rhythm without murmurs, rubs, or gallops appreciated. Pulmonary: Clear to auscultation bilaterally without crackles, wheezes, or rhonchi. Normal respiratory effort with no use of accessory muscles. Abdomen: Soft, bowel sounds present, nontender, nondistended. No hepatosplenomegaly or masses appreciated. Extremities: No clubbing, cyanosis, or edema. Left hip with dressing in place C/D/I without surrounding erythema or edema. Bilateral lower extremity venous stasis dermatitis. Skin: Normal temperature, turgor, and texture; no rash, ulcers, or subcutaneous nodules appreciated. Neurological: Cranial nerves grossly intact. Psychiatric: Normal mood and affect. Alert and oriented to person, place, and time. Possible mild confusion versus mild cognitive impairment. Objective Labs Result Diagrams: 03/01/20 02:10 03/01/20 02:10 Labs: Laboratory Results - last 24 hr 02/28/20 02/28/20 02/28/20 12:00 12:00 12:00 WBC RBC Hgb 8.5 L Hct 26.3 L MCV MCH MCHC RDW Plt Count Neut % (Auto) Lymph % (Auto) Pike % (Auto) Eos % (Auto) Baso % (Auto) Neut # (Auto) Lymph # (Auto) [place]ike # (Auto) Eos # (Auto) Baso # (Auto) Sodium 137 Potassium 3.7 Chloride 107 Carbon Dioxide 21 L BUN 22 H Creatinine 1.11 H Estimated GFR 47.5 L BUN/Creatinine Ratio 19.8 Glucose 122 H Calcium 8.8 Magnesium Troponin I 0.237 H* 02/29/20 02/29/20 06:29 06:29 WBC 8.7 RBC 3.05 L Hgb 8.0 L Hct 24.2 L MCV 79.2 L MCH 26.1 MCHC 32.9 RDW 14.1 Plt Count 150 Neut % (Auto) 73.6 Lymph % (Auto) 12.8 L Pike % (Auto) 12.1 Eos % (Auto) 0.9 L Baso % (Auto) 0.6 Neut # (Auto) 6400 Lymph # (Auto) 1100 Pike # (Auto) 1100 H Eos # (Auto) 100 Baso # (Auto) 100 Sodium 135 L Potassium 4.0 Chloride 104 Carbon Dioxide 25 BUN 25 H Creatinine 1.02 Estimated GFR 52.4 L BUN/Creatinine Ratio 24.5 H Glucose 117 H Calcium 8.7 Magnesium 1.8 Troponin I Assessment & Plan Assessment & Plan narrative: Zamzam Umanzor is a 79-year-old female with an extensive medical history including coronary artery disease, hypertension, hyperlipidemia, paroxysmal atrial fibrillation and previous DVT 25 years ago on aspirin, permanent pacemaker, peripheral vascular disease, COPD, obstructive sleep apnea, renal artery stenosis, left lower lobe squamous cell lung cancer status post chemotherapy and radiation in remission, neuropathy, GERD and migraines who presented to the ED after being found down for unknown amount of time by her family and found to have left hip fracture. 1. Acute left subcapital femoral neck fracture, status post percutaneous pining, present on admission. Active. -Patient sustained a ground level fall from her bed to the floor and presented after being down for unknown amount of time unable to ambulate with complaint of left groin pain. -Left hip x-ray demonstrated mildly displaced impacted subcapital femoral neck fracture. -Consulted orthopedic surgery, Dr. Hinton, who performed percutaneous pinning. Continue post-operative, pain and DVT prophylaxis per ortho. -Continue calcium and vit D3 supplementation. Patient will need to be evaluated and treated for osteoporosis as an outpatient per PCP. 2. Type 2 NV, with history of CAD, present on admission. Resolving. -Secondary to demand ischemia from hip fracture and possible GI bleed. -Patient endorsed chest pain and received nitropaste which was discontinued due to hypotension. -EKG demonstrated sinus rhythm with pathological Q-waves in inferior leads likely due to old NV. -Troponin peaked at 0.255 and trended down. -Echocardiogram had no significant change since previous exam and without focal wall motion abnormalities. -Continue aspirin 81 twice daily. 3. Acute on chronic hypoxemic respiratory failure, present on admission. Resolved. -Unclear etiology but most likely due to pain and splinting versus demand ischemia from type 2 NV versus recent pneumonia for which the patient was treated with Levaquin and ruled out for COVID 19 on 02/22/20. -History of left lower lobe squamous cell lung cancer status post chemotherapy and radiation in 2014 and currently thought to be in remission. Patient is followed by [facility]. -Patient currently smokes 0.5 pack per day. -Chest x-ray consistent with COPD with radiology interpretation of diffuse interstitial prominence lead to be pulmonary edema. -Arterial blood gas finds a pH of 7.37, pCO2 29.4, PO2 low at 47, bicarbonate at 17, base excess of -8 with oxygen saturation of 83%. -Continued supplemental oxygen to maintain oxygen saturations 88-92% and titrate off as tolerated. Patient currently off oxygen. 4. History of atrial fibrillation, likely paroxysmal and not on anticoagulation, present on admission. Stable. -EKG demonstrated sinus rhythm with a sinus arrhythmia and inverted T-waves laterally and inferior Q-waves. -Continue home aspirin 81 mg twice daily and carvedilol decreased from 12.5 mg to 3.125 mg twice daily due to intermittent hypotension. -Continue to monitor on telemetry. 5. Acute on chronic microcytic anemia, acute portion secondary to acute blood loss from GI bleed and hip fracture, present on admission. Active. -Patient report dark stools as well as epigastric pain. -Suspect small portion from acute hip fracture and other component either upper or lower GI bleeding. -Initial hemoglobin of 9.0. Baseline appears to be 13.0 to 14.0 in 07/2019. Repeat hemoglobin trended down but has stabilized. -Continue Protonix 40 mg daily. -Daughter reports that patient has not had a colonoscopy in 25 years. The patient has a GI specialist for her hepatitis C and recommend that she follow-up as an outpatient for possible EGD/colonoscopy as hemoglobin has stabilized. 6. Hypertension, chronic, present on admission. Stable. -Continue home carvedilol decreased from 12.5 mg twice daily and lisinopril 2.5 mg daily. 7. Hyperlipidemia, chronic, present on admission. Stable. -Continue home aspirin 81 mg twice daily and atorvastatin 40 mg daily at bedtime. 8. Peripheral vascular disease, present on admission. Stable. -Patient with decreased capillary refill at 3-4 seconds bilateral feet and stasis dermatitis of bilateral lower extremities. Patient also has a history of renal and subclavian stents. -Continue aspirin 81 mg twice daily and atorvastatin 40 mg daily at bedtime. 9. History of hepatitis C, present on admission. Stable -History of hepatitis C exposure on 12/30/2019. HCV antibody was reactive at 28.9 (cut off 1.0). No evidence of hepatomegaly and she does not consume alcohol. Patient has plan to start therapy for hepatitis C within the next luis h per her daughter. -Patient has a bilirubin of 0.5, AST minimally elevated at 43, ALT of 21 and alk mady phosphatase of 87, albumin is 4.1 and platelets are 186. Code status: FULL CODE. Patient is unable to confirm status will require clarification with daughter. VTE prophylaxis: SCDs, chemical prophylaxis contraindicated with possible bleeding Disposition: Patient will likely [facility] in next 1-2 days for continued rehabilitation.
[2020-02-29] MEDS: ACETAMINOPHEN 325 MG TABLET 650 MG PO ×3 (09:41→20:23)
[2020-02-29] MEDS: polyethylene glycoL 3350 17 GM POWD.PACK PO (09:43)
[2020-02-29] MEDS: DOCUSATE 100 MG CAPSULE PO ×2 (09:43→20:23)
[2020-02-29] MEDS: lisinopriL 5 MG TABLET 2.5 MG PO (09:43)
[2020-02-29] MEDS: SODIUM CHLORIDE 0.9% FLUSH 10 ML IV ×2 (09:43→22:30)
[2020-02-29] MEDS: ASPIRIN EC 81 MG TABLET PO ×2 (09:43→20:23)
[2020-02-29] MEDS: carvediloL 6.25 MG TABLET PO (09:43)
[2020-02-29] MEDS: PANTOPRAZOLE 40 MG TABLET PO (10:30)
--- NOTE | 2020-02-29 11:05 | PT.IIE ---
Current Diagnoses Unspecified intracapsular fracture of left femur, initial encounter for closed fracture (02/27/20) Surgery Performed Operation Date: 02/28/20 10:30 Actual Procedures p ORIF Hip/Cannulated Screws - Merrick Hinton MD Surgical History (Last Updated 02/27/20 @ 21:24 by ANUP Randall) History of bilateral carotid endarterectomy (Acute) History of cataract surgery (Acute) History of intravascular stent placement (Acute) History of permanent cardiac pacemaker placement (Resolved 10/2017) History of stent insertion of renal artery (Acute) Hx of appendectomy (Resolved Unknown) Hx of hysterectomy (Resolved Unknown) Hx of tonsillectomy (Resolved Unknown) Medical History (Last Updated 02/27/20 @ 21:14 by ANUP Randall) Anxiety (Chronic) Chronic viral hepatitis, unspecified (Chronic Unknown) COPD (chronic obstructive pulmonary disease) (Chronic Unknown) Coronary artery disease involving [place] coronary artery of [place] heart without angina pectoris (10/20/15) Decreased platelet count (Acute) Degenerative joint disease involving multiple joints (Chronic Unknown) Elevated liver enzymes (Acute) Essential hypertension (10/20/15) Essential tremor (11/29/16) Fatigue (Chronic) Fibromyalgia (Chronic Unknown) GERD (gastroesophageal reflux disease) (Chronic Unknown) Low back pain (Chronic) Malignant neoplasm of lower lobe of left lung (10/20/15) Migraines (Chronic Unknown) Mixed hyperlipidemia (10/20/15) Muscle spasm of both lower legs (Acute) Peripheral neuropathy (Chronic Unknown) Renal artery stenosis (Chronic Unknown) Sleep apnea (Chronic Unknown) Thoracic back pain (Chronic) Tobacco abuse (Acute) Vascular insufficiency (Chronic Unknown) Physical Therapy Inpatient Evaluation/Re-Eval M1 PT/OT-IP Prior Functional Status Start: 02/29/20 09:08 Freq: NEEDED Status: Active Protocol: Document 02/29/20 11:05 LRN (Rec: 02/29/20 12:40 LRN [id number]) Medical Review Prior Functional Status Medical History Reviewed Yes Mobility and Gait Pt reports ambulating with a cane, independently. Activities of Daily Living and IADL's Pt reports being independent, but her daughter lives with her. Social History Household Members children Living Arrangements Mobile home Number of Floors (Floors) One Floor Number of Stairs To Enter/Railing? 5 steps Home Equipment Straight Cane Additional Social History Comment Pt reports recently losing her son. M2 PT-IP Current Condition Start: 02/29/20 09:08 Freq: NEEDED Status: Active Protocol: Document 02/29/20 11:05 LRN (Rec: 02/29/20 12:40 LRN [id number]) Physical Therapy Current Condition Current Condition Evaluation Date 02/29/20 Treatment Diagnosis Fell out of bed, L leg/hip/ groin pain. Onset Date 02/28/20 Precautions Other Precautions Wbing: See below Weight Bearing Status Weight Bearing Status Touch Down Weight Bearing M3 PT-IP Subjective Start: 02/29/20 09:08 Freq: NEEDED Status: Active Protocol: Document 02/29/20 11:05 LRN (Rec: 02/29/20 12:40 LRN [id number]) Subjective Physical Therapy Visit Type Type Initial Evaluation Visit Start Time 11:05 Visit Stop Time 11:45 Total Visit Minutes 40 Notes Nursing present for a portion of the therapy visit. Physical Therapy Visit Comments Patient Comments Pt was emotional during a portion of the therapy, but was accepting of the idea of being discharged to a [facility] for rehab. Patient Goals Pt goal is to return home. Therapy Pain Assessment Pain When Pain Assessed At Rest Pain Present Pain Present Pain Reported Location left hip Intensity 5 Scale Used Numeric (1 - 10) M4 PT-IP Mobility and Gait Start: 02/29/20 09:08 Freq: NEEDED Status: Active Protocol: Document 02/29/20 11:05 LRN (Rec: 02/29/20 12:40 LRN [id number]) PT-Bed Mobility Assessment Supine to Sit Supine to Sit Maximum Assistance,2 Person Assistance Scooting Scooting to Edge of Bed Moderate Assistance Scooting Up and Down in Bed Moderate Assistance PT-Transfer Assessment Comments Mobility Comments Nursing present to assist with transfer. Pt on 0.5L-1L O2 via n.c., SpO2 sat was variable throughout the treatment, from 84% to 91%. Nursing verbally okayed therapy with SpO2 88% lowest. Pt was assisted to sitting and was only able to tolerate a very short period in sitting due to an increasing light headed feeling. The pt was quickly returned back to bed and adjusted in bed to pt and nursing satisfaction. Ending BP: 106/609, spO2 93% on 1L O2. In Bed the pt was performing bilateral LE bridging motion, even after repeated requests for pt not to weight bear with legs. PT-Balance Assessment Sitting Balance and Reactions Static Sitting Balance Ability Good M5 PT-IP Objective Assessments Start: 02/29/20 09:08 Freq: NEEDED Status: Active Protocol: Document 02/29/20 11:05 LRN (Rec: 02/29/20 12:40 LRN [id number]) Orientation Orientation/Cognition Level of Alertness Confusional State Orientation Name,Age,Birthday Language Function Ability Garbled Speech Safety Awareness Decreased Safety Awareness Comments Pt is NOT following TTWB order . Pt was aware she fell off her bed but was unaware of her fracture. She thought she was in [place] at a custodial. Gross Range of Motion Upper Extremity ROM Assessment Within Functional Limits Lower Extremity ROM Assessment Left Impaired Strength Upper Extremity Strength Assessment Within Functional Limits Lower Extremity Strength Assessment Left Impaired Sensation Assessment Sensation Gross Sensation Right LE Impaired,Left LE Impaired Light Touch Intact Comments Sensation Comments Pt is decreased in sensation in bilateral LE's. M6 PT-IP Treatment Start: 02/29/20 09:08 Freq: NEEDED Status: Active Protocol: Document 02/29/20 11:05 LRN (Rec: 02/29/20 12:40 LRN [id number]) Physical Therapy Treatment Exercises Exercises Ankle Pumps,Gluteal Sets,Heel Slides,Supine Hip Abduction, Short Arc Quads Education Education Provided Weight Bearing Status Other Treatments Other Treatment Performed Pt was assisted with Heel slides, hip AB & SAQ's. M7 PT-IP Assessment and Plan Start: 02/29/20 09:08 Freq: NEEDED Status: Active Protocol: Document 02/29/20 11:05 LRN (Rec: 02/29/20 12:40 LRN [id number]) PT Summary Assessment and Plan Potential Rehabilitation Potential Good Status of Condition at Evaluation Evolving Summary Impairments Pain,ROM,Strength,Sensation, Cognition,Bed Mobility, Transfers,Gait,Activity Tolerance Assessment Summary Pt is POD #1. Closed reduction and cannulated screw fixation of left subcapital femoral neck fracture. Pt had very low tolerance to activity with possible orthostatic hypotension response to supine to sit transfer. The pt was also unstable in her SpO2 needs, ranging from 84% to 91% with . 5 to 1.0 L O2 via n.c. The pt is pleasantly confused and is not following directions on LLE toe touch weight bearing precaution. Nursing is aware. It is expected that the pt will need SNF for rehab after DC. Goals Bed Mobility Goal Standby Assistance Transfer Goal Contact Guard Assistance, Minimal Assistance Gait Goal Minimal Assistance,Front Wheel Walker Gait Distance 50-75' Days to Meet Goals 3 Frequency of Treatment Frequency Of Treatment Twice a Day Treatment Plan Physical Therapy Treatment Plan Bed Mobility Training,Transfer Training,Gait Training, Therapeutic Exercise,Post Op Education,Hot or Cold Pack Recommendations To Nursing Amount of Assist Needed 2 Person Assist,PT/OT Assist Only Discharge Recommendations PT Discharge Recommendations SNF Rehab Equipment Needed for Home Before Will need walker if going home Discharge . Transportation Needs at Discharge Wheelchair/Cabulance
--- NOTE | 2020-02-29 11:57 | PC.NURSE ---
Addendum entered by Neema Guerrero R.N. 02/29/20 13:15: Resting quietly in bed with eyes closed. Respirations regular and unlabored. SpO2 on 0.5L was 95% asleep. Turned down to room air, cont pulse ox in place. Call light within reach, bed alarm on. Original Note: Shift summary: Resting quietly at beginning of shift. Oriented except exact date, but does seem to have periods of confusion (which her daughter reported yesterday is baseline for patient). Dressing to L hip C/D/I. PP+, cap refill <2 sec, sensation WNL. L foot is erythemic. Heels red, blanchable, floating both. Lungs with expiratory rhonchi, clears with cough. Weaned off O2 for a bit, but back on 1L after working with PT. Got to edge of bed with PT but reported dizziness immediately so we laid her back down, BP supine at that time 106/69 w/ HR 89. Denies chest pain or pressure. Tele monitoring ongoing. Able to make needs known and calls appropriately. Light and belonging within reach, bed alarm on.
[2020-02-29] MEDS: ALBUTEROL/IPRATROPIUM 3 ML AMPUL INH ×2 (14:34→19:32)
--- NOTE | 2020-02-29 15:15 | PT.IPTN ---
Current Diagnoses Unspecified intracapsular fracture of left femur, initial encounter for closed fracture (02/27/20) Surgery Performed Operation Date: 02/28/20 10:30 Actual Procedures p ORIF Hip/Cannulated Screws - Merrick Hinton MD Physical Therapy Treatment Note M2 PT-IP Current Condition Start: 02/29/20 09:08 Freq: NEEDED Status: Active Protocol: Document 02/29/20 15:15 LRN (Rec: 02/29/20 17:01 LRN [id number]) Physical Therapy Current Condition Current Condition Evaluation Date 02/29/20 Treatment Diagnosis Fell out of bed, L leg/hip/ groin pain. Onset Date 02/28/20 Precautions Other Precautions Wbing: See below Weight Bearing Status Weight Bearing Status Touch Down Weight Bearing M3 PT-IP Subjective Start: 02/29/20 09:08 Freq: NEEDED Status: Active Protocol: Document 02/29/20 15:15 LRN (Rec: 02/29/20 17:01 LRN [id number]) Subjective Physical Therapy Visit Type Type Treatment Note Visit Start Time 15:15 Visit Stop Time 15:35 Total Visit Minutes 20 Physical Therapy Visit Comments Patient Comments Pt agreeable to therapy. Reports nausea and light headed when positioned in upright position in bed. Patient Goals Pt goal is to return home. M4 PT-IP Mobility and Gait Start: 02/29/20 09:08 Freq: NEEDED Status: Active Protocol: Document 02/29/20 15:15 LRN (Rec: 02/29/20 17:01 LRN [id number]) PT-Transfer Assessment Comments Mobility Comments In bed: Semi-reclined - BP is 79/51' SpO2 is 93%. Upright in bed - BP is 91/56; SpO2 is 91%. After exercise in bed: Supine - BP is 100/63. Semi-reclined - BP is 96/59. Pt became nauseated with HOB elevated > ~45 deg's Discussed pt's BP with nursing and they requested only bed ex's for now. M5 PT-IP Objective Assessments Start: 02/29/20 09:08 Freq: NEEDED Status: Active Protocol: Document 02/29/20 11:05 LRN (Rec: 02/29/20 12:40 LRN [id number]) Orientation Orientation/Cognition Level of Alertness Confusional State Orientation Name,Age,Birthday Language Function Ability Garbled Speech Safety Awareness Decreased Safety Awareness Comments Pt is NOT following TTWB order . Pt was aware she fell off her bed but was unaware of her fracture. She thought she was in [place] at a intermediate. Gross Range of Motion Upper Extremity ROM Assessment Within Functional Limits Lower Extremity ROM Assessment Left Impaired Strength Upper Extremity Strength Assessment Within Functional Limits Lower Extremity Strength Assessment Left Impaired Sensation Assessment Sensation Gross Sensation Right LE Impaired,Left LE Impaired Light Touch Intact Comments Sensation Comments Pt is decreased in sensation in bilateral LE's. M6 PT-IP Treatment Start: 02/29/20 09:08 Freq: NEEDED Status: Active Protocol: Document 02/29/20 15:15 LRN (Rec: 02/29/20 17:01 LRN [id number]) Physical Therapy Treatment Exercises Exercises Ankle Pumps,Gluteal Sets,Quad Sets,Heel Slides,Supine Hip Abduction,Short Arc Quads Education Education Provided Weight Bearing Status Other Treatments Other Treatment Performed Pt assisted the LLE with ex's due to TTWB precautions. M7 PT-IP Assessment and Plan Start: 02/29/20 09:08 Freq: NEEDED Status: Active Protocol: Document 02/29/20 15:15 LRN (Rec: 02/29/20 17:01 LRN [id number]) PT Summary Assessment and Plan Summary Assessment Summary Pt is POD #2 following PM treatment. The pt is limited in activity tolerance due to low blood pressure and symptoms of orthostatic hypotension. The pt tolerated bed ex's well and did not attempt bridging with both legs to move around in bed. It is questionable of her understanding of her weight bearing precaution; therefore further education is needed. Goals Bed Mobility Goal Standby Assistance Transfer Goal Contact Guard Assistance, Minimal Assistance Gait Goal Minimal Assistance,Front Wheel Walker Gait Distance 50-75' Days to Meet Goals 3 Frequency of Treatment Frequency Of Treatment Twice a Day Treatment Plan Physical Therapy Treatment Plan Bed Mobility Training,Transfer Training,Gait Training, Therapeutic Exercise,Post Op Education,Hot or Cold Pack Other Recommendations and Next Treatment Educate pt on WBing precaution Focus . Monitor blood pressure with position changes. Recommendations To Nursing Amount of Assist Needed 2 Person Assist Discharge Recommendations PT Discharge Recommendations SNF Rehab Equipment Needed for Home Before Will need walker if going home Discharge . Transportation Needs at Discharge Wheelchair/Cabulance
--- NOTE | 2020-02-29 17:09 | PC.NURSE ---
Addendum entered by Pat Angela R.N. 02/29/20 21:51: Pt med at 2030 w. baclofen for discomfort. Dsg remains unchanged, HL intact/patent. Tele shows NSR per ICU staff. Call light w/in reach, bd alarm on for pt safety. Continue w/plan of care. Original Note: Pt watching TV Denies discomfort at this time. Lungs w/course sounds noted, SpO2 95% RA Has a loose cough. HL RAC intact/patent. Call light w/in reach, bed alarm on for pt safety.
[2020-02-29] MEDS: TRAMADOL 50 MG TABLET 100 MG PO (19:28)
[2020-02-29] MEDS: carvediloL 12.5 MG TABLET PO (20:22)
[2020-03-01] VITALS (19 sets, daily range): BP systolic 75–155; BP diastolic 45–82; PULSE 66–92; RESP 14–20; TEMP 36.4–36.8; O2SAT 14–99
--- NOTE | 2020-03-01 | DI.RAD.S_ITS ---
PROCEDURE: XR CHEST 1V INDICATIONS: tachypnea TECHNIQUE: One view of the chest was acquired. COMPARISON: [facility], CT, CT CHEST W CON, 06/17/2018, 10:15. [facility], CR, XR CHEST 1V, 02/27/2020, 13:15. [facility], CR, XR CHEST 1V, 02/28/2020, 10:49. [facility], CR, XR CHEST 1V, 03/01/2020, 2:05. FINDINGS: Surgical changes and devices: There is a cardiac pacemaker. Lungs and pleura: Chronic perihilar prominence appears stable. Left basilar atelectasis. No pleural effusions or pneumothorax. Mediastinum: Mediastinal contours appear normal. Heart size is normal. Mitral annular calcification. Bones and chest wall: No suspicious bony lesions. Overlying soft tissues appear unremarkable. IMPRESSION: 1. No acute cardiopulmonary disease. 2. Chronic perihilar prominence appears stable. Dictated by: Luis Cornejo M.D. on 03/01/2020 at 19:32 Approved by: Luis Cornejo M.D. on 03/01/2020 at 19:36
[2020-03-01] MEDS: MAGNESIUM OXIDE 400 MG TABLET PO (00:05)
--- NOTE | 2020-03-01 00:16 | PC.NURSE ---
Addendum entered by Marta Canseco R.N. 03/01/20 06:51: Fluid bolus complete and BP is 94/58. Oxygen was decreased earlier to 1L/min since sat was 99% and sat remains good at 97%. Addendum entered by Marta Canseco R.N. 03/01/20 06:37: Fluid bolus has been infusing for past 7 minutes and repeat BP now 94/54 so CDL A DRIVER changed amount IVF bolus to 250cc. IVF adjusted accordingly. Addendum entered by Marta Canseco R.N. 03/01/20 06:34: Has been sleeping past couple hours. Now awakened and very drowsy and minimally responsive verbally. BP 75/48 with automatic cuff and 82/50 with manual cuff. CBG 134. UOP 125cc. Freddy HEBERT, informed and new orders received. Addendum entered by Marta Canseco R.N. 03/01/20 02:05: Breath sounds are sounding moist in bases and having more congested sounding cough. Still unable to get O2 sat. ANUP Hayes, informed and here to see patient; see orders. Addendum entered by Marta Canseco R.N. 03/01/20 01:23: Continues with restlessness. Removing gown, pulling at IV, squirming in bed. When asked does say she is SOB. Medicated with Vicodin for FLACC of 5. RT contacted for neb Rx. Original Note: Patient very restless. Repetitively states I'm sorry. Denies pain but states legs feel restless. Oriented to self and birthdate but became obsessed with birthdate and kept repeating date even when other questions answered. Breath sounds coarse and O2 sat difficult to obtain due to coldness of extremities. At one point sat showing 77% so placed on oxygen at 2L/min per HFNC and next reading able to obtain was 96%. HRR; telemetry reading was SA. Denies nausea. BT present but has not had BM since 02/25; received Miralax + Colace yesterday. Indwelling catheter is patent but with minimal UOP at this time. Is moving self in bed. Dressing to left hip is CDI. Bilateral calf SCD's applied. Fall risk score is high and bed alarm is activated. Discussed restlessness with ANUP Hayes. Has already received Tylenol + Tramadol + Baclofen earlier; new order received for Mag Oxide which has now been administered. If continues to be restless will then try using Vicodin.
[2020-03-01] MEDS: HYDROCODONE/ACET 5/325 TABLET 1 TAB PO (01:19)
--- NOTE | 2020-03-01 01:57 | DI.RAD.S_ITS ---
PROCEDURE: XR CHEST 1V INDICATIONS: Shortness of breath, chest congestion TECHNIQUE: One view of the chest was acquired. COMPARISON: [facility], CR, XR CHEST 1V, 02/28/2020, 10:49. FINDINGS: Surgical changes and devices: None. Lungs and pleura: Lungs are clear. Right hilar prominence is redemonstrated. Interstitial prominence and cephalization of the pulmonary vasculature concerning for CHF. No pleural effusions or pneumothorax. Mediastinum: Mediastinal contours appear normal. Heart size is normal. Mitral annulus calcifications. Bones and chest wall: No suspicious bony lesions. Overlying soft tissues appear unremarkable. IMPRESSION: Cephalization of pulmonary vasculature and interstitial prominence compatible with CHF. Dictated by: Sue Messer MD, PhD on 03/01/2020 at 8:16 Approved by: Sue Messer MD, PhD on 03/01/2020 at 8:17
[2020-03-01 02:30] LABS: Add Manual Diff / Slide Review NO; Basophils Absolute Auto 100 /uL (0-100); Basophils Percent Auto 0.7 % (0-2); Eosinophils Absolute Auto 0 /uL (0-450); Eosinophils Percent Auto 0.3 % (2-4); Hemoglobin 8.4 g/dL (12.0-16.0); Lymphocytes Absolute Auto 1800 /uL (1100-4500); Lymphocytes Percent Auto 13.9 % (25-40); Mean Corpuscular HGB Conc 32.3 % (30-36); Mean Corpuscular Hemoglobin 26.2 PG (26-34); Monocytes Absolute Auto 1200 /uL (0-900); Monocytes Percent Auto 9.1 % (3-14); Neutrophils Absolute Auto 9800 /uL (1500-7000); Platelet Count 218 X10^3/uL (150-400); Red Blood Cell Count 3.21 X10^6/uL (4.0-5.2); Red Cell Distribution Width 14.1 % (11.6-14.8)
[2020-03-01 02:32] LABS: BUN Creatinine Ratio 27.4 (6-22); Blood Urea Nitrogen 34 mg/dL (7-17); Calcium 8.9 mg/dL (8.4-10.2); Carbon Dioxide 15 mmol/L (22-32); Chloride 104 mmol/L (98-107); Estimated Glomerular Filt Rate 41.8 mL/min (>60); Glucose 72 mg/dL (80-110); HEMOLYSIS < 15 (0-50); Magnesium 2.1 mg/dL (1.6-2.3); Sodium 135 mmol/L (137-145)
[2020-03-01 02:46] LABS: Troponin I 0.126 ng/mL (0.01-0.034)
[2020-03-01 02:48] LABS: Fractionated Inspired Oxygen 0.283; HCO3 ABG 13 mmol/L (22-26); Oxygen Saturation ABG 97 % (95-100); PCO2 ABG 24.1 mmHg (35-45); PO2 ABG 92 mmHg (80-100); TCO2 ABG 14 mmol/L (21-31); pH ABG 7.34 (7.35-7.45)
[2020-03-01] MEDS: DEXTROSE 5%-0.9% NS 1,000 ML 250 ML IV (02:58)
[2020-03-01] MEDS: SODIUM CHLORIDE 0.9% FLUSH 10 ML IV ×2 (02:58→22:22)
[2020-03-01] MEDS: SODIUM CHLORIDE 0.9% 1,000 ML 1000 ML IV (06:27)
--- NOTE | 2020-03-01 08:41 | P.PN_ITS ---
Subjective Subjective Date Patient Seen: 03/01/20 Time Patient Seen: 08:42 Interval history: Patient with moderate left hip pain as anticipated status post percutaneous pinning subcapital femoral neck fracture. Primary difficulty is today are medically related with significant hypotension and some confusion. Exam Vital Signs (past 8 hours): - 03/01/20 02:06 03/01/20 06:28 03/01/20 06:29 Temperature 97.5 F L Pulse Rate 79 66 Respiratory Rate 20 Blood Pressure 103/54 L 75/45 L 82/50 L Pulse Oximetry 99 03/01/20 06:37 03/01/20 06:51 03/01/20 08:00 Temperature 97.5 F L Pulse Rate 79 77 71 Respiratory Rate 14 Blood Pressure 94/54 L 94/58 L 123/62 Pulse Oximetry 96 Oxygen Delivery Method Room Air Oxygen Flow Rate 1 Narrative Exam Narrative: Dressing dry and intact distal neurovascular examination is intact. Objective Labs Result Diagrams: 03/01/20 02:10 03/01/20 02:10 Labs: Laboratory Results - last 24 hr 03/01/20 03/01/20 03/01/20 02:10 02:10 02:10 WBC 13.0 H RBC 3.21 L Hgb 8.4 L Hct 26.0 L MCV 81.0 MCH 26.2 MCHC 32.3 RDW 14.1 Plt Count 218 Neut % (Auto) 76.0 H Lymph % (Auto) 13.9 L [place] % (Auto) 9.1 Eos % (Auto) 0.3 L Baso % (Auto) 0.7 Neut # (Auto) 9800 H Lymph # (Auto) 1800 [place] # (Auto) 1200 H Eos # (Auto) 0 Baso # (Auto) 100 ABG pH ABG pCO2 ABG pO2 ABG HCO3 ABG Total CO2 ABG O2 Saturation ABG Base Excess FiO2 Sodium 135 L Potassium 5.0 Chloride 104 Carbon Dioxide 15 L BUN 34 H Creatinine 1.24 H Estimated GFR 41.8 L BUN/Creatinine Ratio 27.4 H Glucose 72 L Calcium 8.9 Magnesium 2.1 Troponin I 0.126 H* 03/01/20 02:35 WBC RBC Hgb Hct MCV MCH MCHC RDW Plt Count Neut % (Auto) Lymph % (Auto) [place] % (Auto) Eos % (Auto) Baso % (Auto) Neut # (Auto) Lymph # (Auto) [place] # (Auto) Eos # (Auto) Baso # (Auto) ABG pH 7.34 L ABG pCO2 24.1 L* ABG pO2 92 ABG HCO3 13 L ABG Total CO2 14 L ABG O2 Saturation 97 ABG Base Excess -13.0 L FiO2 0.283 Sodium Potassium Chloride Carbon Dioxide BUN Creatinine Estimated GFR BUN/Creatinine Ratio Glucose Calcium Magnesium Troponin I Assessment & Plan Post-op Postoperative Procedures: Procedures Operation Date: 02/28/20 10:30 Actual Procedures Side Surgeon p ORIF Hip/Cannulated Screws Merrick Hinton MD Postoperative day: 2 Postoperative status narrative: Postop day 2. Percutaneous cannulated screw fixation femoral neck fracture. No significant postop for PT due to confusion and hypotension. Postoperative plan: routine post-op care Postoperative plan narrative: Continue routine postoperative care primary care at this point is medical. Physical therapy when status allows partial weight- bearing left lower extremity. Discharge when stable and recommend routine wound check and repeat x-rays 2 weeks postop
[2020-03-01] MEDS: polyethylene glycoL 3350 17 GM POWD.PACK PO (08:52)
[2020-03-01] MEDS: ALBUTEROL 2.5 MG/3 ML NEB (ADULT) INH (09:43)
--- NOTE | 2020-03-01 10:00 | PT-IP ANOTE ---
Per nursing pt sleeping and this PIPING DESIGNER was asked to let her sleep. Will check back on pt in PM.
--- NOTE | 2020-03-01 10:33 | CM.DPC ---
DCP continued: Reviewed chart. Received verbal referral from provider indicating patient will need SNF for rehabilitation. Met with patient explained role. Patient very drowsy at time of visit. Patient provided CM team with permission to speak with daughter/Bernarda re: d/c plan. Placed call to Bernarda groves# [phone] she is aware and agreeable for patient to d/c to SNF for continued rehabilitation prior to returning home. First SNF choice is [facility]. Placed call to May and left requesting evaluation. Also asked INSPECTOR EXPERIMENTAL ASSEMBLY/Joana to fax to Caitlin Frias if second choice needed. Received return phone call from May at [facility] and she reports that they can accept but are requesting new COVID 19 test. Patient had one done as outpatient on 02-19-20 which was negative. Provided the above information to CM/Dietist Nusrat and Dr. Lai. P: Pending. Anticipate SNF when medically stable. HIGINIO Mitchell
[2020-03-01 11:33] LABS: Procalcitonin 0.23 ng/mL (<0.5)
[2020-03-01 11:54] LABS: Bacteria Urine None Seen; WBC Urine None Seen (0-5/HPF)
[2020-03-01 11:57] LABS: Appearance Urine UA CLEAR; Bilirubin Urine UA NEGATIVE (NEGATIVE); Color Urine UA YELLOW; Glucose Urine UA NEGATIVE (Negative); Ketones Urine UA NEGATIVE (NEGATIVE); Leukocyte Esterase Urine UA NEGATIVE (NEGATIVE); Nitrite Urine UA NEGATIVE (Negative); Occult Blood Urine UA 2+ (Negative); Protein Urine UA TRACE (Negative); Urobilinogen Urine UA 0.2 E.U./dL (0.2)
[2020-03-01 11:59] LABS: Culture Indicated Urine Cult Not Indicated; RBC Urine 5-10/HPF (0-5/HPF); Squamous Epithelial Cell Urine 1-5 /HPF (0-5/HPF)
--- NOTE | 2020-03-01 12:05 | PT.IPTN ---
Current Diagnoses Unspecified intracapsular fracture of left femur, initial encounter for closed fracture (02/27/20) Surgery Performed Operation Date: 02/28/20 10:30 Actual Procedures p ORIF Hip/Cannulated Screws - Merrick Hinton MD Physical Therapy Treatment Note M2 PT-IP Current Condition Start: 02/29/20 09:08 Freq: NEEDED Status: Active Protocol: Document 02/29/20 15:15 LRN (Rec: 02/29/20 17:01 LRN [id number]) Physical Therapy Current Condition Current Condition Evaluation Date 02/29/20 Treatment Diagnosis Fell out of bed, L leg/hip/ groin pain. Onset Date 02/28/20 Precautions Other Precautions Wbing: See below Weight Bearing Status Weight Bearing Status Touch Down Weight Bearing M3 PT-IP Subjective Start: 02/29/20 09:08 Freq: NEEDED Status: Active Protocol: Document 03/01/20 12:05 CLB (Rec: 03/01/20 14:02 CLB [id number]) Subjective Physical Therapy Visit Type Type Treatment Note Visit Start Time 12:05 Visit Stop Time 12:29 Total Visit Minutes 24 Notes Co-treat with OT Physical Therapy Visit Comments Patient Comments Pt aggitated and unable to follow directions. Unable to say if she was in pain. M4 PT-IP Mobility and Gait Start: 02/29/20 09:08 Freq: NEEDED Status: Active Protocol: Document 03/01/20 12:05 CLB (Rec: 03/01/20 14:02 CLB [id number]) PT-Bed Mobility Assessment Rolling Type of Rolling Log Rolling,Bilateral PT-Transfer Assessment Comments Mobility Comments Pt aggitated and was unable to follow directions and pt would not be able to comply with TTWB, pt was transferred to chair via jamal lift. SENIOR WEB SERVICES DEVELOPER attempted to have pt perform seated ther ex but pt was unable to follow single step directions. Pt left in recliner with alarm on, all needs within reach and OT in room. M5 PT-IP Objective Assessments Start: 02/29/20 09:08 Freq: NEEDED Status: Active Protocol: Document 02/29/20 11:05 LRN (Rec: 02/29/20 12:40 LRN [id number]) Orientation Orientation/Cognition Level of Alertness Confusional State Orientation Name,Age,Birthday Language Function Ability Garbled Speech Safety Awareness Decreased Safety Awareness Comments Pt is NOT following TTWB order . Pt was aware she fell off her bed but was unaware of her fracture. She thought she was in [place] at a fpc. Gross Range of Motion Upper Extremity ROM Assessment Within Functional Limits Lower Extremity ROM Assessment Left Impaired Strength Upper Extremity Strength Assessment Within Functional Limits Lower Extremity Strength Assessment Left Impaired Sensation Assessment Sensation Gross Sensation Right LE Impaired,Left LE Impaired Light Touch Intact Comments Sensation Comments Pt is decreased in sensation in bilateral LE's. M6 PT-IP Treatment Start: 02/29/20 09:08 Freq: NEEDED Status: Active Protocol: Document 03/01/20 12:05 CLB (Rec: 03/01/20 14:02 CLB [id number]) Physical Therapy Treatment Other Treatments Other Treatment Performed unable to perform ther ex due to aggition in bed. M7 PT-IP Assessment and Plan Start: 02/29/20 09:08 Freq: NEEDED Status: Active Protocol: Document 03/01/20 12:05 CLB (Rec: 03/01/20 14:02 CLB [id number]) PT Summary Assessment and Plan Summary Assessment Summary Pt aggitated trying to pull out lines and unable to follow directions was transferred to chair with jamal lift. Pt BP in semi-sitting in bed 107/47 AL 81, BP in supine 135/82 AL 84, sitting 147/74 HR 86. Goals Bed Mobility Goal Standby Assistance Transfer Goal Contact Guard Assistance, Minimal Assistance Gait Goal Minimal Assistance,Front Wheel Walker Gait Distance 50-75' Days to Meet Goals 3 Frequency of Treatment Frequency Of Treatment Twice a Day Treatment Plan Physical Therapy Treatment Plan Bed Mobility Training,Transfer Training,Gait Training, Therapeutic Exercise,Post Op Education,Hot or Cold Pack Other Recommendations and Next Treatment Educate pt on WBing precaution Focus . Monitor blood pressure with position changes. Recommendations To Nursing Amount of Assist Needed 2 Person Assist Discharge Recommendations PT Discharge Recommendations SNF Rehab Equipment Needed for Home Before Will need walker if going home Discharge . Transportation Needs at Discharge Wheelchair/Cabulance
--- NOTE | 2020-03-01 12:50 | OT.IP.EVAL ---
Current Diagnoses Unspecified intracapsular fracture of left femur, initial encounter for closed fracture (02/27/20) Surgery Performed Operation Date: 02/28/20 10:30 Actual Procedures p ORIF Hip/Cannulated Screws - Merrick Hinton MD Past Medical History (Last Updated 02/27/20 @ 21:14 by ANUP Randall) Anxiety (Chronic) Chronic viral hepatitis, unspecified (Chronic Unknown) COPD (chronic obstructive pulmonary disease) (Chronic Unknown) Coronary artery disease involving [place] coronary artery of [place] heart without angina pectoris (10/20/15) Decreased platelet count (Acute) Degenerative joint disease involving multiple joints (Chronic Unknown) Elevated liver enzymes (Acute) Essential hypertension (10/20/15) Essential tremor (11/29/16) Fatigue (Chronic) Fibromyalgia (Chronic Unknown) GERD (gastroesophageal reflux disease) (Chronic Unknown) Low back pain (Chronic) Malignant neoplasm of lower lobe of left lung (10/20/15) Migraines (Chronic Unknown) Mixed hyperlipidemia (10/20/15) Muscle spasm of both lower legs (Acute) Peripheral neuropathy (Chronic Unknown) Renal artery stenosis (Chronic Unknown) Sleep apnea (Chronic Unknown) Thoracic back pain (Chronic) Tobacco abuse (Acute) Vascular insufficiency (Chronic Unknown) Surgical History (Last Updated 02/27/20 @ 21:24 by ANUP Randall) History of bilateral carotid endarterectomy (Acute) History of cataract surgery (Acute) History of intravascular stent placement (Acute) History of permanent cardiac pacemaker placement (Resolved 10/2017) History of stent insertion of renal artery (Acute) Hx of appendectomy (Resolved Unknown) Hx of hysterectomy (Resolved Unknown) Hx of tonsillectomy (Resolved Unknown) Occupational Therapy Inpatient Evaluation/Re-Eval M1 PT/OT-IP Prior Functional Status Start: 02/29/20 09:08 Freq: NEEDED Status: Active Protocol: Document 03/01/20 12:50 PJM (Rec: 03/01/20 14:06 JENY [id number]) Medical Review Prior Functional Status Medical History Reviewed Yes Communication WFL per daughter but pt having memory problems over past several months Mobility and Gait Per daughter, pt ambulated with a cane, independently in the house. Pt used electric cart at grocery store. Activities of Daily Living and IADL's Per daughter, pt was independent with all self are including seated shower in tub shower combo. Daughter does all IADLS, driving. Prior Functional Level (Other details) Pt's daughter, Bernarda, lives with her. Social History Household Members children Living Arrangements Mobile home Number of Floors (Floors) One Floor Number of Stairs To Enter/Railing? 5 steps Home Environment Standard Height Toilet,Tub/ Shower Doors Home Equipment Straight Cane,Tub Transfer Bench Additional Social History Comment Pt reports recently losing her son. M2 OT-IP Current Condition Start: 03/01/20 11:23 Freq: Status: Active Protocol: Document 03/01/20 12:50 PJM (Rec: 03/01/20 14:06 PJ [id number]) Occupational Therapy Current Condition Current Condition Evaluation Date 03/01/20 Treatment Diagnosis decreased cognition, ADLS, mobility s/p Lhip fx s/p screw fixation Diagnosis Onset Date 02/28/20 Post Operative Precautions Other Precautions high fall risk, confusion, bed /chair alarm Weight Bearing Status Weight Bearing Status Touch Down Weight Bearing Allowed Weight Bearing Amount (enter % LLE or #) (%) M3 OT- IP Subjective and Pain Start: 03/01/20 11:23 Freq: Status: Active Protocol: Document 03/01/20 12:50 PJM (Rec: 03/01/20 14:06 PJM [id number]) OT- Subjective Occupational Therapy Visit Type Type Initial Evaluation Visit Start Time 12:04 Visit Stop Time 12:50 Total Visit Minutes 46 Occupational Therapy Visit Comments Patient/Caregiver Goals pt unable to participate in goal setting due to confusion OT Pain Assessment FLACC Pain Scale Face Occasional grimace/frown Legs Uneasy, restless, tense Activity Squirming,shifting Cry No cry (awake or asleep) Consolability Reassurable with touch FLACC Total 4 Location left hip Intensity 4 Scale Used Numeric (1 - 10) Description Aching,Acute M4 OT- IP ADL's Start: 03/01/20 11:23 Freq: Status: Active Protocol: Document 03/01/20 12:50 PJM (Rec: 03/01/20 14:06 PJ [id number]) OT [id number] General Evaluation Self-Feeding Ability Total Assistance Comments OT Self-Feeding Comments Pt demonstrating prolonged chewing of items and required assist to remove chewed carrot from R cheek; coughing on thin liquids. Discussed with RN and recommend S.T. swallowing assessment. Pt did grasp cup with B hands and drink from straw with hand over hand guiding OT ADL-Grooming General Evaluation Grooming Ability Total Assistance Comments OT Grooming Comments due to confusion OT ADL-Oral Care General Eval Oral Care Ability Total Assistance Devices Oral Care Devices Sponge/Foam Tipped Swab OT ADL-Dressing General Eval Upper Body Dressing Ability Total Assistance Lower Body Dressing Ability Total Assistance Comments OT Dressing Comments due to confusion and immobility from L hip fx OT ADL-Toileting General Evaluation Toileting Ability Total Assistance Areas Needing Assistance Empty Catheter or Colostomy OT ADL-Bathing Bathing Type Bathing Type Bed Bath General Evaluation Bathing Ability Total Assistance M5 OT- IP IADL's Start: 03/01/20 11:23 Freq: Status: Active Protocol: Document 03/01/20 12:50 PJM (Rec: 03/01/20 14:06 PJ [id number]) OT-Instrumental Activities of Daily Living Deficits IADL Deficits Identified Deficits Home Safety Awareness Awareness of Need for Assistance at Home Decreased Awareness Ability to Problem Solve Emergency Unable to Problem Solve Situations Home Safety Comments daughter was doing all IADLS at home Medication Management Medication Management Caregiver Administers Money Management Money Management Caregiver Provides Assistance Meal Preparation Meal Preparation Caregiver Provides Assist Battery Stacker Battery Stacker Caregiver Provides Assist Driving Driving Caregiver Provides Assist M6 OT- IP Functional Cognition Start: 03/01/20 11:23 Freq: Status: Active Protocol: Document 03/01/20 12:50 PJM (Rec: 03/01/20 14:06 PJ [id number]) Cognitive Factors Limiting Selfcare Function Cognitive Ability Level of Alertness Confusional State Attention Span Ability Unable to Focus,Unable to Sustain Attention Memory Description Immediate Impaired,Short Term Impaired,Intermediate Impaired Cognitive Comments Cognitive Assessment Comments Pt oriented to first name only . Speech garbled at times. Pt follows about 25% of commands with repetition, demo and context. OT- Vision and Hearing OT- Hearing Assessment OT- Hearing Assessment WFL OT- Vision Assessment Visual Acuity Glasses For Reading M7 OT- IP Mobility and Balance Start: 03/01/20 11:23 Freq: Status: Active Protocol: Document 03/01/20 12:50 PJM (Rec: 03/01/20 14:06 PJ [id number]) OT- Bed Mobility Assessment Rolling Level of Assistance Maximum Assistance,1 Person Assistance OT-Transfer Assessment Transfers Transfer Ability Total Assistance,2 Person Assistance Technique Transfer Technique Mechanical Lift Comments Mobility Comments Pt unbale to follow commands as needed to even try sit to stand with TTWB, so mechanical lift used. OT- Gait Assessment Comments Gait Ability Comments pt unable to ambulate due to confusion and TTWB restriction OT- Balance Assessment Sitting Balance and Reactions Static Sitting Balance Ability Poor M8 OT- IP Objective Assessments Start: 03/01/20 11:23 Freq: Status: Active Protocol: Document 03/01/20 12:50 PJM (Rec: 03/01/20 14:06 PJM [id number]) OT Gross Range of Motion Upper Extremity Range of Motion Assessment Within Functional Limits ROM Impairments by observation OT Strength Comments Strength Comments by observation, pt has at least antigravity strength in BUE with no obvious focal weakness OT- Coordination Assessment Comments Coordination Comments significantly impaired by confusion/apraxia, but does graps cup with straw with B hands OT-Muscle Tone Assessment Muscle Tone WNL Yes OT Sensation Assessment Edema Edema Absent M9 OT- IP Assessment and Plan Start: 03/01/20 11:23 Freq: Status: Active Protocol: Document 03/01/20 12:50 PJM (Rec: 03/01/20 14:06 PJM [id number]) OT Summary Assessment and Plan Potential Rehabilitation Potential Fair Analytic Complexity at Evaluation Low Summary OT Impairments Pain,Strength,Balance, Functional Cognition, Functional Mobility,Self- Feeding,Grooming,Dressing, Toileting,Bathing,Toilet Transfers,Shower Transfers, Activity Tolerance Assessment Summary Low complexity OT assessment completed on this 79 yr old female admitted after fall out of bed at home with L hip fx s/p screw fixation 02/28/20, now TTWB. Pt presents with significant post op confusion/ delirium and is currently oriented to self (first name only) with intermittently garbled speech and <25% command following this session. Pt was not safe to attempt sitting edge of bed or standing due to current cognitive status, so ceiling lift used for transfer to recliner during co tx with P.T. Note pt demonstrating prolonged chewing of solids, some pocketing in R cheek and coughing on thin liquids. Recommend S.T. swallow evaluation. Pt has severe performance deficits in functional cognition and all functional mobility and self care as described above. Pt will need SNF at d/c as she is far below her baseline level of function. Will provide OT services here to address the goals below. Goals Self-Feeding Goal Minimal Assistance Grooming Goal Minimal Assistance Dressing Goal Moderate Assistance Toileting Goal Moderate Assistance Bathing Goal Moderate Assistance Toilet Transfer Goal Moderate Assistance,Bedside Commode Days to Meet Goals 14 Frequency of Treatment Frequency Of Treatment Once a Day Treatment Plan OT Treatment Plan ADL Training,Functional Cognition Training,Functional Mobility,Patient/Family Education,Discharge Planning Discharge Recommendations OT Discharge Recommendations SNF Rehab Transportation Needs at Discharge Stretcher/Ambulance
[2020-03-01] MEDS: SODIUM CHLORIDE 0.9% 1,000 ML 75 ML IV ×2 (14:40→17:01)
--- NOTE | 2020-03-01 15:22 | P.PN_ITS ---
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 The patient is lying in bed comfortably. She is quite confused today likely due to administration of several pain medications including baclofen, hydrocodone and tramadol overnight. Her language is garbled but intermittently comprehensible. She is moving all of her extremities and has no focal neurological deficits. Plan to remove Griffin catheter as this is a nidus for infection, however, urinalysis does not appear grossly infected. Per patient's daughter the patient is intermittently confused and does well when the daughter is present. Plan to give low-dose Seroquel, discontinue pain medications and control pain with Tylenol only, and have a sitter overnight. Exam Vital Signs (past 8 hours): - 03/01/20 08:00 03/01/20 08:41 03/01/20 08:47 Temperature 97.5 F L Pulse Rate 71 78 Respiratory Rate 14 Blood Pressure 123/62 111/59 L Pulse Oximetry 96 97 94 03/01/20 08:55 03/01/20 08:59 03/01/20 09:23 Temperature Pulse Rate Respiratory Rate Blood Pressure Pulse Oximetry 94 93 92 03/01/20 09:55 03/01/20 11:12 03/01/20 11:15 Temperature 98.2 F Pulse Rate 73 83 80 Respiratory Rate 16 16 14 Blood Pressure 136/56 L 136/56 L Pulse Oximetry 97 95 93 Oxygen Delivery Method Room Air Oxygen Flow Rate 0 Narrative Exam Narrative: General: Elderly thin and frail appearing female lying in bed, appears older than stated age, patient is confused and intermittently answers questions with comprehensible response. HEENT: Normocephalic, atraumatic. External ears without defect. Pupils equal, round, and reactive to light. Anicteric sclerae, moist conjunctivae, and no lid lag. Oropharynx free of erythema and cobble stoning with dry oral mucosa. Neck: Supple with full range of motion. No lymphadenopathy or thyromegaly. Cardiovascular: Regular rate and rhythm without murmurs, rubs, or gallops appreciated. Pulmonary: Clear to auscultation bilaterally without crackles, wheezes, or rhonchi. Normal respiratory effort with no use of accessory muscles. Abdomen: Soft, bowel sounds present, nontender, nondistended. No hepatosplenomegaly or masses appreciated. Extremities: No clubbing, cyanosis, or edema. Left hip with dressing in place C/D/I without surrounding erythema or edema. Bilateral lower extremity venous stasis dermatitis. Skin: Normal temperature, turgor, and texture; no rash, ulcers, or subcutaneous nodules appreciated. Neurological: Cranial nerves grossly intact. Psychiatric: Alert and oriented to person only. Increased confusion likely due to pain medications. Objective Labs Result Diagrams: 03/01/20 02:10 03/02/20 06:31 Labs: Laboratory Results - last 24 hr 03/01/20 03/01/20 03/01/20 02:10 02:10 02:10 WBC 13.0 H RBC 3.21 L Hgb 8.4 L Hct 26.0 L MCV 81.0 MCH 26.2 MCHC 32.3 RDW 14.1 Plt Count 218 Neut % (Auto) 76.0 H Lymph % (Auto) 13.9 L Stevens % (Auto) 9.1 Eos % (Auto) 0.3 L Baso % (Auto) 0.7 Neut # (Auto) 9800 H Lymph # (Auto) 1800 Stevens # (Auto) 1200 H Eos # (Auto) 0 Baso # (Auto) 100 ABG pH ABG pCO2 ABG pO2 ABG HCO3 ABG Total CO2 ABG O2 Saturation ABG Base Excess FiO2 Sodium 135 L Potassium 5.0 Chloride 104 Carbon Dioxide 15 L BUN 34 H Creatinine 1.24 H Estimated GFR 41.8 L BUN/Creatinine Ratio 27.4 H Glucose 72 L Calcium 8.9 Magnesium 2.1 Troponin I 0.126 H* Procalcitonin Urine Color Urine Appearance Urine pH Ur Specific [place] Urine Protein Urine Glucose (UA) Urine Ketones Urine Occult Blood Urine Nitrate Urine Bilirubin Urine Urobilinogen Ur Leukocyte Esterase Urine RBC Urine WBC Ur Squamous Epith Cells Urine Bacteria Ur Culture Indicated? 03/01/20 03/01/20 03/01/20 02:10 02:35 11:50 WBC RBC Hgb Hct MCV MCH MCHC RDW Plt Count Neut % (Auto) Lymph % (Auto) Stevens % (Auto) Eos % (Auto) Baso % (Auto) Neut # (Auto) Lymph # (Auto) Stevens # (Auto) Eos # (Auto) Baso # (Auto) ABG pH 7.34 L ABG pCO2 24.1 L* ABG pO2 92 ABG HCO3 13 L ABG Total CO2 14 L ABG O2 Saturation 97 ABG Base Excess -13.0 L FiO2 0.283 Sodium Potassium Chloride Carbon Dioxide BUN Creatinine Estimated GFR BUN/Creatinine Ratio Glucose Calcium Magnesium Troponin I Procalcitonin 0.23 Urine Color Yellow Urine Appearance Clear Urine pH 5.0 Ur Specific [place] 1.020 Urine Protein Trace H Urine Glucose (UA) Negative Urine Ketones Negative Urine Occult Blood 2+ H Urine Nitrate Negative Urine Bilirubin Negative Urine Urobilinogen 0.2 Ur Leukocyte Esterase Negative Urine RBC 5-10/hpf H Urine WBC None seen Ur Squamous Epith Cells 1-5 /hpf Urine Bacteria None seen Ur Culture Indicated? Cult not indicated Assessment & Plan Assessment & Plan narrative: Zamzam Umanzor is a 79-year-old female with an extensive medical history including coronary artery disease, hypertension, hyperlipidemia, paroxysmal atrial fibrillation and previous DVT 25 years ago on aspirin, permanent pacemaker, peripheral vascular disease, COPD, obstructive sleep apnea, renal artery stenosis, left lower lobe squamous cell lung cancer status post chemotherapy and radiation in remission, neuropathy, GERD and migraines who presented to the ED after being found down for unknown amount of time by her family and found to have left hip fracture. 1. Acute left subcapital femoral neck fracture, status post percutaneous pining, present on admission. Active. -Patient sustained a ground level fall from her bed to the floor and presented after being down for unknown amount of time unable to ambulate with complaint of left groin pain. -Left hip x-ray demonstrated mildly displaced impacted subcapital femoral neck f racture. -Consulted orthopedic surgery, Dr. Hinton, who performed percutaneous pinning. Continue post-operative, pain and DVT prophylaxis per ortho. -Continue calcium and vit D3 supplementation. Patient will need to be evaluated and treated for osteoporosis as an outpatient per PCP. 2. Acute metabolic encephalopathy in setting of probable mild to moderate dementia versus mild cognitive impairment, present on admission. Active. -Patient's daughter reports that the patient is intermittently confused and does better when she is present. -Patient had increasing confusion today likely due to narcotic and nonnarcotic pain medications including hydrocodone, tramadol and baclofen. Discontinued hy drocodone, tramadol, and baclofen. -Continue to reorient often. Plan to have sitter overnight. -Ordered Seroquel 12.5 mg x 1. 3. Type 2 IA, with history of CAD, present on admission. Resolving. -Secondary to demand ischemia from hip fracture and possible GI bleed. -Patient endorsed chest pain and received nitropaste which was discontinued due to hypotension. -EKG demonstrated sinus rhythm with pathological Q-waves in inferior leads likely due to old IA. -Troponin peaked at 0.255 and trended down. -Echocardiogram had no significant change since previous exam and without focal wall motion abnormalities. -Continue aspirin 81 twice daily. 4. Acute on chronic hypoxemic respiratory failure, present on admission. Resolved. -Unclear etiology but most likely due to pain and splinting versus demand ischemia from type 2 IA versus recent pneumonia for which the patient was treated with Levaquin and ruled out for COVID 19 on 02/22/20. -History of left lower lobe squamous cell lung cancer status post chemotherapy and radiation in 2015 and currently thought to be in remission. Patient is f ollowed by [facility] oncology. -Patient currently smokes 0.5 pack per day. -Chest x-ray consistent with COPD with radiology interpretation of diffuse interstitial prominence lead to be pulmonary edema. -Arterial blood gas finds a pH of 7.37, pCO2 29.4, PO2 low at 47, bicarbonate at 17, base excess of -8 with oxygen saturation of 83%. -Continued supplemental oxygen to maintain oxygen saturations 88-92% and titrate off as tolerated. Patient currently off oxygen. 5. History of atrial fibrillation, likely paroxysmal and not on anticoagulation, present on admission. Stable. -EKG demonstrated sinus rhythm with a sinus arrhythmia and inverted T-waves laterally and inferior Q-waves. -Continue home aspirin 81 mg twice daily and carvedilol decreased from 12.5 mg to 3.125 mg twice daily due to intermittent hypotension. -Continue to monitor on telemetry. 6. Acute on chronic microcytic anemia, acute portion secondary to acute blood loss from GI bleed and hip fracture, present on admission. Active. -Patient report dark stools as well as epigastric pain. -Suspect small portion from acute hip fracture and other component either upper or lower GI bleeding. -Initial hemoglobin of 9.0. Baseline appears to be 13.0 to 14.0 in 07/2019. Repeat hemoglobin trended down but has stabilized. -Continue Protonix 40 mg daily. -Daughter reports that patient has not had a colonoscopy in 25 years. The patie nt has a GI specialist for her hepatitis C and recommend that she follow-up as an outpatient for possible EGD/colonoscopy as hemoglobin has stabilized. 7. Hypertension, chronic, present on admission. Stable. -Continue home carvedilol decreased from 12.5 mg twice daily and lisinopril 2.5 mg daily. 8. Hyperlipidemia, chronic, present on admission. Stable. -Continue home aspirin 81 mg twice daily and atorvastatin 40 mg daily at bedtime. 9. Peripheral vascular disease, present on admission. Stable. -Patient with decreased capillary refill at 3-4 seconds bilateral feet and stasis dermatitis of bilateral lower extremities. Patient also has a history of renal and subclavian stents. -Continue aspirin 81 mg twice daily and atorvastatin 40 mg daily at bedtime. 10. History of hepatitis C, present on admission. Stable -History of hepatitis C exposure on 12/30/2019. HCV antibody was reactive at 28.9 (cut off 1.0). No evidence of hepatomegaly and she does not consume alcohol. Patient has plan to start therapy for hepatitis C within the next month per her daughter. -Patient has a bilirubin of 0.5, AST minimally elevated at 43, ALT of 21 and alkaline phosphatase of 87, albumin is 4.1 and platelets are 186. Code status: FULL CODE. Patient is unable to confirm status will require clar ification with daughter. VTE prophylaxis: SCDs, chemical prophylaxis contraindicated with possible bleeding Disposition: Patient will likely discharge to long term facility in next 1-2 days for continued rehabilitation.
--- NOTE | 2020-03-01 15:59 | PC.NURSE ---
Shift summary: Late entry Patient very sedate for most of the morning, arousable to voice/touch but went quickly went back to sleep. See vitals as charted- BP WNL after bolus this morning and w/ ongoing IV fluids (this keno writer held morning dose of Coreg and Lisinopril r/t sedation and hypotension during the night). Weaned down to room air with sats maintained 90% or above awake and asleep. Was awakened at lunchtime and was transferred to chair (per order from Dr Lai to have up for meals) using jamal lift. PT/OT reported patient was too confused to safely follow directions for transfer with her toe-touch weight-bearing status. Once up to chair OT Alva sat with her and helped her with her lunch. See OT/PT notes. OT reported that patient was coughing with food and water intake- this keno writer reported to Dr Lai and received an order for [employer] LOT ATTENDANT mariah. When awake and in chair patient restless. Speech garbled at times, clear at others. Answered some questions appropriately, at other times didn't make a lot of sense. This keno writer did not give any pain meds today r/t sedation and previous agitation with narcotics. Circulation/sensation to BLE's WNL. Dressing to L hip dry/intact with shadow serous drainage. Griffin patent, UOP this shift 350 ml. UA collected and sent as ordered. Lungs coarse sounding at times with moist non-productive cough. Lungs CTA after having patient cough this morning. HRR, tele monitoring ongoing. Received order this afternoon to swab for COVID 19 to repeat test (SNF is requiring prior to transfer). Approx 1430 patient was jamal lifted back to bed and transported to room 222 to be placed in isolation while she's being ruled out. Patient settled into bed, IV fluids per orders, tele monitor on. All belongings moved to her new room. Report given to day shift RN Nelly as well as neetu shift oncoming ENEIDA Lu. Tabitha was made aware that the nasal swab for COVID 19 still needs to be collected and supplies are in the room. Call light in reach, bed alarm on.
[2020-03-01] MEDS: QUETIAPINE 25 MG TABLET 12.5 MG PO (17:00)
[2020-03-01] MEDS: CALCIUM CARB/VIT D3 500/200 TABLET 1 EACH PO (17:04)
[2020-03-01] MEDS: ALBUTEROL/IPRATROPIUM 3 ML AMPUL INH (18:54)
[2020-03-01 19:31] LABS: HCO3 ABG 15 mmol/L (22-26); Oxygen Saturation ABG 94 % (95-100); PCO2 ABG 23.1 mmHg (35-45); PO2 ABG 66 mmHg (80-100); TCO2 ABG 15 mmol/L (21-31); pH ABG 7.41 (7.35-7.45)
[2020-03-01 19:32] LABS: Fractionated Inspired Oxygen 28
--- NOTE | 2020-03-01 20:17 | PC.NURSE ---
Addendum entered by Tabitha Perez R.N. 03/01/20 22:23: Tele: NSR. Continue droplet precautions, pending COVID results. Sporadic weak, dry cough noted, unrelated to PO intake. SCD's in place. 1800 removal FC 165 ml, clear yellow urine. Bladder scan at 2200 with 11 ml. Will continue to monitor I/O closely. Original Note: Sarita shift note: 1600: Patient awake and active, responds to name only, does not know place, situation and . Does know daughters name, (Marcella). Spoke with Marcella via phone, patient awake and alert enough to engage on the phone, however, only repeating same phrase I love you I miss you. Seroquel PO administered as ordered per Dr. Lai, patient able to take medication adequately with cues to swallow. NO coughing or gurgling with PO med or water administered. Sitter at bedside, Candelaria ZENG. F/C removed without difficulty, 165 ml output upon removal, clear yellow. At approximately 1845 patient became increasing restless and noted with SOB at rest, tachypnea, and subclavicular retractions. Notified Dr. Lai regarding change in clinical status, increased restlessness, diffuse WH/CR to bases. Stat Chest XRY ordered, EKG, ABG, RT at bedside. IVF discontinued. CBG 138 mg/dl. Skin pale, warm, 2+ proximal pulses, weak distal pulses. Dr. Lai at bedside, aware of results. 191: Patient resting in bed, O2 sat 95% on RA. FlACC 0, body in relaxed position at rest during sleep. Surgical dressing to left upper lateral hip, CDI secured with Tegaderm. Spoke with both daughter and granddaughter Marcella and Rashmi regarding plan of care, including change of room to 222. Bed alarm active, TIRE ROOM SUPERVISOR at bedside providing hygiene care and safety.
[2020-03-02 00:30] VITALS: O2SAT 94
--- NOTE | 2020-03-02 04:03 | PC.NURSE ---
Addendum entered by Lesley Amaya R.N. 03/02/20 07:03: At 0535 notified installation coordinator hospitalist, Dr. Valdez of decrease UOP and received order for 500cc NS bolus. Pt continued to be restless and had increased saying ouch and was moaning, PRN APAP suppository given. Addendum entered by Lesley Amaya R.N. 03/02/20 05:39: AT 0530 pt had not voided this shift, bladder scan done. Pt had 88cc urine per scan. Due to restlessness lab was unable to get labs drawn this am. Original Note: NOC Note: Pt is restless with short episodes that she is at rest. Occ says ouch with movement but is not responding to staff when she is spoken to and is not making eye contact. Pt has removed her gown and pushes off her blankets. Drsg to hip is CDI.
[2020-03-02] MEDS: SODIUM CHLORIDE 0.9% 500 ML 1000 ML IV (05:59)
[2020-03-02] MEDS: ACETAMINOPHEN 650 MG SUPP PR ×2 (06:35→10:43)
[2020-03-02 06:47] LABS: Albumin 3.7 g/dL (3.5-5.0); Albumin Globulin Ratio 0.9 (1.0-2.8); Alkaline Phosphatase 173 U/L (38-126); Aspartate Aminotransferase 430 IU/L (14-36); BUN Creatinine Ratio 39.3 (6-22); Bilirubin Total 1.2 mg/dL (0.2-1.3); Blood Urea Nitrogen 44 mg/dL (7-17); Calcium 9.3 mg/dL (8.4-10.2); Carbon Dioxide 12 mmol/L (22-32); Chloride 110 mmol/L (98-107); Globulin 3.9 g/dL (1.7-4.1); Glucose 97 mg/dL (80-110); HEMOLYSIS 30 (0-50); Sodium 138 mmol/L (137-145); Total Protein 7.6 g/dL (6.3-8.2)
[2020-03-02 06:48] LABS: Potassium 5.5 mmol/L (3.4-5.1)
[2020-03-02 06:54] LABS: Alanine Aminotransferase 199 IU/L (<35)
[2020-03-02 06:57] LABS: Magnesium 2.4 mg/dL (1.6-2.3)
[2020-03-02] MEDS: FUROSEMIDE 20 MG/2 ML VIAL IV (07:53)
[2020-03-02] MEDS: HALOPERIDOL 5 MG/ML VIAL 1 MG IV (08:14)
[2020-03-02 08:15] VITALS: BP 153/84; PULSE 83; RESP 24; TEMP 35.6
[2020-03-02 09:19] VITALS: PULSE 82; O2SAT 94
[2020-03-02] MEDS: ALBUTEROL/IPRATROPIUM 3 ML AMPUL INH (09:19)
--- NOTE | 2020-03-02 09:36 | PM.HP.1 ---
History of Present Illness History of Present Illness Chief complaint: fell out of bed, left leg/hip/groin pain Patient History Medical History (Updated 02/27/20 @ 21:16 by ANUP Randall) Anxiety (Chronic) Chronic viral hepatitis, unspecified (Chronic Unknown) COPD (chronic obstructive pulmonary disease) (Chronic Unknown) Coronary artery disease involving [place] coronary artery of [place] heart without angina pectoris (10/20/15) Decreased platelet count (Acute) Degenerative joint disease involving multiple joints (Chronic Unknown) Elevated liver enzymes (Acute) Essential hypertension (10/20/15) Essential tremor (11/29/16) Fatigue (Chronic) Fibromyalgia (Chronic Unknown) GERD (gastroesophageal reflux disease) (Chronic Unknown) Low back pain (Chronic) Malignant neoplasm of lower lobe of left lung (10/20/15) Migraines (Chronic Unknown) Mixed hyperlipidemia (10/20/15) Muscle spasm of both lower legs (Acute) Peripheral neuropathy (Chronic Unknown) Renal artery stenosis (Chronic Unknown) Sleep apnea (Chronic Unknown) Thoracic back pain (Chronic) Tobacco abuse (Acute) Vascular insufficiency (Chronic Unknown) Surgical History (Updated 02/27/20 @ 21:24 by ANUP Randall) History of bilateral carotid endarterectomy (Acute) History of cataract surgery (Acute) History of intravascular stent placement (Acute) History of permanent cardiac pacemaker placement (Resolved 10/2017) History of stent insertion of renal artery (Acute) Hx of appendectomy (Resolved Unknown) Hx of hysterectomy (Resolved Unknown) Hx of tonsillectomy (Resolved Unknown) Family & Social History Family History Father Cancer Social History: Family history unavailable Yes: History unavailable due to cognitive impairment household members children Prior Living Arrangements Mobile home Safety & Behavioral: Feels Safe in Current Yes Environment Suicidal Ideation Description None Suicide Plan Description No Plan Tobacco & Substance use: Smoking Status Current every day smoker Smoking packs per day 0.5 alcohol intake never Meds Home Medications and Allergies Home Medications Medication Instructions Recorded Confirmed Type carvedilol [Coreg] 12.5 mg PO BID #180 tab 08/13/17 02/19/20 Rx aspirin 81 mg tablet,delayed 81 mg PO BID tab 03/03/19 02/19/20 History release lisinopril 2.5 mg tablet 2.5 mg PO DAILY #0 tab 03/03/19 02/19/20 History omeprazole 20 mg capsule,delayed 20 mg PO QDAY #90 cap 09/29/19 02/29/20 Rx release primidone 50 mg tablet 50 mg PO Q DAY #90 tab 12/17/19 02/19/20 Rx multivitamin 1 tab PO DAILY 12/30/19 02/19/20 History albuterol sulfate 90 mcg/actuation 2 inhalation INHALATION Q4-6H PRN 02/19/20 02/19/20 Rx aerosol inhaler #8 gram atorvastatin 40 mg PO BEDTIME 02/27/20 02/27/20 History Allergies Allergy/AdvReac Type Severity Reaction Status Date / Time Penicillins [PENICILLINS] Allergy Severe RASH, SOB Verified 02/19/20 08:55 Sulfa (Sulfonamide Allergy Severe SOB Verified 02/19/20 08:55 Antibiotics) [SULFA (SULFONAMIDE ANTIBIOTICS)] Exam Vital Signs (past 8 hours): - 03/02/20 08:15 03/02/20 09:19 Temperature 96.1 F L Pulse Rate 83 82 Respiratory Rate 24 Blood Pressure 153/84 H Pulse Oximetry 94 Oxygen Delivery Method Room Air Oxygen Flow Rate 0 Objective Labs Result Diagrams: 03/01/20 02:10 03/02/20 06:31 Labs: Laboratory Results - last 24 hr 03/01/20 03/01/20 03/01/20 02:10 11:50 19:08 ABG pH 7.41 ABG pCO2 23.1 L* ABG pO2 66 L ABG HCO3 15 L ABG Total CO2 15 L ABG O2 Saturation 94 L ABG Base Excess -10.0 L FiO2 28 Sodium Potassium Chloride Carbon Dioxide BUN Creatinine Estimated GFR BUN/Creatinine Ratio Glucose Calcium Magnesium Total Bilirubin AST ALT Alkaline Phosphatase Total Protein Albumin Globulin Albumin/Globulin Ratio Procalcitonin 0.23 Urine Color Yellow Urine Appearance Clear Urine pH 5.0 Ur Specific [place] 1.020 Urine Protein Trace H Urine Glucose (UA) Negative Urine Ketones Negative Urine Occult Blood 2+ H Urine Nitrate Negative Urine Bilirubin Negative Urine Urobilinogen 0.2 Ur Leukocyte Esterase Negative Urine RBC 5-10/hpf H Urine WBC None seen Ur Squamous Epith Cells 1-5 /hpf Urine Bacteria None seen Ur Culture Indicated? Cult not indicated 03/02/20 03/02/20 06:31 06:31 ABG pH ABG pCO2 ABG pO2 ABG HCO3 ABG Total CO2 ABG O2 Saturation ABG Base Excess FiO2 Sodium 138 Potassium 5.5 H Chloride 110 H Carbon Dioxide 12 L BUN 44 H Creatinine 1.12 H Estimated GFR 47.0 L BUN/Creatinine Ratio 39.3 H Glucose 97 Calcium 9.3 Magnesium 2.4 H Total Bilirubin 1.2 AST 430 H ALT 199 H Alkaline Phosphatase 173 H D Total Protein 7.6 Albumin 3.7 Globulin 3.9 Albumin/Globulin Ratio 0.9 L Procalcitonin Urine Color Urine Appearance Urine pH Ur Specific [place] Urine Protein Urine Glucose (UA) Urine Ketones Urine Occult Blood Urine Nitrate Urine Bilirubin Urine Urobilinogen Ur Leukocyte Esterase Urine RBC Urine WBC Ur Squamous Epith Cells Urine Bacteria Ur Culture Indicated?
--- NOTE | 2020-03-02 09:37 | P.PN_ITS ---
Subjective Subjective Date Patient Seen: 03/02/20 Interval history: Patient is lying in bed and delirious. She is moaning but when asked if she is in pain she responds no. She is alert oriented to person only. She does not answers questions readily, constantly moans and when she does answer questions it is not clear if her answers are meaningful. She has upper airway rhonchi but her lung exam is clear. Received diuresis early this morning for high potassium and little UOP. Chest x-ray does not demonstrate any acute process. Urinalysis does not appear infected. WBC is increasing possibly due to stress response of the body. Consulted Palliative Care to discuss the patient's goals of care and code status. Please see separate note from Susan HEBERT. The patient's david guy Parmar and DPOA has decided to withdraw care and make the patient palliative care only and she would like to take her home with hospice as soon as available. Exam Vital Signs (past 8 hours): - 03/02/20 08:15 03/02/20 09:19 Temperature 96.1 F L Pulse Rate 83 82 Respiratory Rate 24 Blood Pressure 153/84 H Pulse Oximetry 94 Oxygen Delivery Method Room Air Oxygen Flow Rate 0 Narrative Exam Narrative: General: Elderly thin and frail appearing female lying in bed, appears older than stated age, patient is confused, agitated, intermittently responds to questions with yes and no and responses do not appear to be appropriate, moaning continually. HEENT: Normocephalic, atraumatic. External ears without defect. Pupils equal, round, and reactive to light. Anicteric sclerae, moist conjunctivae, and no lid lag. Neck: Supple with full range of motion. No lymphadenopathy or thyromegaly. Cardiovascular: Regular rate and rhythm without murmurs, rubs, or gallops appreciated. Pulmonary: Clear to auscultation bilaterally with upper airway rhonchi no crackles or wheezes. Normal respiratory effort with no use of accessory muscles. Abdomen: Soft, scaphoid, bowel sounds present, nontender, nondistended. No hepatosplenomegaly or masses appreciated. Extremities: No clubbing, cyanosis, or edema. Left hip with dressing in place C/D/I without surrounding erythema or edema. Skin: Normal temperature, turgor, and texture; no rash, ulcers, or subcutaneous nodules appreciated. Neurological: Cranial nerves grossly intact. Psychiatric: Alert and oriented to person only. Objective Labs Result Diagrams: 03/02/20 09:40 03/02/20 06:31 Labs: Laboratory Results - last 24 hr 03/01/20 03/01/20 03/01/20 02:10 11:50 19:08 ABG pH 7.41 ABG pCO2 23.1 L* ABG pO2 66 L ABG HCO3 15 L ABG Total CO2 15 L ABG O2 Saturation 94 L ABG Base Excess -10.0 L FiO2 28 Sodium Potassium Chloride Carbon Dioxide BUN Creatinine Estimated GFR BUN/Creatinine Ratio Glucose Calcium Magnesium Total Bilirubin AST ALT Alkaline Phosphatase Total Protein Albumin Globulin Albumin/Globulin Ratio Procalcitonin 0.23 Urine Color Yellow Urine Appearance Clear Urine pH 5.0 Ur Specific [place] 1.020 Urine Protein Trace H Urine Glucose (UA) Negative Urine Ketones Negative Urine Occult Blood 2+ H Urine Nitrate Negative Urine Bilirubin Negative Urine Urobilinogen 0.2 Ur Leukocyte Esterase Negative Urine RBC 5-10/hpf H Urine WBC None seen Ur Squamous Epith Cells 1-5 /hpf Urine Bacteria None seen Ur Culture Indicated? Cult not indicated 03/02/20 03/02/20 06:31 06:31 ABG pH ABG pCO2 ABG pO2 ABG HCO3 ABG Total CO2 ABG O2 Saturation ABG Base Excess FiO2 Sodium 138 Potassium 5.5 H Chloride 110 H Carbon Dioxide 12 L BUN 44 H Creatinine 1.12 H Estimated GFR 47.0 L BUN/Creatinine Ratio 39.3 H Glucose 97 Calcium 9.3 Magnesium 2.4 H Total Bilirubin 1.2 AST 430 H ALT 199 H Alkaline Phosphatase 173 H D Total Protein 7.6 Albumin 3.7 Globulin 3.9 Albumin/Globulin Ratio 0.9 L Procalcitonin Urine Color Urine Appearance Urine pH Ur Specific [place] Urine Protein Urine Glucose (UA) Urine Ketones Urine Occult Blood Urine Nitrate Urine Bilirubin Urine Urobilinogen Ur Leukocyte Esterase Urine RBC Urine WBC Ur Squamous Epith Cells Urine Bacteria Ur Culture Indicated? 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 1. Palliative care. -Patient appears to have multiorgan dysfunction including: Brain, liver, heart, GI and kidney. -Ordered comfort care medications including: Morphine IV and sublingual, lorazepam IV in sublingual, ondansetron, atropine, and scopolamine. -Consider replacing Griffin catheter for comfort. -Consulted Palliative Care to discuss the patient's goals of care and code status. Please see separate note from Susan HEBERT. The patient's daughter Bernarda Parmar and DPOA has decided to withdraw care and make the patient palliative care only and she would like to take her home with hospice as soon as available. 2. Acute left subcapital femoral neck fracture, status post percutaneous pining, present on admission. Active. -Patient sustained a ground level fall from her bed to the floor and presented after being down for unknown amount of time unable to ambulate with complaint of left groin pain. -Left hip x-ray demonstrated mildly displaced impacted subcapital femoral neck fracture. -Consulted orthopedic surgery, Dr. Hinton, who performed percutaneous pinning. Continued post-operative, pain and DVT prophylaxis per ortho. Patient is now palliative care only as above. 3. Acute metabolic encephalopathy in setting of probable mild to moderate dementia versus mild cognitive impairment, present on admission. Active. -Patient's daughter reports that the patient is intermittently confused and does better when she is present. -Patient had increasing confusion today likely due to narcotic and nonnarcotic pain medications including hydrocodone, tramadol and baclofen. Discontinued hydrocodone, tramadol, and baclofen. -Received Seroquel 12.5 mg x 1 and Haldol 1 mg IV x1 without significant improvement in metabolic encephalopathy. -Continued to reorient often. Patient is now palliative care only as above. 4. Type 2 CT, with history of CAD, present on admission. Resolving. -Secondary to demand ischemia from hip fracture and possible GI bleed. -Patient endorsed chest pain and received nitropaste which was discontinued due to hypotension. -EKG demonstrated sinus rhythm with pathological Q-waves in inferior leads likely due to old CT. -Troponin peaked at 0.255 and trended down. -Echocardiogram had no significant change since previous exam and without focal wall motion abnormalities. -Discontinued aspirin 81 twice daily as patient is palliative care only. 5. Acute on chronic hypoxemic respiratory failure, present on admission. Resolved. -Unclear etiology but most likely due to pain and splinting versus demand ischemia from type 2 CT versus recent pneumonia for which the patient was treate d with Levaquin and ruled out for COVID 19 on 02/22/20. -History of left lower lobe squamous cell lung cancer status post chemotherapy and radiation in 2015 and currently thought to be in remission. Patient is followed by [facility] oncology. -Patient currently smokes 0.5 pack per day. -Chest x-ray consistent with COPD with radiology interpretation of diffuse interstitial prominence lead to be pulmonary edema. -Arterial blood gas finds a pH of 7.37, pCO2 29.4, PO2 low at 47, bicarbonate at 17, base excess of -8 with oxygen saturation of 83%. -Continued supplemental oxygen to maintain oxygen saturations 88-92% and titrate off as tolerated. Patient currently off oxygen. 6. History of atrial fibrillation, likely paroxysmal and not on anticoagulation, present on admission. Stable. -EKG demonstrated sinus rhythm with a sinus arrhythmia and inverted T-waves laterally and inferior Q-waves. -Discontinued home aspirin 81 mg twice daily and carvedilol as patient is now palliative care only. 7. Acute on chronic microcytic anemia, acute portion secondary to acute blood loss from GI bleed and hip fracture, present on admission. Active. -Patient report dark stools as well as epigastric pain. -Suspect small portion from acute hip fracture and other component either upper or lower GI bleeding. -Initial hemoglobin of 9.0. Baseline appears to be 13.0 to 14.0 in 07/2019. Repeat hemoglobin stable and likely slightly hemoconcentrated. -discontinued Protonix 40 mg daily as patient as patient is now comfort care only. -Daughter reports that patient has not had a colonoscopy in 25 years. The pat tamika has a GI specialist for her hepatitis C. 8. Hypertension, chronic, present on admission. Stable. -Discontinued home carvedilol decreased from 12.5 mg twice daily and lisinopril 2.5 mg daily as patient is now palliative care. 9. Hyperlipidemia, chronic, present on admission. Stable. -Discontinued aspirin 81 mg twice daily and atorvastatin 40 mg daily at bedtime as patient is now palliative care. 10. Peripheral vascular disease, present on admission. Stable. -Patient with decreased capillary refill at 3-4 seconds bilateral feet and stasis dermatitis of bilateral lower extremities. Patient also has a history of renal and subclavian stents. -Discontinued aspirin 81 mg twice daily and atorvastatin 40 mg daily at bedtime as patient is now palliative care. 11. History of hepatitis C with transaminitis, present on admission. Stable -History of hepatitis C exposure on 12/30/2019. HCV antibody was reactive at 28.9 (cut off 1.0). No evidence of hepatomegaly and she does not consume a lcohol. Patient had plan to start therapy for hepatitis C within the next month per her daughter. -Initial LFTs: bilirubin of 0.5, AST minimally elevated at 43, ALT of 21 and alkaline phosphatase of 87, albumin is 4.1 and platelets are 186. Repeat LFTs trending up with bilirubin 1.2, AST 430, ALT 199, alkaline phosphatase 173. Code status: DNR/DNI VTE prophylaxis: None Disposition: Patient will likely discharge home on hospice versus in hospital.
--- NOTE | 2020-03-02 09:45 | OT.IP.TRT ---
Current Diagnoses Unspecified intracapsular fracture of left femur, initial encounter for closed fracture (02/27/20) Surgery Performed Operation Date: 02/28/20 10:30 Actual Procedures p ORIF Hip/Cannulated Screws - Merrick Hinton MD Occupational Therapy Treatment Note M2 OT-IP Current Condition Start: 03/01/20 11:23 Freq: Status: Active Protocol: Document 03/01/20 12:50 PJM (Rec: 03/01/20 14:06 PJM [id number]) Occupational Therapy Current Condition Current Condition Evaluation Date 03/01/20 Treatment Diagnosis decreased cognition, ADLS, mobility s/p L hip fx s/p screw fixation Diagnosis Onset Date 02/28/20 Post Operative Precautions Other Precautions high fall risk, confusion, bed /chair alarm Weight Bearing Status Weight Bearing Status Touch Down Weight Bearing Allowed Weight Bearing Amount (enter % LLE or #) (%) M3 OT- IP Subjective and Pain Start: 03/01/20 11:23 Freq: Status: Active Protocol: Document 03/02/20 09:45 PJM (Rec: 03/02/20 15:49 PJM [id number]) OT- Subjective Occupational Therapy Visit Type Type Administrative Note Visit Start Time 09:40 Visit Stop Time 09:45 Total Visit Minutes 5 Notes Attempted to see pt but she was unable to follow any commands, very restless in bed and repeatedly pulling off gown. No purposeful grasp of washcloth placed in hand even with hand over hand guiding to face. Pt unable to participate this session due to cognitive status. No charge.
[2020-03-02 09:50] LABS: Add Manual Diff / Slide Review NO; Basophils Absolute Auto 100 /uL (0-100); Basophils Percent Auto 0.4 % (0-2); Eosinophils Absolute Auto 0 /uL (0-450); Eosinophils Percent Auto 0.1 % (2-4); Hematocrit 29.1 % (36-46); Hemoglobin 9.1 g/dL (12.0-16.0); Lymphocytes Absolute Auto 1100 /uL (1100-4500); Lymphocytes Percent Auto 7.3 % (25-40); Mean Corpuscular HGB Conc 31.3 % (30-36); Mean Corpuscular Hemoglobin 25.8 PG (26-34); Mean Corpuscular Volume 82.5 fL (80-100); Monocytes Absolute Auto 1400 /uL (0-900); Monocytes Percent Auto 9.3 % (3-14); Neutrophils Absolute Auto 12100 /uL (1500-7000); Neutrophils Percent Auto 82.9 % (50-75); Platelet Count 262 X10^3/uL (150-400); Red Blood Cell Count 3.52 X10^6/uL (4.0-5.2); Red Cell Distribution Width 14.5 % (11.6-14.8); White Blood Cell Count 14.7 X10^3/uL (4.5-11.0)
[2020-03-02 10:00] LABS: Ammonia (NH3) < 9 umol/L (9-30)
--- NOTE | 2020-03-02 10:13 | PC.NURSE ---
Addendum entered by Nelly Cage R.N. 03/02/20 14:51: Patient had an xl incontinence of urine. Bladder scanned for 620 after for pvr. is aware of this and would like to have her void on her own. is going to put patient back on ivf, D5NS at 60cc/hr. She also put her on a different iv antibiotic and will start lovenox and bs q 6 Original Note: Patient given 1mg of haldol and somewhat helpful. Patient was trying to crawl out of bed earlier. Medication not given as she has been sleeping, is aware of this. She was given 20mg of iv lasix too. Patient has not voided yet this morning. Waiting to see if she will void after lasix, if not she will need to have a lin catheter placed. She will not keep her clothes on or her brief, and she pulls at her tele leads. Will ask if we can d/c this.
--- NOTE | 2020-03-02 10:42 | PC.NURSE ---
Clarified order for continuous cardiac monitoring d/t pt continues to remove pleat patternmaker and is not being continuously monitored. Orders received to d/c telemetry.
[2020-03-02] MEDS: CEFTRIAXONE 2 GM/50 ML FROZ.PIGGY IV (11:08)
[2020-03-02 11:19] LABS: Procalcitonin 0.71 ng/mL (<0.5)
--- NOTE | 2020-03-02 11:42 | PM.PNPO.1 ---
Subjective Subjective Date Patient Seen: 03/02/20 Time Patient Seen: 11:42 Interval history: Postop day 3 percutaneous pinning left femoral neck fracture. The hip doing reasonably well but patient having significant medical problems including delirium and possible UTI. Exam Vital Signs (past 8 hours): - 03/02/20 08:15 03/02/20 09:19 Temperature 96.1 F L Pulse Rate 83 82 Respiratory Rate 24 Blood Pressure 153/84 H Pulse Oximetry 94 Oxygen Delivery Method Room Air Oxygen Flow Rate 0 Narrative Exam Narrative: Dressing dry and intact distal neurovascular examination is grossly intact Objective Labs Result Diagrams: 03/02/20 09:40 03/02/20 06:31 Labs: Laboratory Results - last 24 hr 03/01/20 03/01/20 03/02/20 11:50 19:08 06:31 WBC RBC Hgb Hct MCV MCH MCHC RDW Plt Count Neut % (Auto) Lymph % (Auto) [place] % (Auto) Eos % (Auto) Baso % (Auto) Neut # (Auto) Lymph # (Auto) [place] # (Auto) Eos # (Auto) Baso # (Auto) ABG pH 7.41 ABG pCO2 23.1 L* ABG pO2 66 L ABG HCO3 15 L ABG Total CO2 15 L ABG O2 Saturation 94 L ABG Base Excess -10.0 L FiO2 28 Sodium Potassium Chloride Carbon Dioxide BUN Creatinine Estimated GFR BUN/Creatinine Ratio Glucose Calcium Magnesium 2.4 H Total Bilirubin AST ALT Alkaline Phosphatase Ammonia Total Protein Albumin Globulin Albumin/Globulin Ratio Procalcitonin Urine Color Yellow Urine Appearance Clear Urine pH 5.0 Ur Specific [place] 1.020 Urine Protein Trace H Urine Glucose (UA) Negative Urine Ketones Negative Urine Occult Blood 2+ H Urine Nitrate Negative Urine Bilirubin Negative Urine Urobilinogen 0.2 Ur Leukocyte Esterase Negative Urine RBC 5-10/hpf H Urine WBC None seen Ur Squamous Epith Cells 1-5 /hpf Urine Bacteria None seen Ur Culture Indicated? Cult not indicated 03/02/20 03/02/20 03/02/20 06:31 09:40 09:40 WBC 14.7 H RBC 3.52 L Hgb 9.1 L Hct 29.1 L MCV 82.5 MCH 25.8 L MCHC 31.3 RDW 14.5 Plt Count 262 Neut % (Auto) 82.9 H Lymph % (Auto) 7.3 L [place] % (Auto) 9.3 Eos % (Auto) 0.1 L Baso % (Auto) 0.4 Neut # (Auto) 53628 H Lymph # (Auto) 1100 [place] # (Auto) 1400 H Eos # (Auto) 0 Baso # (Auto) 100 ABG pH ABG pCO2 ABG pO2 ABG HCO3 ABG Total CO2 ABG O2 Saturation ABG Base Excess FiO2 Sodium 138 Potassium 5.5 H Chloride 110 H Carbon Dioxide 12 L BUN 44 H Creatinine 1.12 H Estimated GFR 47.0 L BUN/Creatinine Ratio 39.3 H Glucose 97 Calcium 9.3 Magnesium Total Bilirubin 1.2 AST 430 H ALT 199 H Alkaline Phosphatase 173 H D Ammonia < 9 L Total Protein 7.6 Albumin 3.7 Globulin 3.9 Albumin/Globulin Ratio 0.9 L Procalcitonin Urine Color Urine Appearance Urine pH Ur Specific [place] Urine Protein Urine Glucose (UA) Urine Ketones Urine Occult Blood Urine Nitrate Urine Bilirubin Urine Urobilinogen Ur Leukocyte Esterase Urine RBC Urine WBC Ur Squamous Epith Cells Urine Bacteria Ur Culture Indicated? 03/02/20 09:40 WBC RBC Hgb Hct MCV MCH MCHC RDW Plt Count Neut % (Auto) Lymph % (Auto) [place] % (Auto) Eos % (Auto) Baso % (Auto) Neut # (Auto) Lymph # (Auto) [place] # (Auto) Eos # (Auto) Baso # (Auto) ABG pH ABG pCO2 ABG pO2 ABG HCO3 ABG Total CO2 ABG O2 Saturation ABG Base Excess FiO2 Sodium Potassium Chloride Carbon Dioxide BUN Creatinine Estimated GFR BUN/Creatinine Ratio Glucose Calcium Magnesium Total Bilirubin AST ALT Alkaline Phosphatase Ammonia Total Protein Albumin Globulin Albumin/Globulin Ratio Procalcitonin 0.71 H Urine Color Urine Appearance Urine pH Ur Specific [place] Urine Protein Urine Glucose (UA) Urine Ketones Urine Occult Blood Urine Nitrate Urine Bilirubin Urine Urobilinogen Ur Leukocyte Esterase Urine RBC Urine WBC Ur Squamous Epith Cells Urine Bacteria Ur Culture Indicated? Assessment & Plan Post-op Postoperative Procedures: Procedures Operation Date: 02/28/20 10:30 Actual Procedures Side Surgeon p ORIF Hip/Cannulated Screws Merrick Hinton MD Postoperative day: 3 Postoperative status narrative: No pain issues with the left hip but significant postoperative medical issues. Delirium, possible cardiac issues, possible UTI. Postoperative plan narrative: Continued hospitalization due to medical issues. Orthopedic issue stable for the time being. Were recommend toe-touch weight-bearing on the left follow-up x-rays in 7-10 days.
[2020-03-02 12:00] VITALS: BP 145/86; PULSE 83; RESP 24; TEMP 36
[2020-03-02] MEDS: DEXTROSE 5%-0.9% NS 1,000 ML 60 ML IV (15:18)
[2020-03-02 15:20] VITALS: BP 143/82; PULSE 91; RESP 24; TEMP 36.4
[2020-03-02] MEDS: ENOXAPARIN 30 MG/0.3 ML SYRINGE SUBCUT (15:25)
[2020-03-02] MEDS: CEFEPIME 2 GM in SODIUM CHLORIDE 0.9% 100 ML 200 ML IV (15:33)
--- NOTE | 2020-03-02 16:02 | CM.DPC ---
Spoke to patient's daughter about post discharge wishes. Ideally she'd like to take her home with HH... no preference. She's fine with SNF too for rehab. [facility] if possible but will accept anywhere but [facility]. Daughter is a EMBROIDERY PATTERNMAKER so is comfortable providing her mom with care at home as long as it's safe.
--- NOTE | 2020-03-02 16:24 | PT-IP ANOTE ---
PT was attempted this am with OT for dual treatment, however the patient was too confused and not able to participate.
[2020-03-02] MEDS: MORPHINE 2 MG/ML INJ 1 MG IV ×2 (17:46→18:59)
[2020-03-02] MEDS: SCOPOLAMINE 1 PATCH TOP (17:46)
[2020-03-02] MEDS: LORazepam 2 MG/ML INJ 0.25 MG IV ×2 (19:56→23:51)
[2020-03-02] MEDS: SODIUM CHLORIDE 0.9% FLUSH 10 ML IV (19:56)
--- NOTE | 2020-03-02 22:18 | PC.NURSE ---
restless 2210 IV ativan administered around 1999 with improvement noted, pt was able to sleep some. pt becomes restless again for brief change and although improved is unable to return to sleep. Daughter remains at bedside with good interaction noted between her and pt. will provide medication as available/needed.
[2020-03-02] MEDS: MORPHINE 2 MG/ML INJ 0.5 MG IV (23:05)
[2020-03-02 23:42] VITALS: RESP 12
[2020-03-03] MEDS: MORPHINE 2 MG/ML INJ 0.5 MG IV ×3 (02:28→06:09)
[2020-03-03 04:28] VITALS: RESP 12
[2020-03-03] MEDS: LORazepam 2 MG/ML INJ 0.25 MG IV (05:55)
--- NOTE | 2020-03-03 06:33 | PC.NURSE ---
Patient is unresponsive to verbal stimulus, localizes to tactile stimulus. LS: coarse rhonchi throughout, scope patch on. Unable to get pulse ox, patient does not keep NC on. BLE dusky, cool to the touch, weak pulses. Very restless tonight, order changed for Morphine and Ativan to q2. IV site very tenuous, patient pulling at site, wrapped in coban, flushed at 0610. Patient naked per family request, difficulty keeping brief or pullup on patient as she removes both and reaches down to her angelo area, incontinent. Per MD prog note patient is comfort care.
[2020-03-03 08:00] VITALS: BP 189/113; PULSE 91; RESP 19; TEMP 36.7
[2020-03-03 08:53] LABS: COVID19 Sendout Not Detected
[2020-03-03 09:20] VITALS: PULSE 60; RESP 22; O2SAT 90
[2020-03-03] MEDS: ALBUTEROL 2.5 MG/3 ML NEB (ADULT) INH (09:20)
--- NOTE | 2020-03-03 09:45 | OT.IP.TRT ---
Current Diagnoses Unspecified intracapsular fracture of left femur, initial encounter for closed fracture (02/27/20) Surgery Performed Operation Date: 02/28/20 10:30 Actual Procedures p ORIF Hip/Cannulated Screws - Merrick Hinton MD Occupational Therapy Treatment Note M2 OT-IP Current Condition Start: 03/01/20 11:23 Freq: Status: Active Protocol: Document 03/01/20 12:50 PJM (Rec: 03/01/20 14:06 PJM [id number]) Occupational Therapy Current Condition Current Condition Evaluation Date 03/01/20 Treatment Diagnosis decreased cognition, ADLS, mobility s/p Lhip fx s/p screw fixation Diagnosis Onset Date 02/28/20 Post Operative Precautions Other Precautions high fall risk, confusion, bed /chair alarm Weight Bearing Status Weight Bearing Status Touch Down Weight Bearing Allowed Weight Bearing Amount (enter % LLE or #) (%) M3 OT- IP Subjective and Pain Start: 03/01/20 11:23 Freq: Status: Active Protocol: Document 03/03/20 09:45 PJM (Rec: 03/03/20 11:57 PJM [id number]) OT- Subjective Occupational Therapy Visit Type Type Administrative Note Visit Start Time 09:45 Notes Per chart notes, pt is now comfort care and will d/c home with hospice possibly today. OT to sign off.
--- NOTE | 2020-03-03 10:00 | PT-IP ANOTE ---
As of 03/03/20 the patient is on comfort care and will be going home with hospice. DC PT at this time
--- NOTE | 2020-03-03 10:16 | P.PN_ITS ---
Subjective Subjective Date Patient Seen: 03/03/20 Time Patient Seen: 10:16 Interval history: Postop day 4 CRPP left femoral neck with Dr. Hinton--the patient has multiple medical complications including delirium UTI and has been determined a palliative care with her family in hospitalist team. Plan on discharge to hospice today. Exam Vital Signs (past 8 hours): - 03/03/20 04:28 03/03/20 08:00 03/03/20 09:20 Temperature 98.1 F Pulse Rate 91 H 60 Respiratory Rate 12 19 22 Blood Pressure 189/113 H Pulse Oximetry 90 L Oxygen Delivery Method Nasal Cannula Oxygen Flow Rate 0 Narrative Exam Narrative: Lying in bed on her side moving all extremities. Left leg dress ing clean no other exam possible due to patient condition. Family at bedside Objective Labs Result Diagrams: 03/02/20 09:40 03/02/20 06:31 Labs: Laboratory Results - last 24 hr 03/01/20 03/02/20 16:19 09:40 Procalcitonin 0.71 H COVID-19 PCR Not detected Assessment & Plan Post-op Postoperative Procedures: Procedures Operation Date: 02/28/20 10:30 Actual Procedures Side Surgeon p ORIF Hip/Cannulated Screws Merrick Hinton MD Postop day 4 CRPP left femoral neck fracture. Will be discharged to hospice. No further care follow-up required. Quality VTE Deep Vein Thrombosis/Pulmonary Embolism Present on Admission: No
[2020-03-03] MEDS: MORPHINE 10 MG/0.5 ML ORAL SYRINGE 5 MG PO (12:58)
[2020-03-03] MEDS: LORazepam 2 MG/ML ORAL SOL 0.25 MG SL ×2 (12:59→17:31)
--- NOTE | 2020-03-03 13:22 | CM.DPNOTE ---
DCP Cont Working on coordination of DCP throughout the AM. Dr Lai indicates pt could DC home w/her family and Hospice today if plan in place Dtamber Naranjo in ; confirms she wants to take pt home w/Hospice service, no agency preference, and requests a hospital bed be in place before pt's DC, their living room/house is ready for hospital bed. Ashley Naranjo requests the cheapest way to get her home if possible Placed call to both [facility] and [facility]; heard back from Kirti at [facility] first w/ good availability for start of care Spoke w/ANUP Roldan, [facility] this afternoon to review plan; Susan has been working w/ ashley Perkins and w/ ROMAN Floyd Referral Chief Nurse Executive P# [phone], throughout the morning. The plan now is to get patient home w/her family this afternoon via BLS; -[facility] has been confirmed for start of care tomorrow AM between [phone] -Waiting to hear from [facility] re: possibility of STAT delivery of hospital bed this afternoon/evening -BLS has now been rescheduled three times; it is now arranged for 1800 this evening Gave information for [facility] P# [phone] to ENEIDA Pal in case the BLS needs to be cancelled/rescheduled. Ashley Naranjo remains aware and agreeable to plan; ANUP Roldan is here this afternoon to continue supportive efforts and continue coordination of plan HIGINIO Hilario
--- NOTE | 2020-03-03 15:21 | P.DS_ITS ---
History of Present Illness History of Present Illness Date Patient Seen: 02/27/20 Chief complaint: fell out of bed, left leg/hip/groin pain Narrative: Written by Kevin HEBERT: Ms. Zamzam Randall is a 79-year-old female with an extensive medical history including coronary artery disease with a previous diagnosis of atrial fibrillation and status post permanent pacemaker insertion, peripheral vascular disease, COPD, hypertension, hyperlipidemia, obstructive sleep apnea, renal artery stenosis history of left lower squamous cell lung cancer status post ch emotherapy and radiation in remission, neuropathy, GERD and migraines with a history of DVT 25 years ago who presents to the ER after being found down by family this morning. The patient presents to the ER with a chief complaint of left groin pain. The patient is a poor historian providing conflicting information stating she had fallen out of her bed to the floor but was able to get back into bed. The family states they found the patient on the floor. Timing of the fall is unclear with family reporting the fall was last night and the patient stating her fall was 2 days ago. Patient has associated complaints of headache and neck pain. She is incapable of providing subjective information is she is restless and agitated at time of admission. According to subjective evaluation completed in the ER the patient has had sweats but no fevers or chills gas with complaining of headache but denies nasal congestion or sore throat. She denied chest pain or palpitations has had a dry cough that is described as deep and rattling. The patient was seen by her primary care [phone] having had 1 and half weeks of worsening shortness of breath, subjective fevers and cough and was started on 1 week course of Levaquin. The patient has had no complaints of nausea or vomiting, no abdominal pain, diarrhea constipation no urinary symptoms. Upon arrival to the ER the patient is afebrile with a temperature 98.4? with heart rate of 82, blood pressure of 125/66, respirations 14 saturating 98% on room air. A chest x-ray is obtained which finds diffuse interstitial prominence believed to be pulmonary edema, images consistent with COPD with normal heart size, dual lead permanent pacemaker. An x-ray of the left hip finds an impacted subcapital femoral neck fracture that is minimally displaced. Imaging of the C- spine finds no acute injury and L-spine identifies levoscoliosis with L from 4- 5-S1 degenerative joint disease without acute injury. CT of the head finds no acute intracranial processes, chronic periventricular and deep white matter at small-vessel ischemic changes. On laboratory analysis the patient has elevated white count at 12.8, hemoglobin of 9.0 and hematocrit of 27.5 and platelets of 168. Her electrolytes are within normal range and has a BUN of 14 and creatinine is 0.68. Her nonfasting glucose is 154. She has a total bilirubin of 0.5, AST of 43, ALT of 21 alkaline phosphatase of 87. She has a total CK of 137 with an MB of 3.87 and index of 2.8%. Her troponin is 0.22 with a BNP of 6220. ABGs obtained finding a pH of 7.37, pCO2 of 29.4, PO2 of 47 and bicarb of 17 with a base excess of -8 saturation is 83%. Dr. Hinton was consulted through the ER for evaluation hip fracture in has agreed to consult. In the ER the patient received albuterol MDI and nebulizer treatments, Lasix 20 mg IV and morphine for pain. The patient had increased agitation following morphine administration and was given Haldol. The patient is admitted to the medicine service for ground level fall resulting in left hip fracture. Discharge Providers Provider Date of admission: 02/27/20 17:34 Discharge Date: 03/03/20 Primary care physician: ANUP Jordan Consults: 02/28/20 16:05 Consult to Discharge Planning Routine Comment: Consult to Physical Therapy Evaluate & Treat Comment: Physician Instructions: post op ALPHONSE protocol 03/01/20 08:41 Consult to Physician Routine Comment: Consulting Provider: Merrick Hinton Reason for consultation: assessment of femur neck fractue 03/01/20 09:52 Consult to Occupational Therapy Evaluate & Treat Comment: Physician Instructions: Evaluate and treat 03/01/20 11:16 Consult to Physical Therapy Evaluate & Treat Comment: Physician Instructions: Evaluate and Treat 03/02/20 14:40 Consult to Palliative Care Urgent Comment: Consulting Provider: Susan England Discharge provider: Brandi Lai DO Summary Hospital Course Hospital Course: Zamzam Umanzor is a 79-year-old female with an extensive medical history i ncluding coronary artery disease, hypertension, hyperlipidemia, paroxysmal atrial fibrillation and previous DVT 25 years ago on aspirin, permanent pacemaker, peripheral vascular disease, COPD, obstructive sleep apnea, renal artery stenosis, left lower lobe squamous cell lung cancer status post chem otherapy and radiation in remission, neuropathy, GERD and migraines who presented to the ED after being found down for unknown amount of time by her family and found to have left hip fracture. 1. Palliative care. -Patient appears to have multi-organ dysfunction including: Brain, liver, heart, GI and kidney. -Ordered comfort care medications including: Morphine IV and sublingual, lorazepam IV in sublingual, ondansetron, atropine, and scopolamine. -Consider replacing Griffin catheter for comfort. -Consulted Palliative Care to discuss the patient's goals of care and code status. Please see separate note from Susan HEBERT. The patient's daughter Bernarda Parmar and DPOA has decided to withdraw care and make the patient palliative care only and she would like to take her home with hospice which will open tomorrow 03/04/20. 2. Acute left subcapital femoral neck fracture, status post percutaneous pining, present on admission. Active. -Patient sustained a ground level fall from her bed to the floor and presented after being down for unknown amount of time unable to ambulate with complaint of left groin pain. -Left hip x-ray demonstrated mildly displaced impacted subcapital femoral neck fracture. -Consulted orthopedic surgery, Dr. Hinton, who performed percutaneous pinning. Continued post-operative, pain and DVT prophylaxis per ortho. Patient is now palliative care only as above. 3. Acute metabolic encephalopathy in setting of probable mild to moderate dementia versus mild cognitive impairment, present on admission. Active. -Patient's daughter reports that the patient is intermittently confused and does better when she is present. -Patient had increasing confusion today likely due to narcotic and nonnarcotic pain medications including hydrocodone, tramadol and baclofen. Discontinued hydrocodone, tramadol, and baclofen. -Received Seroquel 12.5 mg x 1 and Haldol 1 mg IV x1 without significant improvement in metabolic encephalopathy. -Continued to reorient often. Patient is now palliative care only as above. 4. Type 2 NC, with history of CAD, present on admission. Resolving. -Secondary to demand ischemia from hip fracture and possible GI bleed. -Patient endorsed chest pain and received nitropaste which was discontinued due to hypotension. -EKG demonstrated sinus rhythm with pathological Q-waves in inferior leads likely due to old NC. -Troponin peaked at 0.255 and trended down. -Echocardiogram had no significant change since previous exam and without focal wall motion abnormalities. -Discontinued aspirin 81 twice daily as patient is palliative care only. 5. Acute on chronic hypoxemic respiratory failure, present on admission. Resolved. -Unclear etiology but most likely due to pain and splinting versus demand ischemia from type 2 NC versus recent pneumonia for which the patient was treated with Levaquin and ruled out for COVID 19 on 02/22/20. -History of left lower lobe squamous cell lung cancer status post chemotherapy and radiation in 2014 and currently thought to be in remission. Patient is followed by [facility] oncology. -Patient currently smokes 0.5 pack per day. -Chest x-ray consistent with COPD with radiology interpretation of diffuse interstitial prominence lead to be pulmonary edema. -Arterial blood gas finds a pH of 7.37, pCO2 29.4, PO2 low at 47, bicarbonate at 17, base excess of -8 with oxygen saturation of 83%. -Continued supplemental oxygen to maintain oxygen saturations 88-92% and titrate off as tolerated. Patient currently off oxygen. 6. History of atrial fibrillation, likely paroxysmal and not on anticoagulation, present on admission. Stable. -EKG demonstrated sinus rhythm with a sinus arrhythmia and inverted T-waves laterally and inferior Q-waves. -Discontinued home aspirin 81 mg twice daily and carvedilol as patient is now palliative care only. 7. Acute on chronic microcytic anemia, acute portion secondary to acute blood loss from GI bleed and hip fracture, present on admission. Active. -Patient report dark stools as well as epigastric pain. -Suspect small portion from acute hip fracture and other component either upper or lower GI bleeding. -Initial hemoglobin of 9.0. Baseline appears to be 13.0 to 14.0 in 07/2019. Repeat hemoglobin stable and likely slightly hemoconcentrated. -discontinued Protonix 40 mg daily as patient as patient is now comfort care only. -Daughter reports that patient has not had a colonoscopy in 25 years. The patient has a GI specialist for her hepatitis C. 8. Hypertension, chronic, present on admission. Stable. -Discontinued home carvedilol decreased from 12.5 mg twice daily and lisinopril 2.5 mg daily as patient is now palliative care. 9. Hyperlipidemia, chronic, present on admission. Stable. -Discontinued aspirin 81 mg twice daily and atorvastatin 40 mg daily at bedtime as patient is now palliative care. 10. Peripheral vascular disease, present on admission. Active. -Patient with decreased capillary refill at 3-4 seconds bilateral feet and stasis dermatitis of bilateral lower extremities. Patient also has a history of renal and subclavian stents. -Discontinued aspirin 81 mg twice daily and atorvastatin 40 mg daily at bedtime as patient is now palliative care. 11. History of hepatitis C with transaminitis, present on admission. Active. -History of hepatitis C exposure on 12/30/2019. HCV antibody was reactive at 28.9 (cut off 1.0). No evidence of hepatomegaly and she does not consume alcohol. Patient had plan to start therapy for hepatitis C within the next month per her daughter. -Initial LFTs: bilirubin of 0.5, AST minimally elevated at 43, ALT of 21 and alkaline phosphatase of 87, albumin is 4.1 and platelets are 186. Repeat LFTs tr ending up with bilirubin 1.2, AST 430, ALT 199, alkaline phosphatase 173. Exam Vital Signs (past 8 hours): - 03/03/20 08:00 03/03/20 09:20 Temperature 98.1 F Pulse Rate 91 H 60 Respiratory Rate 19 22 Blood Pressure 189/113 H Pulse Oximetry 90 L Oxygen Delivery Method Nasal Cannula Oxygen Flow Rate 0 Narrative Exam Narrative: General: Elderly thin, frail, emaciated female lying in bed, appears older than stated age, obtunded and comatose. HEENT: Normocephalic, atraumatic. External ears without defect. Cardiovascular: Regular rate and rhythm without murmurs, rubs, or gallops appreciated. Pulmonary: Clear to auscultation bilaterally with upper airway rhonchi no crackles or wheezes. Normal respiratory effort with no use of accessory muscles. Abdomen: Soft, scaphoid, bowel sounds present, nontender, nondistended. No hepatosplenomegaly or masses appreciated. Extremities: No clubbing, cyanosis, or edema. Left hip with dressing in place C/D/I without surrounding erythema or edema. Skin: Mottled. Hands and feet are cyanotic. Objective Labs Result Diagrams: 03/02/20 09:40 03/02/20 06:31 Labs: Laboratory Results - last 24 hr 03/01/20 16:19 COVID-19 PCR Not detected Discharge Plan Discharge Plan Patient Disposition: Hospice - Home Discharge comment: You will have hospital bed dropped off this evening and hospice will open tomorrow morning. If you have any questions or concerns please call [facility]. Discharge orders & Medications Prescriptions: New acetaminophen 650 mg Suppository 650 mg SC Q6HR PRN (Reason: Fever/Mild Pain (1-3)) Qty: 10 RF: 0 atropine 1 % Drops 2 drop sublingual Q2HR PRN (Reason: Secretions) Qty: 5 RF: 0 lorazepam [Lorazepam Intensol] 2 mg/mL Concentrate 0.25 mg sublingual Q2H PRN (Reason: Anxiety) Qty: 30 RF: 0 scopolamine base [Transderm-Scop] 1 mg over 3 days Patch 3 Day 1 patch topical Q72H PRN (Reason: secretions) Qty: 5 RF: 0 morphine 20 mg/5 mL (4 mg/mL) solution 5 mg PO Q1H PRN (Reason: pain, agitation, air hunger) Qty: 100 RF: 0 Discontinued albuterol sulfate 90 mcg/actuation HFA aerosol inhaler 2 inhalation INHALATION Q4-6H PRN (Reason: shortness of breath or wheezing) Qty: 8 RF: 1 aspirin [Adult Aspirin Regimen] 81 mg tablet,delayed release (DR/EC) 81 mg PO BID RF: 0 carvedilol [Coreg] 12.5 MG tablet 12.5 mg PO BID Qty: 180 RF: 3 lisinopril 2.5 mg tablet 2.5 mg PO DAILY Qty: 0 RF: 0 omeprazole 20 mg capsule,delayed release(DR/EC) 20 mg PO QDAY Qty: 90 RF: 1 primidone [Mysoline] 50 mg tablet 50 mg PO Q DAY Qty: 90 RF: 1 multivitamin Tablet 1 tab PO DAILY RF: 0 Hold Instructions: active hep c atorvastatin 40 mg tablet 40 mg PO BEDTIME RF: 0 Follow up/Referrals: Jose Raul Zarate ARNP [Primary Care Provider] - Diet/Activity/Treatments Catheter: 2-way Griffin Visit Report/Discharge Packet Instructions: End of Life Care, Lorazepam, Morphine Visit Report Forms: Patient Portal/API, Stroke Signs & Symptoms Discharge Data Primary Care Provider: Jose Raul Zarate Discharges patient from system. Discharge Date/Time: 03/03/20 17:50 Quality VTE Deep Vein Thrombosis/Pulmonary Embolism Present on Admission: No
--- NOTE | 2020-03-03 16:52 | PC.NURSE ---
Addendum entered by Ginny Crews R.N. 03/03/20 17:54: administered 0.25mg of ativan. pt started flaying around her arms. unresponsive. belonging with family. Original Note: pt laying in bed sleeping and comfortable. Daughter at bedside. Discharge instruction provided to daughter. meds returned to daughter. all belongings in bedroom. lin patent. catheter care instruction provided to daughter.
--- NOTE | 2020-03-04 10:39 | P.CONS_ITS ---
History of Present Illness Consult details Date Patient Seen: 03/02/20 Time Patient Seen: 15:00 Chief complaint: fell out of bed, left leg/hip/groin pain Reason for consult: Palliative medicine consultation Requesting provider: Brandi Lai Narrative: Reason for consultation: Palliative medicine consultation received from Dr. Lai regarding Ms. Zamzam Umanzor, a 79-year-old female, who was found down on the floor the morning of presentation (02/27/2020) by her daughter, with whom she resides. It is unclear from ED notes how long the patient was on the floor, conflicting information from patient and family members. EMS was activated and she was found to have c/o groin pain and associated c/o MARTÍNEZ and neck pain. She was brought to the ED for further evaluation and was noted to be confused and agitated at that time. CXR revealed diffuse interstitial prominence consistent with pulmonary edema and COPD. X-ray of the left hip revealing of subcapital femoral neck fracture, minimally displaced. C-spine imaging found no acute injury and L-spine identifies levoscoliosis with L from 4-5-S1 degenerative joint disease without acute injury. CT of the negative for acute intracranial processes, though chronic periventricular and deep white matter at small-vessel ischemic changes are noted. Laboratory analysis noted elevated white count (12.8), low hemoglobin of 9.0 and hematocrit of 27.5, and platelets of 168. Her electrolytes were within normal range, and BUN of 14 and creatinine is 0.68. Dr. Hinton was consulted through the ER for evaluation hip fracture. Optimized tr eatment in ED included albuterol MDI and nebulizer treatments, Lasix 20 mg IV and morphine for pain. She unfortunately experienced increased confusion and agitation following morphine administration and was given a dose of Haldol. The patient is admitted to the medicine service for ground level fall resulting in left hip fracture. She underwent percutaneous cannulated screw fixation of left femoral neck fracture (02/28/2020) and was admit to the medical floor for convelescence. Unfortunately, she has become increasingly delirious, especially reactive to opiate analgesia and refractory to first and second generation antipsychotics. Additionally, patient has sustained an NSTEMI and has developed atrial fibrillation; this is complicated by her anemia and concerns that she may have developed a slow GIB, which precludes anticoagulation. She is not eating and is unable to take her routine medications, in her delirium. The medical team seeks palliative medicine assistance in ascertaining the patient's wishes regarding aggressive treatment, as she is failing and the options for treatment are not without significant burden. Past Medical History: Patient has an extensive past medical history including coronary artery disease with a previous diagnosis of atrial fibrillation and status post permanent pacemaker insertion, peripheral vascular disease, COPD, hypertension, hyperlipidemia, obstructive sleep apnea, renal artery stenosis. She also has a history of left lower squamous cell lung cancer status post chemotherapy and radiation in remission, neuropathy, GERD and migraines with a history of DVT 25 years ago. Social History: Patient is . She and her had three children, two predeceased her. She lives in [place] with her daughter Marcella and her son in law. She has 6 grandchildren and multiple great grandchildren. Marcella reports she takes care of me now. 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 She enjoys playing board games, doing puzzles, watching TV, and loves to read. She is very proud of her weight gain since finishing chemotherapy for her lung cancer. Marcella reports her mother was very active with a rollator type walker at home, and is very proud of her [employer] membership. Marcella states that she is her mother's DPAHC and that they completed a Living Will approximately 10 years ago with the patient's primary provider. This was before the patient was diagnosed with lung cancer. Marcella states this document delineates her desire to be resuscitated and placed on life support for one month. She explains her mother's wish to be maintained for a month, and if not significantly improved, to withdraw care. Attending physician has requested palliative medicine to assist in furthering conversation with patient and family regarding the complex and sensitive medical issues of the perceived benefits/burdens of continued life prolonging treatments, realistic prognosis, perspectives on and dying, priority in clinical care and burden of physical, emotional and spiritual symptoms for patient and family. I have reviewed the medical record, radiographs, diagnostics, attempted to interview the patient (disoriented, no registration) and subsequently interviewed the patient DPOAHC. The following aspects are pertinent, current and remote medical history, social/emotional and family dynamics, current medications and effects, ROS, examination findings, prognosis, care planning, goal setting. Meds Home Medications and Allergies Home Medications Medication Instructions Recorded Confirmed Type acetaminophen 650 mg MA Q6HR PRN #10 ea 03/03/20 Rx atropine 2 drop SUBLINGUAL Q2HR PRN #5 ml 03/03/20 Rx lorazepam [Lorazepam Intensol] 0.25 mg SUBLINGUAL Q2H PRN #30 ml 03/03/20 Rx morphine 5 mg PO Q1H PRN #100 ml 03/03/20 Rx scopolamine base [Transderm-Scop] 1 patch TOPICAL Q72H PRN #5 ea 03/03/20 Rx Allergies Allergy/AdvReac Type Severity Reaction Status Date / Time Penicillins [PENICILLINS] Allergy Severe RASH, SOB Verified 02/19/20 08:55 Sulfa (Sulfonamide Allergy Severe SOB Verified 02/19/20 08:55 Antibiotics) [SULFA (SULFONAMIDE ANTIBIOTICS)] Review of Systems Review of Systems ROS: Yes unobtainable due to mental status Exam Vital Signs (past 8 hours): Oxygen Delivery Method Nasal Cannula Oxygen Flow Rate 0 Narrative Exam Narrative: 79-year-old fragile, cachectic woman is lying in bed, curled on her left side. She is confused to time place, and unable to participate in m edical decision making. Const General: ill appearing ( chronically) Nutritional Appearance: thin and underweight Orientation: confused ( time place) Limitations: altered mental status Resp Effort & Inspection: normal respiratory effort Neuro General: confused ( to time and place) Objective Labs Result Diagrams: 03/02/20 09:40 03/02/20 06:31 Assessment & Recommendations A & R narrative: Discussion: Attempted to meet with patient. Patient is very confused to time and place. She denies pain at this time. She states that she most trusts her daughter Marcella to make medical decisions for her. Met with Marcella and [id number] Rashmi with Dr. Lai. Dr. Lai updates the family regarding this unfortunate woman's medical status and her delirium, which has been exacerbated by medications. There is apprised to hear that the heart attack that their loved one sustained is more series to consider than they previously thought. They are also in receipt of the information that the patient's heart rate has to terrier to atrial fibrillation, and that she is anemic, likely due to gastrointestinal bleed. Discussed with patient family her overall frailty and delirium. There is apprised to hear that she is unable to participate in medical decision making at this time due to her delirium. Because her persistent delirium and her inability to swallow and take fluids, the patient has a very poor long-term prognosis per the medical team. Her family is in receipt of this information, and is in disbelief that her physical and mental status have deteriorated so significantly over the last 24 hours. Because of the patient's frailty, likely GI bleed, it is challenging for the medical team to provide medications to control the patient's heart rate, anticoagulate for her atrial fibrillation, without the potential of causing her worsening bleeding. In light of this information, patient's family would like to place the patient on comfort care and I have asked for an expedited referral to hospice agency to provide in-home support for end of life care for the patient. Recommendations: - Enter and maintain DNAR in patient's EMR - Comfort care per Dr. Lai - Referral to hospice agency of choice - Palliative Medicine to visit patient tomorrow to complete [facility] POLST Coding: -ground level fall -encephalopathy -NSTEMI -atrial fibrillation -anemia -failure to thrive -closed left hip fracture, status post pinning -altered level of consciousness -history of coronary artery disease -history of hypertension -history of peripheral vascular disease -history of malignant neoplasm of lower left lung -palliative medicine consultation To remain informed regarding current treatment opportunities, provider reviewed extensive additional documentation of multiple treatment providers/facilities which was utilized to update the management plan. Total time in review of additional medical information is 32 minutes, external to in person evaluation. Time in assessment and management of acute and chronic medical diagnoses, pert inent history to palliative medicine decision making, discussion and management of clinical findings enumerated above as well as fears regarding the transition to a more end of life plan and and dying is 45minutes, more than half of which is necessary for education and counseling. Advanced Care Planning discussion time is 20minutes. The patient currently has testamentary documents for estate planning, DPOAHC but lacks POLST and statement of wishes. Dialogue addresses patient preferences at the end/near end of life including resuscitation wishes (no CPR, DNAR). Additional care limits discussed above.
--- NOTE | 2020-03-05 03:21 | P.CONS_ITS ---
History of Present Illness Consult details Date Patient Seen: 03/03/20 Time Patient Seen: 11:00 Chief complaint: fell out of bed, left leg/hip/groin pain Reason for consult: Palliative medicine consultation Requesting provider: Brandi Lai Narrative: Reason for consultation: Palliative medicine follow up received from Dr. Lai regarding Ms. Zamzam Umanzor, a 79-year-old female, who was found down on the floor the morning of presentation (02/27/2020) by her daughter, with whom she resides. She has had a very complicated course since her admission, including pinning of her left hip s/p GLF and hip fracture, suffering an NSTEMI, atrial fibrillation. Family yesterday chose to forego further aggressive, restorative options for care, de-escalate her code status to DNAR, and place her on comfort care, as her multiple medical problems and encephalopathy proved too burdensome for their loved one to tolerate. Hospice has been consulted, no evaluation has been made thus far. The medical team requests assistance with coordinating and collaborating with the family her options for discharge home, including explaining the Hospice Medicare Benefit and offering the family an opportunity to complete a [facility] POLST for their loved one. I have reviewed the medical record, radiographs, diagnostics, attempted to interview the patient (disoriented, no registration) and subsequently interviewed the patient DPOAHC. The following aspects are pertinent, current and remote medical history, social/emotional and family dynamics, current medications and effects, ROS, examination findings, prognosis, care planning, goal setting. Meds Home Medications and Allergies Home Medications Medication Instructions Recorded Confirmed Type acetaminophen 650 mg PA Q6HR PRN #10 ea 03/03/20 Rx atropine 2 drop SUBLINGUAL Q2HR PRN #5 ml 03/03/20 Rx lorazepam [Lorazepam Intensol] 0.25 mg SUBLINGUAL Q2H PRN #30 ml 03/03/20 Rx morphine 5 mg PO Q1H PRN #100 ml 03/03/20 Rx scopolamine base [Transderm-Scop] 1 patch TOPICAL Q72H PRN #5 ea 03/03/20 Rx Allergies Allergy/AdvReac Type Severity Reaction Status Date / Time Penicillins [PENICILLINS] Allergy Severe RASH, SOB Verified 02/19/20 08:55 Sulfa (Sulfonamide Allergy Severe SOB Verified 02/19/20 08:55 Antibiotics) [SULFA (SULFONAMIDE ANTIBIOTICS)] Review of Systems Review of Systems ROS: Yes unobtainable due to mental status Exam Vital Signs (past 8 hours): Oxygen Delivery Method Nasal Cannula Oxygen Flow Rate 0 Narrative Exam Narrative: Frail, elderly woman laying in bed, appears englufed by the hospital mattress. Her breathing is even, though intermittent moist respirations are noted. She is not responsive. Feet are discolored purple, toes with 3+ second capillary refill. Objective Labs Result Diagrams: 03/02/20 09:40 03/02/20 06:31 Assessment & Recommendations A & R narrative: Discussion: Initially, met with patient's daughter Marcella at bedside. She expresses her desire to get her mother home in the care of a community based hospice agency. [facility] but have not been in contact with Marcella as of yet. A brief explanation of the Hospice Medicare Benefit is provided to Marcella. She would like to get her mother home today, if possible. Per social service director, a bed has been arranged for drop off tomorrow at 9am. Marcella would like her mother to be made comfortable in her bed (Marcella's) and will plan to move her to the hospital bed in the morning. She would like to proceed with the plans for hospice admission tomorrow morning, is aware that her mother appears to be a good candidate for transport today, but may decline overnight and not be stable for transport any longer. She is informed her mother has days to weeks of life left. UPDATE: Met with the patient's daughter and grand daughter in law Rashmi. Patient has been thinking of her mother going home on hospice and dying in her (Marcella's) bed, and has decided that she would like to have a hospital bed dropped off; the thought of her mother dying in her bed is very upsetting to her. She is aware that this request will delay her mother's discharge by a couple of hours. Collaborated with social service director and the hospice agency, who agrees to send a STAT order for a hospital bed to the patient's home in anticipation of her discharge and transport home at 6pm. Discussed medications with the hospice agency and made recommendations to the medical team regarding opiate analgesia, benzodiazepines, anticholinergics per the hospice medication orders as discussed with the agency. Reviewed [facility] POLST with MarcellaLencho, they choose options for DNAR for their loved one, comfort care measures only, no JIMBO by way of the gastrointestinal tract, and antibiotics only if they will make th eir loved one more comfortable. They are advised to keep this legal document on the refrigerator in the home. They are also advised that overnight, should they require any assistance, the hospice team has provided them a phone number to call for advise: . They state their understanding that she is not yet in the care of the hospice agency, and if she should overnight, they will need to call 911. They are reassured the [facility] POLST will protect Ms. Umanzor from aggressive, resuscitative measures. The hospice medications are reviewed with Nenita. Nursing staff demonstrates administration of the medication to the patient. Multiple contacts with the hospice team arranging DME, medications, and collaborating regarding care. Updated the medical team regarding the outcome of this palliative medicine consultation. Thank you for allowing us to be a part of this unfortunate woman's plan of care while here at the hospital. Recommendations: - Maintain DNAR in patient's EMR - Maintain [facility] POLST in EMR - Morphine 20mg/mL 5mg (0.25mL) SL q 1 hour PRN pain or discomfort - Lorazepam 2mg/mL 0.5mg (0.25mL) SL q 2 hours PRN anxiety - Scop patch apply 1 patch behind the ear every 72 hours as needed for excessive pulmonary secretions - Arrange bed/DME delivery at home with [facility] - Transport via Ambulance home - Comfort care per Dr. Lai to continue until transport, recommend pre- medication with opiate analgesia for comfort during transport - [facility]osp[facility] sales representative womens health plans to meet with patient in home tomorrow at 9-10 am Coding: -ground level fall -encephalopathy -NSTEMI -atrial fibrillation -anemia -failure to thrive -closed left hip fracture, status post pinning -altered level of consciousness -history of coronary artery disease -history of hypertension -history of peripheral vascular disease -history of malignant neoplasm of lower left lung -palliative medicine consultation To remain informed regarding current treatment opportunities, provider reviewed extensive additional documentation of multiple treatment providers/facilities which was utilized to update the management plan. Total time in review of additional medical information is 32 minutes, external to in person evaluation. Time in assessment and management of acute and chronic medical diagnoses, kwame murraynt history to palliative medicine decision making, discussion and management of clinical findings enumerated above as well as fears regarding the transition to a more end of life plan and and dying is 45minutes, more than half of which is necessary for education and counseling. Advanced Care Planning discussion time is 20minutes. The patient currently has testamentary documents for estate planning, DPOAHC but lacks POLST and statement of wishes. Dialogue addresses patient preferences at the end/near end of life including resuscitation wishes (no CPR, DNAR). Additional care limits discussed above.
== END 2020-03-03 17:50 | disposition hospice, home (50) | DRG 480 ==
LOC: ED 16:03 → AC 17:34
PROVIDERS: Internal Medicine; Nurse Practitioner Adult Health; Orthopaedic Surgery; Admitting Provider Internal Medicine; Emergency Provider Emergency Medicine; PCP Nurse Practitioner Family; Referring Provider Emergency Medicine; Visit Provider Internal Medicine
PROC: 0QH734Z Insertion of Internal Fixation Device into Left Upper Femur, Percutaneous Approach (ICD-10-PCS; principal; 2020-02-28 10:30)
DX: S72.012A Unspecified intracapsular fracture of left femur, initial encounter for closed fracture (principal); J96.21 Acute and chronic respiratory failure with hypoxia; I21.A1 Myocardial infarction type 2; G93.41 Metabolic encephalopathy; D62 Acute posthemorrhagic anemia; K92.1 Melena; J44.9 Chronic obstructive pulmonary disease, unspecified; I48.0 Paroxysmal atrial fibrillation; Z99.81 Dependence on supplemental oxygen; B19.20 Unspecified viral hepatitis C without hepatic coma; Z03.818 Encounter for observation for suspected exposure to other biological agents ruled out; I25.10 Atherosclerotic heart disease of native coronary artery without angina pectoris; Z95.0 Presence of cardiac pacemaker; I73.9 Peripheral vascular disease, unspecified; I10 Essential (primary) hypertension; E78.5 Hyperlipidemia, unspecified; G47.33 Obstructive sleep apnea (adult) (pediatric); Z85.118 Personal history of other malignant neoplasm of bronchus and lung; F17.210 Nicotine dependence, cigarettes, uncomplicated; F03.90 Unspecified dementia, unspecified severity, without behavioral disturbance, psychotic disturbance, mood disturbance, and anxiety; K21.9 Gastro-esophageal reflux disease without esophagitis; W06.XXXA Fall from bed, initial encounter; Z51.5 Encounter for palliative care; Z66 Do not resuscitate
CPT/HCPCS: 36415; 36600; 70450; 71045; 72100; 72125; 73502; 76000; 80048; 80053; 81001; 82140; 82550; 82553; 82805; 82962; 83735; 83880; 84145; 84484; 85014; 85018; 85025; 85610; 85730; 87633; 87635; 93005; 93306; 94640; 94760; 94762; 96361; 96374; 96375; 96376; 97110; 97162; 97165; 97530; 97535; 99233; 99285; 99497; C9113; J0692; J0696; J1630; J1650; J1940; J2060; J2270; J2704; J3010; J7613